=== PATIENT | male | born 1945 | race Caucasian/White ===

== ENCOUNTER 2017-09-30 11:08 | Inpatient (IN) ==
[2017-09-30] MEDS ORDERED: Morphine Inj 4 MG/ML Vial IV.PUSH ONE (11:45)
[2017-09-30] MEDS ORDERED: Piperacil/Tazo 4.5 GM Premix 4.5 GM/100 ML BAG IV.SIG ONE (11:50)
[2017-09-30] MEDS ORDERED: Vancomycin Inj 1,250 MG in Sodium Chlor 0.9% Inj 250 ML IV.SIG ONE (11:50)
--- NOTE | 2017-09-30 12:34 | XR ---
EXAM DATE: 09/30/2017 12:28 PM EDT AGE/SEX: 71 years / Male INDICATIONS: Left foot pain, fall. CLINICAL DATA: This is the patient's initial encounter. Patient reports that signs and symptoms have been present for 1 day and indicates a pain score of 7/10. MEDICAL/SURGICAL HISTORY: None. None. COMPARISON: No prior exams available for comparison. FINDINGS: Views of the left foot obtained. There is some minimal irregularity along the bases of the proximal p halanges 2 through 4. Soft tissues are prominent. Vascular calcifications. Large plantar calcaneal s pur. No radiopaque foreign bodies seen. CONCLUSION: Minimal irregularity along the bases of the proximal phalanges 2 through 4 to be fractures of indeter minate age. Clinical correlation as to whether patient has pain at the base of the toes. Electronically signed by: Bradley Smith MD 09/30/2017 12:33 PM EDT
[2017-09-30 12:42] LABS: Baso # (Auto) 0.1 th/mm3 (0.0-0.2); Baso % (Auto) 1.2 % (0.0-2.0); Eos # (Auto) 0.3 th/mm3 (0.0-0.4); Eos % (Auto) 3.9 % (0.0-4.0); Hematocrit 35.1 % (39.0-51.0); Hemoglobin 11.4 gm/dL (13.0-17.0); Lymph # (Auto) 1.4 th/mm3 (1.0-4.8); Lymph % (Auto) 17.8 % (9.0-44.0); Mean Corpuscular HGB Conc 32.4 % (32.0-36.0); Mean Corpuscular Hemoglobin 30.3 pg (27.0-34.0); Mean Corpuscular Volume 93.3 fL (80.0-100.0); Mean Platelet Volume 8.9 fL (7.0-11.0); Mono # (Auto) 0.6 th/mm3 (0.0-0.9); Mono % (Auto) 7.2 % (0.0-8.0); Neut # (Auto) 5.6 th/mm3 (1.8-7.7); Neut % (Auto) 69.9 % (16.0-70.0); Platelet Count 186 th/mm3 (150-450); Red Blood Count 3.76 mil/mm3 (4.50-5.90); Red Cell Distribution Width 16.5 % (11.6-17.2)
[2017-09-30 12:54] LABS: INR 1.5 Ratio
[2017-09-30 12:59] LABS: Calcium 8.6 mg/dL (8.5-10.1); Carbon Dioxide 26.7 meq/L (21.0-32.0)
--- NOTE | 2017-09-30 14:12 | P.HPFP ---
History of Present Illness Primary Care Physician: Lorelei Choi MD <Shreya Gould - 10/01/17 11:12> Lorelei Choi MD <Sisi Ulloa - 09/30/17 14:12> History of Present Illness: He is doing well this morning and has minimal if any complaints of pain. It was explained to him that there will be an attempt to get a bone biopsy to determine if he does have osteo-and what bacteria is present. He states he is essentially oliguric with his renal failure just over the past few years. He has been on dialysis for 4 years total. He is a serious vasculopath who had his first [place] in his 30s. <Shreya Gould - 10/01/17 11:12> 71 year old male with PMH of ESRD and CVD presents to the emergency room today due to swollen/necrotic Left middle toe. He stated he stubbed his toe on the living room stairs about 1 month ago. The toe was not bleeding when he hit it but he states that it looked black when he hit the toe. He started hopping on one foot for the majority of the month and stated that pain became throbbing as the month progressed. He describes the pain as a shocking pain, was given morphine in the ED which seemed to help his pain. He also has associated numbness and tingling in the Left foot. He can hop on his left foot but not able to be fully weightbearing. His [id number] noticed that his left middle toe was not healing appropriately and took him to the hardware sales assistant (Waylon) yesterday who sent him to the emergency room with the following note: "Please admit to medicine with a consult to podiatry and vascular surgery. Left foot osteomyelitis, no pulses. Needs lab, CTA with runoff, IV antibiotics days." Pulses were detected on Doppler in the emergency room. He denies any fever, night sweats or chills, no nausea or vomiting. Denies any chest pain, shortness of breath, heart palpitations, abdominal pain, problems with urination or defecation, claudication symptoms. 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 This includes certification that hospital inpatient services are reasonable and necessary and in the case of services not specified as inpatient-only under 42 CFR 419.22(n), that they are appropriately provided as inpatient services in accordance to with the 2-midnight benchmark under 43 CFR 412.3(e) <Shreya Gould 10/01/17 11:12> I certify that the inpatient services were ordered in accordance with Medicare regulations governing the order. This includes certification that hospital inpatient services are reasonable and necessary and in the case of services not specified as inpatient-only under 42 CFR 419.22(n), that they are appropriately provided as inpatient services in accordance to with the 2-midnight benchmark under 43 CFR 412.3(e) <Sisi Ulloa 09/30/17 14:12> Review of Systems other (Please see his history and physical done yesterday and his review of system) <Shryea Gould 10/01/17 11:12> All other systems reviewed negative except as stated in HPI < Sisi Ulloa 09/30/17 17:23> Constitutional: Denies chills, Denies fever(s) <Sisi Ulloa 09/30/17 14: 36> Eyes: Denies blurry vision <Sisi Ulloa 09/30/17 14:36> Cardiovascular: Denies chest pain, Denies rapid, pounding, or irregular heartbeat <Sisi Ulloa 09/30/17 14:36> Respiratory: Denies chest congestion, Denies cough <Sisi Ulloa 09/30/17 14:36> Gastrointestinal: Denies abdominal pain <Sisi Ulloa - 09/30/17 14:36> PMFSH - History History Provided By: Patient, Family Member <Sisi Ulloa - 09/30/17 14:12> - Medical History Medical History: Medical History (Last Updated 09/30/17 @ 14:35 by Sisi Ulloa MD, R1) Cardiac defibrillator in place Congestive heart failure Dialysis patient Fistula Hypertension Past heart attack <Shreya Gould Cira - 10/01/17 10:53> Medical History (Last Updated 09/30/17 @ 14:35 by Sisi Ulloa MD, R1) Cardiac defibrillator in place Congestive heart failure Dialysis patient Fistula Hypertension Past heart attack <Sisi Ulloa - 09/30/17 14:36> - Surgical History Surgical History: Surgical History (Last Updated 09/30/17 @ 14:35 by Sisi Ulloa MD, R1) Hx of cardiac cath <Shreya Gould Cira - 10/01/17 10:53> Surgical History (Last Updated 09/30/17 @ 14:35 by Sisi Ulloa MD, R1) Hx of cardiac cath <Sisi Ulloa - 09/30/17 14:36> - Family History Family History: Family History (Last Updated 09/30/17 @ 14:35 by Sisi Ulloa MD, R1) Father Cancer Mother Cancer Sister Family history of cancer Brother Diabetes Sister Diabetes <BryannaShreya august Cira - 10/01/17 10:53> Family History (Last Updated 09/30/17 @ 14:35 by Sisi Ulloa MD, R1) Father Cancer Mother Cancer Sister Family history of cancer Brother Diabetes Sister Diabetes <Sisi Ulloa - 09/30/17 14:36> - Tobacco History Smoking Status: Former smoker <Sisi Ulloa - 09/30/17 14:12> - Alcohol History How Often Do You Have a Drink Containing Alcohol: Never <Sisi Ulloa - 01/07 14:12> - Substance Use History Substance History: No History of Abuse, Past History (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) <Sisi Ulloa - 09/30/17 14:36> - Travel History Recent Travel in the [place] Within the Last 8 Weeks: No <Sisi Ulloa - 14:12> Recent Travel Out of the Country Within the Last 8 Weeks: No <Sisi Ulloa - 09/30/17 14:12> - Immunization History Tetanus Immunization: <5 Years <Sisi Ulloa - 09/30/17 14:12> Hx Influenza Vaccine This Season: Yes <LurdesjuarezSeng osorioSisi - 09/30/17 14:12> Medications and Allergies Allergies Allergy/AdvReac Type Severity Reaction Status Date / Time neomycin Allergy Severe Unverified 10/04/16 23:37 <Shreya Gould - 10/01/17 11:12> Home Medications Medication Instructions Recorded Confirmed Type carvedilol 6.25 mg PO BID 09/30/17 09/30/17 History fluoxetine 20 mg PO DAILY 09/30/17 09/30/17 History folic acid 1 mg PO DAILY 09/30/17 09/30/17 History furosemide 20 mg PO DAILY 09/30/17 09/30/17 History isosorbide mononitrate 30 mg PO DAILY 09/30/17 09/30/17 History mirtazapine 15 mg PO DAILY 09/30/17 09/30/17 History pantoprazole 40 mg PO DAILY 09/30/17 09/30/17 History vit B comp no.6-cyqma-[id number]-biotin 1 tab PO DAILY 09/30/17 09/30/17 History [Fanny-Emily Rx] warfarin 5 mg PO DAILY 09/30/17 09/30/17 History <Shreya Gould - 10/01/17 11:12> Active Medications: Active Medications Acetaminophen (Tylenol) 650 mg PO Q4H PRN PRN Reason: Temp > 100.4 Acetaminophen (Tylenol) 650 mg PO UNSCH PRN PRN Reason: SEE LABEL COMMENTS Al Hydroxide/Mg Hydroxide (Milk Of Magnesia Liq) 30 ml PO Q12H PRN PRN Reason: Mild Constipation Bisacodyl (Dulcolax Supp) 10 mg RECTAL DAILY PRN PRN Reason: SEVERE CONSITIPATION Carvedilol (Coreg) 6.25 mg PO BID VSEN Last Admin: 10/01/17 09:19 Dose: 6.25 mg Clonidine HCl (Catapres) 0.1 mg PO UNSCH PRN PRN Reason: SEE LABEL COMMENTS Diphenhydramine HCl (Benadryl) 25 mg PO UNSCH PRN PRN Reason: SEE LABEL COMMENTS Epoetin Ford (Epogen Inj) 5,000 unit IV.PUSH UNSCH PRN PRN Reason: SEE LABEL COMMENTS Fluoxetine HCl (Prozac) 20 mg PO DAILY SVNE Last Admin: 10/01/17 09:19 Dose: 20 mg Gelatin (Gelfoam 12 Mm/7 Mm Topical) 1 foam TOPICAL PRN PRN PRN Reason: help stop bleeding from site Gentamicin Sulfate (Gentamicin Inj) 20 mg OTHER WITH DIALYSIS PRN PRN Reason: Dwell Gentamycin Lock Heparin Sodium (Porcine) (Heparin Inj) 8,000 units OTHER WITH DIALYSIS PRN PRN Reason: for machine prime Heparin Sodium (Porcine) (Heparin Inj) 1,000 units OTHER WITH DIALYSIS PRN PRN Reason: Dwell Heparin to Fill Catheter Albumin Human (Flexbumin 25% Inj) 100 mls @ 60 mls/hr IV.SIG WITH DIALYSIS PRN PRN Reason: hypotension / volume replace Sodium Chloride (Ns Inj) 1,000 mls @ 200 mls/hr OTHER .Q5H PRN PRN Reason: for dialyzer flush PRN Sodium Chloride (Ns Inj) 1,000 mls @ 0 mls/hr IV.CONT .Q0M PRN PRN Reason: hypotension / volume replace Sodium Chloride (Ns Inj) 1,000 mls @ 0 mls/hr OTHER .Q0M PRN PRN Reason: for prime and rinse back Lactulose (Lactulose Liq) 30 ml PO DAILY PRN PRN Reason: SEVERE CONSITIPATION Mannitol (Mannitol Inj) 12.5 gm IV.PUSH UNSCH PRN PRN Reason: hypotension / volume replace Morphine Sulfate (Morphine Inj) 4 mg IV.PUSH Q3H PRN PRN Reason: PAIN 6-10;IF UNABLE TO TAKE PO Last Admin: 10/01/17 09:23 Dose: 4 mg Morphine Sulfate (Morphine Inj) 2 mg IV.PUSH Q3H PRN PRN Reason: PAIN 3-5; IF UABLE TO TAKE PO Naloxone HCl (Narcan Inj) 0.4 mg IV.PUSH UNSCH PRN PRN Reason: SEE LABEL COMMENTS Nitroglycerin (Nitrostat Sl) 0.4 mg SL Q5M PRN PRN Reason: CHEST PAIN Ondansetron HCl (Zofran Inj) 4 mg IV.PUSH Q6H PRN PRN Reason: NAUSEA OR VOMITING Ondansetron HCl (Zofran Inj) 4 mg IV.PUSH UNSCH PRN PRN Reason: NAUSEA OR VOMITING Pantoprazole Sodium (Protonix) 40 mg PO DAILY SVEN Last Admin: 10/01/17 09:18 Dose: 40 mg Sennosides (Senokot) 17.2 mg PO Q12H PRN PRN Reason: Moderate Constipation Sodium Chloride (Ns Flush) 5 ml IV.FLUSH PRN PRN PRN Reason: flush each lumen during HD Temazepam (Restoril) 15 mg PO HS PRN PRN Reason: INSOMNIA <Shreya Gould - 10/01/17 10:53> Exam Vital signs: Vital Signs 09/30/17 11:19 09/30/17 11:50 09/30/17 12:50 Temperature 97.3 F L Pulse Rate 73 71 69 Respiratory Rate 13 17 18 Blood Pressure 109/55 L 98/52 L 98/52 L Pulse Oximetry 97 96 96 09/30/17 13:50 09/30/17 15:59 09/30/17 18:16 Temperature Pulse Rate 72 74 76 Respiratory Rate 17 18 18 Blood Pressure 107/53 L 121/57 L 120/56 L Pulse Oximetry 94 L 96 96 09/30/17 20:44 09/30/17 23:54 10/01/17 02:00 Temperature 97.7 F 97.4 F L Pulse Rate 70 69 Respiratory Rate 18 18 16 Blood Pressure 105/54 L 95/51 L Pulse Oximetry 95 97 10/01/17 03:32 10/01/17 08:00 10/01/17 09:17 Temperature 97.3 F L 97.5 F L Pulse Rate 72 71 75 Respiratory Rate 18 14 Blood Pressure 110/60 98/50 L 135/61 Pulse Oximetry 95 96 Intake & Output 09/30/17 10/01/17 10/01/17 18:59 06:59 18:59 Intake Total 362.5 / 362.5 480 / 480 Balance 362.5 / 362.5 480 / 480 Weight 77 kg 79.3 kg Intake: IV 362.5 / 362.5 Zosyn 4.5 GM Premix 4.5 gm In 100 / 100 100 ml @ 200 mls/hr IV.SIG ONCE ONE Rx#:[id number] Vancomycin Inj 1,250 MG In NS 262.5 / 262.5 Inj 250 ML @ 250 mls/hr IV.SIG ONCE ONE Rx#:[id number] Oral 480 / 480 Other: # Voids 0 Date of Last Bowel Movement 09/29/17 # Bowel Movements 0 Weight On Admission 79.379 kg <BryannaShreya august Cira - 10/01/17 11:12> Vital Signs 09/30/17 11:19 09/30/17 11:50 09/30/17 12:50 Temperature 97.3 F L Pulse Rate 73 71 69 Respiratory Rate 13 17 18 Blood Pressure 109/55 L 98/52 L 98/52 L Pulse Oximetry 97 96 96 09/30/17 13:50 Temperature Pulse Rate 72 Respiratory Rate 17 Blood Pressure 107/53 L Pulse Oximetry 94 L Intake & Output 09/29/17 09/30/17 09/30/17 18:59 06:59 18:59 Intake Total 362.5 / 362.5 Balance 362.5 / 362.5 Weight 77 kg Intake: IV 362.5 / 362.5 Zosyn 4.5 GM Premix 4.5 gm In 100 / 100 100 ml @ 200 mls/hr IV.SIG ONCE ONE Rx#:[id number] Vancomycin Inj 1,250 MG In NS 262.5 / 262.5 Inj 250 ML @ 250 mls/hr IV.SIG ONCE ONE Rx#:[id number] <Sisi Ulloa - 09/30/17 14:12> - Constitutional no acute distress, average body habitus, cooperative <PortolaShreya Cira - 10/01/17 11:12> no acute distress <Sisi Ulloa - 09/30/17 17:23> - Routine HEENT Exam Head: Present: normocephalic, atraumatic <Sisi Ulloa - 09/30/17 17:23> - Routine Neck Exam Present: swelling (He has what feels like a fatty tumor on his left neck,it is soft and mobile) <BryannaDeejayShreya M - 10/01/17 11:12> - Routine Respiratory Exam Present: CTA bilaterally <Sisi Ulloa - 09/30/17 17:23> - Routine Cardiovascular Exam Present: murmur. Absent: gallop, rubs <Shreya Gould Cira - 02/06 11:12> Present: RRR, S1, S2. Absent: murmur <Sisi Ulloa - 17:23> - Routine Abdominal Exam Present: soft, normoactive bowel sounds. Absent: tenderness <Sisi Ulloa - 09/30/17 17:23> - Routine Extremities Exam Present: extremity cold to touch. Absent: pulses intact (Pulses appreciated Via Doppler, PTand DP pulses nonpalpable.) <Sisi Ulloa - 09/30/17 17:23> Comments: Both feet are cool to the touch at all metatarsals bilaterally. Unable to appreciate a palpable dorsalis pedis and posterior tibialis pulse. Patient is able to wiggle his toes. Sensation to light touch intact bilaterally in both feet. There is a 2 cm necrotic ulcer appreciated on the left toe with the appearance of bone. 0.5 cm area of necrosis appreciated on the left hallux , 0.5 cm necrotic area appreciated on the right hallux. <Sisi Ulloa - 09/30/17 17:23> Results - Labs Result diagrams: 09/30/17 11:50 09/30/17 11:50 <Shreya Gould Cira - 10/01/17 11:12> Abnormal lab results 09/30/17 09/30/17 09/30/17 Range/Units 11:50 11:50 11:50 RBC 3.76 L (4.50-5.90) mil/mm3 Hgb 11.4 L (13.0-17.0) gm/dL Hct 35.1 L (39.0-51.0) % PT 15.0 H (9.8-11.6) sec Chloride 97 L (98-107) meq/L BUN 36 H (7-18) mg/dL Creatinine 9.06 H (0.60-1.30) mg/dL Estimated GFR 6 L (>89) mL/min Random Glucose 108 H (74-106) mg/dL C-Reactive Protein (0.00-0.30) mg/dL 09/30/17 Range/Units 11:50 RBC (4.50-5.90) mil/mm3 Hgb (13.0-17.0) gm/dL Hct (39.0-51.0) % PT (9.8-11.6) sec Chloride (98-107) meq/L BUN (7-18) mg/dL Creatinine (0.60-1.30) mg/dL Estimated GFR (>89) mL/min Random Glucose (74-106) mg/dL C-Reactive Protein 5.00 H (0.00-0.30) mg/dL Short CBC 09/30/17 Range/Units 11:50 WBC 8.0 (4.0-11.0) th/mm3 Hgb 11.4 L (13.0-17.0) gm/dL Hct 35.1 L (39.0-51.0) % Plt Count 186 (150-450) th/mm3 [facility] 09/30/17 11:50 Sodium 136 Potassium 4.0 Chloride 97 L Carbon Dioxide 26.7 BUN 36 H Creatinine 9.06 H Calcium 8.6 <Shreya Gould - 10/01/17 11:12> Abnormal lab results 09/30/17 09/30/17 09/30/17 Range/Units 11:50 11:50 11:50 RBC 3.76 L (4.50-5.90) mil/mm3 Hgb 11.4 L (13.0-17.0) gm/dL Hct 35.1 L (39.0-51.0) % PT 15.0 H (9.8-11.6) sec Chloride 97 L (98-107) meq/L BUN 36 H (7-18) mg/dL Creatinine 9.06 H (0.60-1.30) mg/dL Estimated GFR 6 L (>89) mL/min Random Glucose 108 H (74-106) mg/dL Short CBC 09/30/17 Range/Units 11:50 WBC 8.0 (4.0-11.0) th/mm3 Hgb 11.4 L (13.0-17.0) gm/dL Hct 35.1 L (39.0-51.0) % Plt Count 186 (150-450) th/mm3 [facility] 09/30/17 11:50 Sodium 136 Potassium 4.0 Chloride 97 L Carbon Dioxide 26.7 BUN 36 H Creatinine 9.06 H Calcium 8.6 <Sisi Ulloa - 09/30/17 14:12> - Imaging Impressions Chest X-Ray 09/30/17 00:00 CONCLUSION: New patchy infiltrate in the right perihilar and infrahilar area. Foot CT 09/30/17 00:00 CONCLUSION: 1. No acute fracture or joint dislocation. Foot X-Ray 09/30/17 11:45 CONCLUSION: Minimal irregularity along the bases of the proximal phalanges 2 through 4 to be fractures of indeterminate age. Clinical correlation as to whether patient has pain at the base of the toes. <Shreya Gould - 10/01/17 11:12> Impressions Foot X-Ray 09/30/17 11:45 CONCLUSION: Minimal irregularity along the bases of the proximal phalanges 2 through 4 to be fractures of indeterminate age. Clinical correlation as to whether patient has pain at the base of the toes. <Sisi Ulloa - 09/30/17 14:12> Caprini VTE Risk Assessment Caprini VTE Risk Assessment: No/Low Risk (score <= 1) <Sisi Ulloa - 17:23> Caprini Risk Assessment Model: Point Value = 1 Point Value = 2 Point Value = 3 Point Value = 5 Age 41-60 Minor surgery BMI > 25 kg/m2 Swollen legs Varicose veins or History of unexplained or recurrent spontaneous Oral contraceptives or hormone replacement Sepsis (< 1 month) Serious lung disease, including pneumonia (< 1 month) Abnormal pulmonary function Acute myocardial infarction Congestive heart failure (< 1 month) History of inflammatory bowel disease Medical patient at bed rest Age 61-74 Arthroscopic surgery Major open surgery (> 45 min) Laparoscopic surgery (> 45 min) Malignancy Confined to bed (> 72 hours) Immobilizing plaster cast Central venous access Age >= 75 History of VTE Family history of VTE Factor V Leiden Prothrombin [id number] Lupus anticoagulant Anticardiolipin antibodies Elevated serum homocysteine Heparin-induced thrombocytopenia Other congenital or acquired thrombophilia Stroke (< 1 month) Elective arthroplasty Hip, pelvis, or leg fracture Acute spinal cord injury (< 1 month) <Shreya Gould - 10/01/17 11:12> Point Value = 1 Point Value = 2 Point Value = 3 Point Value = 5 Age 41-60 Minor surgery BMI > 25 kg/m2 Swollen legs Varicose veins or History of unexplained or recurrent spontaneous Oral contraceptives or hormone replacement Sepsis (< 1 month) Serious lung disease, including pneumonia (< 1 month) Abnormal pulmonary function Acute myocardial infarction Congestive heart failure (< 1 month) History of inflammatory bowel disease Medical patient at bed rest Age 61-74 Arthroscopic surgery Major open surgery (> 45 min) Laparoscopic surgery (> 45 min) Malignancy Confined to bed (> 72 hours) Immobilizing plaster cast Central venous access Age >= 75 History of VTE Family history of VTE Factor V Leiden Prothrombin [id number] Lupus anticoagulant Anticardiolipin antibodies Elevated serum homocysteine Heparin-induced thrombocytopenia Other congenital or acquired thrombophilia Stroke (< 1 month) Elective arthroplasty Hip, pelvis, or leg fracture Acute spinal cord injury (< 1 month) <Sisi Ulloa - 09/30/17 14:12> Prophylaxis Regimen: Total Risk Factor Score Risk Level Prophylaxis Regimen 0-1 Low Early ambulation 2 Moderate Order ONE of the following: *Sequential Compression Device (SCD) *Heparin 5000 units SQ BID 3-4 Higher Order ONE of the following medications: *Heparin 5000 units SQ TID *Enoxaparin/Lovenox 40 mg SQ daily (WT < 150 kg, CrCl > 30 mL/min) *Enoxaparin/Lovenox 30 mg SQ daily (WT < 150 kg, CrCl > 10-29 mL/min) *Enoxaparin/Lovenox 30 mg SQ BID (WT < 150 kg, CrCl > 30 mL/min) AND/OR *Sequential Compression Device (SCD) 5 or more Highest Order ONE of the following medications: *Heparin 5000 units SQ TID (Preferred with Epidurals) *Enoxaparin/Lovenox 40 mg SQ daily (WT < 150 kg, CrCl > 30 mL/min) *Enoxaparin/Lovenox 30 mg SQ daily (WT < 150 kg, CrCl > 10-29 mL/min) *Enoxaparin/Lovenox 30 mg SQ BID (WT < 150 kg, CrCl > 30 mL/min) AND *Sequential Compression Device (SCD) <Shreya Gould - 10/01/17 11:12> Total Risk Factor Score Risk Level Prophylaxis Regimen 0-1 Low Early ambulation 2 Moderate Order ONE of the following: *Sequential Compression Device (SCD) *Heparin 5000 units SQ BID 3-4 Higher Order ONE of the following medications: *Heparin 5000 units SQ TID *Enoxaparin/Lovenox 40 mg SQ daily (WT < 150 kg, CrCl > 30 mL/min) *Enoxaparin/Lovenox 30 mg SQ daily (WT < 150 kg, CrCl > 10-29 mL/min) *Enoxaparin/Lovenox 30 mg SQ BID (WT < 150 kg, CrCl > 30 mL/min) AND/OR *Sequential Compression Device (SCD) 5 or more Highest Order ONE of the following medications: *Heparin 5000 units SQ TID (Preferred with Epidurals) *Enoxaparin/Lovenox 40 mg SQ daily (WT < 150 kg, CrCl > 30 mL/min) *Enoxaparin/Lovenox 30 mg SQ daily (WT < 150 kg, CrCl > 10-29 mL/min) *Enoxaparin/Lovenox 30 mg SQ BID (WT < 150 kg, CrCl > 30 mL/min) AND *Sequential Compression Device (SCD) <Sisi Ulloa - 09/30/17 14:12> 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 Code(s): L97.904 - Non-pressure chronic ulcer of unspecified part of unspecified lower leg with necrosis of bone Status: Acute (2) ESRD (end stage renal disease) Code(s): N18.6 - End stage renal disease Status: Acute (3) Hypertension Code(s): I10 - Essential (primary) hypertension Status: Acute (4) Anxiety Code(s): F41.9 - Anxiety disorder, unspecified Status: Acute (5) Congestive heart failure Code(s): I50.9 - Heart failure, unspecified Status: Acute (6) Nutrition, metabolism, and development symptoms Code(s): R63.8 - Other symptoms and signs concerning food and fluid intake Status: Acute (7) DVT prophylaxis Status: Acute <Shreya Gould - 10/01/17 11:12> 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 Patient afebrile, VSS, White count 8.0, x-ray does not show any signs of osteomyelitis. Podiatry treat consulted, will appreciate recommendations. Vascular surgery consulted, appreciate recommendations We will obtain tissue culture via podiatry. Blood cultures ordered, follow-up. ESRCRP ordered. Follow-up Follow-up CMP and CBC in a.m. Tylenol as needed for pain control. Morphine for breakthrough. Will consider Ceftriaxone and Clindamycin for coverage if Cultures come back positive for infection. (2) ESRD (end stage renal disease) Code(s): N18.6 - End stage renal disease Status: Acute Plan: Creatinine: 9.06. On dialysis but missed his dialysis appointment today. Nephrology consulted, appreciate recommendations. Please avoid any nephrotoxic drugs. (3) Hypertension Code(s): I10 - Essential (primary) hypertension Status: Acute Plan: Vital signs stable. Continue home medications Vital signs every 4. Patient currently on telemetry. EKG ordered. Follow-up. (4) Anxiety Code(s): F41.9 - Anxiety disorder, unspecified Status: Acute Plan: Continue home medications. (5) Congestive heart failure Code(s): I50.9 - Heart failure, unspecified Status: Acute Plan: Currently stable. Continue to monitor On Lasix 40 mg at home, will hold and appreciate nephrology's recommendations status post dialysis. Lasix dose is based on dialysis routine. (6) Nutrition, metabolism, and development symptoms Code(s): R63.8 - Other symptoms and signs concerning food and fluid intake Status: Acute Plan: Fluids: Encourage p.o. Electrolytes: Monitor and replete as needed. Diet. Cardiac (7) DVT prophylaxis Status: Acute Plan: SCDs only. PT/INR ordered in a.m. Follow-up. <Sisi Ulloa - 09/30/17 17:42> - Attending Attestation The exam, history, and the medical decision-making described in the above note were completed with the assistance of the resident physician. I reviewed and agree with the findings presented. I attest that I had a [id number] encounter with the patient on the same day, and personally performed and documented my assessment and findings in the medical record. He was seen on the day of admission. Fortunately his white count is not elevated he is not febrile and he would be best served if possible by getting a bone biopsy to see if he has osteomyelitis and what organism is present. Appreciate the help of podiatry as he may need amputation of that toe. Also he will need a vascular study as almost certainly he has poor peripheral vascular blood flow. <Shreya Gould - 10/01/17 10:53> <Shreya Gould M - Last Filed: 10/01/17 11:12> (3) Hypertension Qualifiers: Hypertension type: renovascular hypertension Qualified Code(s): I15.0 - Renovascular hypertension <Shreya Gould - Last Filed: 10/01/17 11:12> (3) Hypertension Qualifiers: Hypertension type: renovascular hypertension Qualified Code(s): I15.0 - Renovascular hypertension
--- NOTE | 2017-09-30 14:32 | ED ---
HPI General Chief Complaint: Extremity Injury, Lower Stated Complaint: Medical/toe complaint Time Seen by Provider: 09/30/17 11:31 Source: patient and family Mode of arrival: ambulatory Limitations: no limitations History of Present Illness HPI Narrative: Patient is a 71-year-old male, past medical history significant for hypertension, end-stage renal disease on dialysis (due today), coronary artery disease and peripheral vascular disease who presents with complaint of chronic infection to a toe on his left foot (3rd toe). He was seen by a citizenship teacher yesterday and told to come to the emergency department for further workup, admission and likely amputation. Patient complains of pain but otherwise feels well. Family was told that he had no pulses in his left foot yesterday. Onset (ago): unknown Related Data Home Medications Medication Instructions Recorded Confirmed carvedilol 6.25 mg PO BID 09/30/17 09/30/17 fluoxetine 20 mg PO DAILY 09/30/17 09/30/17 folic acid 1 mg PO DAILY 09/30/17 09/30/17 furosemide 20 mg PO DAILY 09/30/17 09/30/17 isosorbide mononitrate 30 mg PO DAILY 09/30/17 09/30/17 mirtazapine 15 mg PO DAILY 09/30/17 09/30/17 pantoprazole 40 mg PO DAILY 09/30/17 09/30/17 vit B comp no.8-htety-V-biotin 1 tab PO DAILY 09/30/17 09/30/17 [[facility]] warfarin 5 mg PO DAILY 09/30/17 09/30/17 Allergies Allergy/AdvReac Type Severity Reaction Status Date / Time neomycin Allergy Severe Unverified 10/04/16 23:37 Review of Systems ROS: all other systems reviewed are negative Constitutional Denies chills and Denies fever(s) Eyes Denies blurry vision ENT Denies nasal congestion Cardiovascular Denies chest pain Respiratory Denies dyspnea Gastrointestinal Denies abdominal pain Genitourinary Denies flank pain Musculoskeletal Denies back pain Integumentary/Breasts Denies rash Neurologic Denies headache(s) Psychiatric Denies confusion Endocrine Denies fatigue [facility] Medical History Medical History Cardiac defibrillator in place (Acute) Dialysis patient (Acute) Fistula (Acute) Hypertension (Acute) Past heart attack (Acute) Surgical History Surgical History Hx of cardiac cath (Acute) Family History Family History Father Cancer Mother Cancer Sister Family history of cancer Brother Diabetes Sister Diabetes Social History Social History Substance History: No History of Abuse and Past History (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 Toes on bilateral feet are slightly erythematous but not warm and with normal cap refill. Left third toe has an area of necrosis. HEAD: Atraumatic. Normocephalic. EYES: Pupils equal and round. No scleral icterus. No injection or drainage. ENT: No nasal bleeding or discharge. Mucous membranes pink and moist. NECK: Trachea midline. No JVD. CARDIOVASCULAR: Regular rate and rhythm. No murmur appreciated. Strong DP and PT pulses bilaterally with Doppler. Positive thrill in left upper extremity ( fistula). RESPIRATORY: No accessory muscle use. Clear to auscultation. Breath sounds equal bilaterally. GASTROINTESTINAL: Abdomen soft, non-tender, nondistended. Hepatic and splenic margins not palpable. MUSCULOSKELETAL: No obvious deformities. No clubbing. No cyanosis. NEUROLOGICAL: Awake and alert. No obvious cranial nerve deficits. Motor grossly within normal limits. Normal speech. PSYCHIATRIC: Appropriate mood and affect; insight and judgment normal. Course Initial Documented Vital Signs Temperature 97.3 F L 09/30/17 11:19 Pulse Rate 73 09/30/17 11:19 Respiratory Rate 13 09/30/17 11:19 Blood Pressure 109/55 L 09/30/17 11:19 Pulse Oximetry 97 09/30/17 11:19 Last Documented Vital Signs Temperature 97.3 F L 09/30/17 11:19 Pulse Rate 72 09/30/17 13:50 Respiratory Rate 17 09/30/17 13:50 Blood Pressure 107/53 L 09/30/17 13:50 Pulse Oximetry 94 L 09/30/17 13:50 Medical Decision Making MDM Narrative Medical decision making narrative: Patient is a 71-year-old male who presents with complaint of necrotic area to the left third toe. He was sent here by podiatry to be admitted and have a likely amputation. He has strong Doppler signals PT and DP bilaterally this CTA was not done. Labs were unremarkable from baseline. He was given antibiotics empirically and admitted to the resident admitting service for further evaluation and management. Differential Diagnosis Differential Diagnosis: Differential diagnosis includes but is not limited to osteomyelitis, fracture, necrotizing fasciitis, ischemia. Medical Records Medical records reviewed: Yes I reviewed the patient's medical records. Lab Data Lab results reviewed: Yes I reviewed the patient's lab results. Lab results narrative: Labs reveal chronic kidney disease with a normal potassium. Result diagrams: 09/30/17 11:50 09/30/17 11:50 Lab Results 09/30/17 09/30/17 09/30/17 Range/Units 11:50 11:50 11:50 WBC 8.0 (4.0-11.0) th/mm3 RBC 3.76 L (4.50-5.90) mil/mm3 Hgb 11.4 L (13.0-17.0) gm/dL Hct 35.1 L (39.0-51.0) % MCV 93.3 (80.0-100.0) fL MCH 30.3 (27.0-34.0) pg MCHC 32.4 (32.0-36.0) % RDW 16.5 (11.6-17.2) % Plt Count 186 (150-450) th/mm3 MPV 8.9 (7.0-11.0) fL Neut % (Auto) 69.9 (16.0-70.0) % Lymph % (Auto) 17.8 (9.0-44.0) % [place] % (Auto) 7.2 (0.0-8.0) % Eos % (Auto) 3.9 (0.0-4.0) % Baso % (Auto) 1.2 (0.0-2.0) % Neut # (Auto) 5.6 (1.8-7.7) th/mm3 Lymph # (Auto) 1.4 (1.0-4.8) th/mm3 [place] # (Auto) 0.6 (0.0-0.9) th/mm3 Eos # (Auto) 0.3 (0.0-0.4) th/mm3 Baso # (Auto) 0.1 (0.0-0.2) th/mm3 WBC Differential . Differential Comment Auto diff final PT 15.0 H (9.8-11.6) sec INR 1.5 Ratio Sodium 136 (136-145) meq/L Potassium 4.0 (3.5-5.1) meq/L Chloride 97 L (98-107) meq/L Carbon Dioxide 26.7 (21.0-32.0) meq/L Anion Gap 12 (5-15) meq/L BUN 36 H (7-18) mg/dL Creatinine 9.06 H (0.60-1.30) mg/dL Estimated GFR 6 L (>89) mL/min Random Glucose 108 H (74-106) mg/dL Calcium 8.6 (8.5-10.1) mg/dL Imaging Data Attestation: I personally reviewed and interpreted this imaging study as follows : My impression: No soft tissue gas. Radiologist's impression: Foot X-Ray 09/30/17 11:45 CONCLUSION: Minimal irregularity along the bases of the proximal phalanges 2 through 4 to be fractures of indeterminate age. Clinical correlation as to whether patient has pain at the base of the toes. Discharge Plan Discharge Disposition Patient Disposition: 30 Still Patient Discharge Condition Condition: Stable Discharge Details Diagnosis: Osteomyelitis Physicians Team ED Provider: Ce Dowling Primary Care Provider: Lorelei Choi Attending Provider: Shreya Gould Discharge Interventions Interventions: Vital Signs Last Done: 09/30/17 13:50 Status ED Status: Admitted Patient
[2017-09-30] MEDS ORDERED: Temazepam 15 MG Capsule PO PRN (14:55)
[2017-09-30] MEDS ORDERED: Bisacodyl 10 MG Supp RECTAL PRN (14:55)
[2017-09-30] MEDS ORDERED: Acetaminophen 325 MG Tablet PO PRN (14:55)
--- NOTE | 2017-09-30 15:41 | XR ---
EXAM DATE: 09/30/2017 3:35 PM EDT AGE/SEX: 71 years / Male INDICATIONS: . Shortness of breath. Feet infection. CLINICAL DATA: This is the patient's initial encounter. Patient reports that signs and symptoms have been present for 1 day and indicates a pain score of 0/10. MEDICAL/SURGICAL HISTORY: None. Defibrillator. COMPARISON: [facility], XR CHEST PA AND LAT, 01/08/2014. . FINDINGS: On today's examination appears to be a patchy infiltrate in the right perihilar and infrahilar area. The left lung is grossly clear. The heart size is diffusely enlarged but stable compared to the prior study. There is a pacemaker overlying the right chest. There is no pneumothorax. The bony structures are grossly intact. CONCLUSION: New patchy infiltrate in the right perihilar and infrahilar area. Electronically signed by: Catalino Parrish MD 09/30/2017 3:40 PM EDT
--- NOTE | 2017-09-30 16:02 | CT ---
EXAM DATE: 09/30/2017 3:42 PM EDT AGE/SEX: 71 years / Male INDICATIONS: Swollen and necrotic left middle toe. Evaluate for osteomyelitis. CLINICAL DATA: This is the patient's initial encounter. Patient reports that signs and symptoms have been present for 1 month and indicates a pain score of 6/10. MEDICAL/SURGICAL HISTORY: Congestive heart failure. Hypertension. Dialysis. Renal failure. Defib rillator. RADIATION DOSE: 3.45 CTDI (mGy) COMPARISON: [facility], FOOT COMPLETE LEFT 3V, 09/30/2017. . TECHNIQUE: Multiple contiguous axial images were acquired using a multirow detector CT scanner witho ut contrast. Multiplanar reconstruction was performed in the sagittal and coronal planes. Using auto mated exposure control and adjustment of the mA and/or kV according to patient size, radiation dose w as kept as low as reasonably achievable to obtain optimal diagnostic quality images. DICOM format im age data is available electronically for review and comparison. FINDINGS: Bones: The bony structures about the forefoot are in normal alignment. The metatarsi, phalanges, an d distal tarsal row osseous structures are intact. No fracture is seen. Joints: There is some mild degenerative changes at the PIP and DIP joints. Soft Tissues: No soft tissue mass is seen. Other: No foreign bodies seen. CONCLUSION: 1. No acute fracture or joint dislocation. Electronically signed by: Catalino Parrish MD 09/30/2017 4:01 PM EDT
[2017-09-30] MEDS ORDERED: Naloxone Inj 0.4 MG/ML Vial IV.PUSH PRN (17:11)
--- NOTE | 2017-09-30 20:11 | P.PNVS ---
Subjective Subjective/Hospital Course: 09/30/2017 Referral received Full vascular consult to follow Abhinav Rojo Objective Vital Signs / I&O: Vital Signs 09/30/17 11:19 09/30/17 11:50 09/30/17 12:50 Temperature 97.3 F L Pulse Rate 73 71 69 Respiratory Rate 13 17 18 Blood Pressure 109/55 L 98/52 L 98/52 L Pulse Oximetry 97 96 96 09/30/17 13:50 09/30/17 15:59 09/30/17 18:16 Temperature Pulse Rate 72 74 76 Respiratory Rate 17 18 18 Blood Pressure 107/53 L 121/57 L 120/56 L Pulse Oximetry 94 L 96 96 Intake & Output 09/30/17 09/30/17 10/01/17 06:59 18:59 06:59 Intake Total 362.5 / 362.5 Balance 362.5 / 362.5 Weight 77 kg 79.379 kg Intake: IV 362.5 / 362.5 Zosyn 4.5 GM Premix 4.5 gm In 100 / 100 100 ml @ 200 mls/hr IV.SIG ONCE ONE Rx#:[id number] Vancomycin Inj 1,250 MG In NS 262.5 / 262.5 Inj 250 ML @ 250 mls/hr IV.SIG ONCE ONE Rx#:[id number] Other: Weight On Admission 79.379 kg Laboratory Results - last 24 hr 09/30/17 09/30/17 09/30/17 11:50 11:50 11:50 WBC 8.0 RBC 3.76 L Hgb 11.4 L Hct 35.1 L MCV 93.3 MCH 30.3 MCHC 32.4 RDW 16.5 Plt Count 186 MPV 8.9 Neut % (Auto) 69.9 Lymph % (Auto) 17.8 [place] % (Auto) 7.2 Eos % (Auto) 3.9 Baso % (Auto) 1.2 Neut # (Auto) 5.6 Lymph # (Auto) 1.4 [place] # (Auto) 0.6 Eos # (Auto) 0.3 Baso # (Auto) 0.1 WBC Differential . Differential Comment Auto diff final PT 15.0 H INR 1.5 Sodium 136 Potassium 4.0 Chloride 97 L Carbon Dioxide 26.7 Anion Gap 12 BUN 36 H Creatinine 9.06 H Estimated GFR 6 L Random Glucose 108 H Calcium 8.6 C-Reactive Protein 09/30/17 11:50 WBC RBC Hgb Hct MCV MCH MCHC RDW Plt Count MPV Neut % (Auto) Lymph % (Auto) [place] % (Auto) Eos % (Auto) Baso % (Auto) Neut # (Auto) Lymph # (Auto) [place] # (Auto) Eos # (Auto) Baso # (Auto) WBC Differential Differential Comment PT INR Sodium Potassium Chloride Carbon Dioxide Anion Gap BUN Creatinine Estimated GFR Random Glucose Calcium C-Reactive Protein 5.00 H Impressions Chest X-Ray 09/30/17 00:00 CONCLUSION: New patchy infiltrate in the right perihilar and infrahilar area. Foot CT 09/30/17 00:00 CONCLUSION: 1. No acute fracture or joint dislocation. Foot X-Ray 09/30/17 11:45 CONCLUSION: Minimal irregularity along the bases of the proximal phalanges 2 through 4 to be fractures of indeterminate age. Clinical correlation as to whether patient has pain at the base of the toes.
[2017-09-30] MEDS: Carvedilol 6.25 MG Tablet PO SCH (22:07)
--- NOTE | 2017-10-01 08:33 | ECG ---
Date Performed: 09/30/2017 Time Performed: 16:01:36 PTAGE: 71 years EKG: ELECTRONIC ATRIAL PACEMAKER LOW QRS VOLTAGE IN EXTREMITY LEADS POSSIBLE ANTERIOR MYOCARDIAL INFARCTION INFERIOR MYOCARDIAL INFARCTION ABNORMAL ECG PREVIOUS TRACING : 12/04/2013 11.55 DOCTOR: David Phillips Interpretating Date/Time 10/01/2017 08:28:23
[2017-10-01] MEDS ORDERED: Sod Chloride 0.9% Inj 1,000 ML OTHER PRN ×2 (09:08)
[2017-10-01] MEDS ORDERED: Gelatin 12 MM/7 MM Topical Foam TOPICAL PRN (09:08)
[2017-10-01] MEDS ORDERED: Sod Chloride 0.9% Inj 1,000 ML IV.CONT PRN (09:08)
[2017-10-01] MEDS ORDERED: Heparin 10,000 UNITS/10 ML Vial (for IV use) OTHER PRN ×2 (09:08)
[2017-10-01] MEDS ORDERED: Acetaminophen 325 MG Tablet PO PRN (09:09)
[2017-10-01] MEDS: FLUoxetine 20 MG Capsule PO SCH (09:19)
[2017-10-01] MEDS: Carvedilol 6.25 MG Tablet PO SCH ×2 (09:19→21:52)
[2017-10-01] MEDS: Morphine Inj 4 MG/ML Vial IV.PUSH PRN ×3 (09:23→22:10)
--- NOTE | 2017-10-01 10:19 | P.HPFP ---
History of Present Illness Primary Care Physician: Lorelei Choi MD History of Present Illness: 71 year old male with PMH of ESRD and CVD presents to the emergency room today due to swollen/necrotic Left middle toe. He stated he stubbed his toe on the living room stairs about 1 month ago. The toe was not bleeding when he hit it but he states that it looked black when he hit the toe. He started hopping on one foot for the majority of the month and stated that pain became throbbing as the month progressed. He describes the pain as a shocking pain, was given morphine in the ED which seemed to help his pain. He also has associated numbness and tingling in the Left foot. He can hop on his left foot but not able to be fully weightbearing. His [id number] noticed that his left middle toe was not healing appropriately and took him to the steel grinder ([facility]) yesterday who sent him to the emergency room with the following note: "Please admit to medicine with a consult to podiatry and vascular surgery. Left foot osteomyelitis, no pulses. Needs lab, CTA with runoff, IV antibiotics days." Pulses were detected on Doppler in the emergency room. He denies any fever, night sweats or chills, no nausea or vomiting. Denies any chest pain, shortness of breath, heart palpitations, abdominal pain, problems with urination or defecation, claudication symptoms. He is doing well today. He is stable with his vital signs afebrile his white count is normal. 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 This includes certification that hospital inpatient services are reasonable and necessary and in the case of services not specified as inpatient-only under 42 CFR 419.22(n), that they are appropriately provided as inpatient services in accordance to with the 2-midnight benchmark under 43 CFR 412.3(e) Estimated Total Length of Stay (Days): 3 Plans for Post Hospital Care: Home Review of Systems other (See history and physical from yesterday) PMFSH - History History Provided By: Patient, Family Member - Medical History Medical History: Medical History (Last Reviewed 09/30/17 @ 14:36 by Ce Dowling MD) Cardiac defibrillator in place Congestive heart failure Dialysis patient Fistula Hypertension Past heart attack - Surgical History Surgical History: Surgical History (Last Reviewed 10/01/17 @ 11:16 by Shreya Gould MD) Hx of cardiac cath - Family History Family History: Family History (Last Reviewed 09/30/17 @ 14:36 by Ce Dowling MD) Father Cancer Mother Cancer Sister Family history of cancer Brother Diabetes Sister Diabetes - Tobacco History Second Hand Smoke Exposure: No Tobacco Use In Past 30 Days: No Smoking Status: Former smoker Tobacco Type: Cigarettes - Alcohol History How Often Do You Have a Drink Containing Alcohol: Never - Substance Use History Substance History: No History of Abuse - Travel History Recent Travel in the [place] Within the Last 8 Weeks: No Recent Travel Out of the Country Within the Last 8 Weeks: No - Immunization History Tetanus Immunization: Unsure Hx Influenza Vaccine This Season: Yes Medications and Allergies Active Medications: Active Medications Acetaminophen (Tylenol) 650 mg PO Q4H PRN PRN Reason: Temp > 100.4 Acetaminophen (Tylenol) 650 mg PO UNSCH PRN PRN Reason: SEE LABEL COMMENTS Al Hydroxide/Mg Hydroxide (Milk Of Farhat Simental) 30 ml PO Q12H PRN PRN Reason: Mild Constipation Bisacodyl (Dulcolax Supp) 10 mg RECTAL DAILY PRN PRN Reason: SEVERE CONSITIPATION Carvedilol (Coreg) 6.25 mg PO BID REPLACED BY [facility] Last Admin: 10/01/17 09:19 Dose: 6.25 mg Clonidine HCl (Catapres) 0.1 mg PO UNSCH PRN PRN Reason: SEE LABEL COMMENTS Diphenhydramine HCl (Benadryl) 25 mg PO UNSCH PRN PRN Reason: SEE LABEL COMMENTS Epoetin Ford (Epogen Inj) 5,000 unit IV.PUSH UNSCH PRN PRN Reason: SEE LABEL COMMENTS Fluoxetine HCl (Prozac) 20 mg PO DAILY REPLACED BY [facility] Last Admin: 10/01/17 09:19 Dose: 20 mg Gelatin (Gelfoam 12 Mm/7 Mm Topical) 1 foam TOPICAL PRN PRN PRN Reason: help stop bleeding from site Gentamicin Sulfate (Gentamicin Inj) 20 mg OTHER WITH DIALYSIS PRN PRN Reason: Dwell Gentamycin Lock Heparin Sodium (Porcine) (Heparin Inj) 8,000 units OTHER WITH DIALYSIS PRN PRN Reason: for machine prime Heparin Sodium (Porcine) (Heparin Inj) 1,000 units OTHER WITH DIALYSIS PRN PRN Reason: Dwell Heparin to Fill Catheter Albumin Human (Flexbumin 25% Inj) 100 mls @ 60 mls/hr IV.SIG WITH DIALYSIS PRN PRN Reason: hypotension / volume replace Sodium Chloride (Ns Inj) 1,000 mls @ 200 mls/hr OTHER .Q5H PRN PRN Reason: for dialyzer flush PRN Sodium Chloride (Ns Inj) 1,000 mls @ 0 mls/hr IV.CONT .Q0M PRN PRN Reason: hypotension / volume replace Sodium Chloride (Ns Inj) 1,000 mls @ 0 mls/hr OTHER .Q0M PRN PRN Reason: for prime and rinse back Lactulose (Lactulose Liq) 30 ml PO DAILY PRN PRN Reason: SEVERE CONSITIPATION Mannitol (Mannitol Inj) 12.5 gm IV.PUSH UNSCH PRN PRN Reason: hypotension / volume replace Morphine Sulfate (Morphine Inj) 4 mg IV.PUSH Q3H PRN PRN Reason: PAIN 6-10;IF UNABLE TO TAKE PO Last Admin: 10/01/17 09:23 Dose: 4 mg Morphine Sulfate (Morphine Inj) 2 mg IV.PUSH Q3H PRN PRN Reason: PAIN 3-5; IF UABLE TO TAKE PO Naloxone HCl (Narcan Inj) 0.4 mg IV.PUSH UNSCH PRN PRN Reason: SEE LABEL COMMENTS Nitroglycerin (Nitrostat Sl) 0.4 mg SL Q5M PRN PRN Reason: CHEST PAIN Ondansetron HCl (Zofran Inj) 4 mg IV.PUSH Q6H PRN PRN Reason: NAUSEA OR VOMITING Ondansetron HCl (Zofran Inj) 4 mg IV.PUSH UNSCH PRN PRN Reason: NAUSEA OR VOMITING Pantoprazole Sodium (Protonix) 40 mg PO DAILY SVEN Last Admin: 10/01/17 09:18 Dose: 40 mg Sennosides (Senokot) 17.2 mg PO Q12H PRN PRN Reason: Moderate Constipation Sodium Chloride (Ns Flush) 5 ml IV.FLUSH PRN PRN PRN Reason: flush each lumen during HD Temazepam (Restoril) 15 mg PO HS PRN PRN Reason: INSOMNIA Allergies Allergy/AdvReac Type Severity Reaction Status Date / Time neomycin Allergy Severe Unverified 10/04/16 23:37 Home Medications Medication Instructions Recorded Confirmed Type carvedilol 6.25 mg PO BID 09/30/17 09/30/17 History fluoxetine 20 mg PO DAILY 09/30/17 09/30/17 History folic acid 1 mg PO DAILY 09/30/17 09/30/17 History furosemide 20 mg PO DAILY 09/30/17 09/30/17 History isosorbide mononitrate 30 mg PO DAILY 09/30/17 09/30/17 History mirtazapine 15 mg PO DAILY 09/30/17 09/30/17 History pantoprazole 40 mg PO DAILY 09/30/17 09/30/17 History vit B comp no.0-fiejw-Q-biotin 1 tab PO DAILY 09/30/17 09/30/17 History [[facility] Rx] warfarin 5 mg PO DAILY 09/30/17 09/30/17 History Exam Vital signs: Vital Signs 09/30/17 11:19 09/30/17 11:50 09/30/17 12:50 Temperature 97.3 F L Pulse Rate 73 71 69 Respiratory Rate 13 17 18 Blood Pressure 109/55 L 98/52 L 98/52 L Pulse Oximetry 97 96 96 09/30/17 13:50 09/30/17 15:59 09/30/17 18:16 Temperature Pulse Rate 72 74 76 Respiratory Rate 17 18 18 Blood Pressure 107/53 L 121/57 L 120/56 L Pulse Oximetry 94 L 96 96 09/30/17 20:44 09/30/17 23:54 10/01/17 02:00 Temperature 97.7 F 97.4 F L Pulse Rate 70 69 Respiratory Rate 18 18 16 Blood Pressure 105/54 L 95/51 L Pulse Oximetry 95 97 10/01/17 03:32 10/01/17 08:00 10/01/17 09:17 Temperature 97.3 F L 97.5 F L Pulse Rate 72 71 75 Respiratory Rate 18 14 Blood Pressure 110/60 98/50 L 135/61 Pulse Oximetry 95 96 Intake & Output 09/30/17 10/01/17 10/01/17 18:59 06:59 18:59 Intake Total 362.5 / 362.5 480 / 480 Balance 362.5 / 362.5 480 / 480 Weight 77 kg 79.3 kg Intake: IV 362.5 / 362.5 Zosyn 4.5 GM Premix 4.5 gm In 100 / 100 100 ml @ 200 mls/hr IV.SIG ONCE ONE Rx#:[id number] Vancomycin Inj 1,250 MG In NS 262.5 / 262.5 Inj 250 ML @ 250 mls/hr IV.SIG ONCE ONE Rx#:[id number] Oral 480 / 480 Other: # Voids 0 Date of Last Bowel Movement 09/29/17 # Bowel Movements 0 Weight On Admission 79.379 kg - Constitutional no acute distress, average body habitus, cooperative - Routine HEENT Exam Head: Present: normocephalic, atraumatic - Routine Neck Exam Present: swelling (Has a fatty tumor on his left neck that is soft and mobile) - Routine Respiratory Exam Present: CTA bilaterally. Absent: accessory muscle use, patient mechanically ventilated, decreased breath sounds, rales, respiratory distress, rhonchi - Routine Cardiovascular Exam Present: RRR, murmur (Very soft systolic murmur). Absent: gallop, rubs - Routine Abdominal Exam Present: soft. Absent: tenderness, distended, guarding - Routine Extremities Exam Present: cyanosis, pallor, extremity cold to touch. Absent: edema, pulses intact (Pulses noted by Doppler not palpable), normal capillary refill (Delayed capillary refill), tenderness, joint swelling, amputation (His very distal feet are cool to the touch) - Routine Skin Exam Present: wounds (See the description in the history and physical from yesterday about his skin exam) - Routine Neurological Exam Present: alert, oriented X3. Absent: sensory deficit, motor deficit Results - Labs Result diagrams: 09/30/17 11:50 09/30/17 11:50 Abnormal lab results 09/30/17 09/30/17 09/30/17 Range/Units 11:50 11:50 11:50 RBC 3.76 L (4.50-5.90) mil/mm3 Hgb 11.4 L (13.0-17.0) gm/dL Hct 35.1 L (39.0-51.0) % PT 15.0 H (9.8-11.6) sec Chloride 97 L (98-107) meq/L BUN 36 H (7-18) mg/dL Creatinine 9.06 H (0.60-1.30) mg/dL Estimated GFR 6 L (>89) mL/min Random Glucose 108 H (74-106) mg/dL C-Reactive Protein (0.00-0.30) mg/dL 09/30/17 Range/Units 11:50 RBC (4.50-5.90) mil/mm3 Hgb (13.0-17.0) gm/dL Hct (39.0-51.0) % PT (9.8-11.6) sec Chloride (98-107) meq/L BUN (7-18) mg/dL Creatinine (0.60-1.30) mg/dL Estimated GFR (>89) mL/min Random Glucose (74-106) mg/dL C-Reactive Protein 5.00 H (0.00-0.30) mg/dL Short CBC 09/30/17 Range/Units 11:50 WBC 8.0 (4.0-11.0) th/mm3 Hgb 11.4 L (13.0-17.0) gm/dL Hct 35.1 L (39.0-51.0) % Plt Count 186 (150-450) th/mm3 BMP 09/30/17 11:50 Sodium 136 Potassium 4.0 Chloride 97 L Carbon Dioxide 26.7 BUN 36 H Creatinine 9.06 H Calcium 8.6 - Imaging Impressions Chest X-Ray 09/30/17 00:00 CONCLUSION: New patchy infiltrate in the right perihilar and infrahilar area. Foot CT 09/30/17 00:00 CONCLUSION: 1. No acute fracture or joint dislocation. Foot X-Ray 09/30/17 11:45 CONCLUSION: Minimal irregularity along the bases of the proximal phalanges 2 through 4 to be fractures of indeterminate age. Clinical correlation as to whether patient has pain at the base of the toes. Caprini VTE Risk Assessment Caprini VTE Risk Assessment: No/Low Risk (score <= 1) Caprini Risk Assessment Model: Point Value = 1 Point Value = 2 Point Value = 3 Point Value = 5 Age 41-60 Minor surgery BMI > 25 kg/m2 Swollen legs Varicose veins or History of unexplained or recurrent spontaneous Oral contraceptives or hormone replacement Sepsis (< 1 month) Serious lung disease, including pneumonia (< 1 month) Abnormal pulmonary function Acute myocardial infarction Congestive heart failure (< 1 month) History of inflammatory bowel disease Medical patient at bed rest Age 61-74 Arthroscopic surgery Major open surgery (> 45 min) Laparoscopic surgery (> 45 min) Malignancy Confined to bed (> 72 hours) Immobilizing plaster cast Central venous access Age >= 75 History of VTE Family history of VTE Factor V Leiden Prothrombin [id number] Lupus anticoagulant Anticardiolipin antibodies Elevated serum homocysteine Heparin-induced thrombocytopenia Other congenital or acquired thrombophilia Stroke (< 1 month) Elective arthroplasty Hip, pelvis, or leg fracture Acute spinal cord injury (< 1 month) Prophylaxis Regimen: Total Risk Factor Score Risk Level Prophylaxis Regimen 0-1 Low Early ambulation 2 Moderate Order ONE of the following: *Sequential Compression Device (SCD) *Heparin 5000 units SQ BID 3-4 Higher Order ONE of the following medications: *Heparin 5000 units SQ TID *Enoxaparin/Lovenox 40 mg SQ daily (WT < 150 kg, CrCl > 30 mL/min) *Enoxaparin/Lovenox 30 mg SQ daily (WT < 150 kg, CrCl > 10-29 mL/min) *Enoxaparin/Lovenox 30 mg SQ BID (WT < 150 kg, CrCl > 30 mL/min) AND/OR *Sequential Compression Device (SCD) 5 or more Highest Order ONE of the following medications: *Heparin 5000 units SQ TID (Preferred with Epidurals) *Enoxaparin/Lovenox 40 mg SQ daily (WT < 150 kg, CrCl > 30 mL/min) *Enoxaparin/Lovenox 30 mg SQ daily (WT < 150 kg, CrCl > 10-29 mL/min) *Enoxaparin/Lovenox 30 mg SQ BID (WT < 150 kg, CrCl > 30 mL/min) AND *Sequential Compression Device (SCD) 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 Patient afebrile, VSS, White count 8.0, x-ray does not show any signs of osteomyelitis. Podiatry treat consulted, will appreciate recommendations. Vascular surgery consulted, appreciate recommendations We will obtain tissue culture via podiatry. Blood cultures ordered, follow-up. ESRCRP ordered. Increased CRP. Follow-up Follow-up CMP and CBC in a.m. Tylenol as needed for pain control. Morphine for breakthrough. Will consider Ceftriaxone and Clindamycin for coverage if Cultures come back positive for infection. (2) ESRD (end stage renal disease) Code(s): N18.6 - End stage renal disease Status: Acute Plan: Creatinine: 9.06. On dialysis but missed his dialysis appointment today. Nephrology consulted, appreciate recommendations. Please avoid any nephrotoxic drugs. (3) Hypertension Code(s): I10 - Essential (primary) hypertension Status: Acute Plan: Vital signs stable. Continue home medications Vital signs every 4. Patient currently on telemetry. EKG ordered. Follow-up. (4) Anxiety Code(s): F41.9 - Anxiety disorder, unspecified Status: Acute Plan: Continue home medications. (5) Congestive heart failure Code(s): I50.9 - Heart failure, unspecified Status: Acute Plan: Currently stable. Continue to monitor On Lasix 40 mg at home, will hold and appreciate nephrology's recommendations status post dialysis. Lasix dose is based on dialysis routine. He reports being oliguric for the past few years or at least having very little urinary output. I do not know that he carries a diagnosis of congestive heart failure but can easily become fluid overloaded as he is a dialysis patient. He is not fluid overloaded at this time. (6) Nutrition, metabolism, and development symptoms Code(s): R63.8 - Other symptoms and signs concerning food and fluid intake Status: Acute Plan: Fluids: Encourage p.o. Electrolytes: Monitor and replete as needed. Diet. Cardiac (7) DVT prophylaxis Status: Acute Plan: SCDs only. He may be going to surgery. PT/INR ordered in a.m. Follow-up. H&P: Quality - VTE Deep Vein Thrombosis/Pulmonary Embolism Present on Admission: No (3) Hypertension Qualifiers: Hypertension type: renovascular hypertension Qualified Code(s): I15.0 - Renovascular hypertension (5) Congestive heart failure Qualifiers: Heart failure type: unspecified Heart failure chronicity: chronic Qualified Code(s): I50.9 - Heart failure, unspecified
--- NOTE | 2017-10-01 11:37 | MB ---
cc: Osman Lopez DPM DATE: 10/01/2017 REASON FOR CONSULTATION: Ischemic ulcer, dry gangrene left lower extremity. HISTORY OF PRESENT ILLNESS: This is a patient known to our clinic. Dr. Connors saw the patient on Monday. The patient had a history of a worsening left third toe over approximately 3 weeks. The patient was sent to the emergency room for evaluation, admission, and likely amputation. Currently, I am seeing the patient at bedside with his family. He denies any incident or injury associated with the onset of his foot issue. He has a family member who sees Dr. Connors. Therefore, the referral was made. PAST MEDICAL HISTORY: End-stage renal disease, peripheral vascular disease, hypertension, anxiety, CHF. PAST SURGICAL HISTORY: Fistula, cardiac defibrillator in place, dialysis patient, history of cardiac catheterization. SOCIAL HISTORY: He is a former smoker. 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 ALLERGIES: NEOMYCIN. INPATIENT MEDICATIONS: 1. Vancomycin. 2. Zosyn. P.R.N. MEDICATIONS: Please see complete medication list in chart. Last dialysis was Monday. PHYSICAL EXAMINATION: VITAL SIGNS: Temperature 97, pulse rate 71, respiratory rate 14, blood pressure 98/50. He is satting 96% on room air. GENERAL: Alert and oriented gentleman seen at bedside. He appears to be slightly frail; however, he is verbally inappropriate. EXTREMITIES: Bilateral lower extremities are examined. Left lower extremity, there is noted to be dry stable gangrenous changes to the dorsal aspect of the left third digit PIPJ. Superficial abrasions noted with dry blood calluses of the bilateral hallices. Superficial abrasions noted on the right foot; however, no exposed bone or signs of gangrene. There appears to be hyperpigmentation of the skin, which may correlate with chronic rubor of the extremity. Pulses are hard to palpate. The extremities appear to be slightly warm, though. They are cool below the ankle, and there is increase in warmth as we get closer to the knee. Very thin skin is noted. The patient is capable of range of motion of the foot and ankle. Sensation appears to be intact to deep pressure only. There is decreased sensation. LABORATORY FINDINGS: White blood cell 8, hemoglobin and hematocrit 11 and 35, platelet count is 186,000. Coagulation: PT 15, INR 1.5. Chem-7: Sodium 136, potassium 4.0, chloride 97, CO2 of 26, BUN is 36, creatinine 9.06. C-reactive protein is 5. IMAGING FINDINGS: Foot x-ray: Minimal irregularity at the base of the proximal phalanx is [address] of the extremity: No acute fracture or dislocation and no mention of osteomyelitis. ASSESSMENT: Left third digit dry gangrene peripheral vascular disease. PLAN: Await vascular recommendation. Likely, the patient will need, at minimum, left third digit amputation. We will continue to follow along. There is nothing to culture. It is a dry area. It is stable. Continue empiric antibiotics and preparations for surgery. I will sign out to Dr. Connors, who will assume care starting tomorrow. YOSEPH Crews/savanah , 11:06 AM , 11:14 AM
--- NOTE | 2017-10-01 12:50 | P.CONNP ---
History of Present Illness Service: Nephrology Reason for Consult: ESRD Primary Care Provider: Lorelei Choi MD History of Present Illness: This is a 71 year old male with history of ESRD for which he is on HD TTS, under the supervision of Dr. Luis. Patient apparently injured his left middle toe about 3-4 weeks ago. He did not seek any opinion regarding this matter for several weeks, although he had noticed that the toe had become purple to black. He had developed a non healing ulcer on the toe. He also has other areas on bilateral feet: tips of first 2 toes of the right foot, and first toe of the left foot that appear ischemic ulcers. Patient went to see his breakfast server on Monday and she directed that he get admitted for evaluation by podiatry and Vascular surgeon. Patient decided to come to the ER yesterday, got admitted, missed dialysis yesterday. Today, he denies being short of breath, denies any chest pain. Review of Systems Constitutional: Reports anorexia, Reports malaise, Reports weakness, Denies night sweats Eyes: Denies change in vision Ears, Nose, Mouth, and Throat: Denies bleeding gums, Denies headache(s), Denies neck lump Cardiovascular: Denies chest pain, Denies chest pain at rest Gastrointestinal: Denies abdominal pain Musculoskeletal: Reports abnormal walking Skin/Breast: Reports skin ulcer, Reports sores PMFSH - History History Provided By: Patient, Family Member - Medical History Medical History: Medical History (Last Reviewed 10/01/17 @ 11:16 by Shreya Gould MD) Cardiac defibrillator in place Congestive heart failure Dialysis patient Fistula Hypertension Past heart attack - Surgical History Surgical History: Surgical History (Last Reviewed 10/01/17 @ 11:16 by Shreya Gould MD) Hx of cardiac cath - Family History Family History: Family History (Last Reviewed 09/30/17 @ 14:36 by Ce Dowling MD) Father Cancer Mother Cancer Sister Family history of cancer Brother Diabetes Sister Diabetes - Tobacco History Second Hand Smoke Exposure: No Tobacco Use In Past 30 Days: No Smoking Status: Former smoker Tobacco Type: Cigarettes - Alcohol History How Often Do You Have a Drink Containing Alcohol: Never - Substance Use History Substance History: No History of Abuse - Travel History Recent Travel in the [place] Within the Last 8 Weeks: No Recent Travel Out of the Country Within the Last 8 Weeks: No - Immunization History Tetanus Immunization: Unsure Hx Influenza Vaccine This Season: Yes Medications and Allergies Active Medications: Active Medications Acetaminophen (Tylenol) 650 mg PO Q4H PRN PRN Reason: Temp > 100.4 Acetaminophen (Tylenol) 650 mg PO UNSCH PRN PRN Reason: SEE LABEL COMMENTS Al Hydroxide/Mg Hydroxide (Milk Of Magnesia Liq) 30 ml PO Q12H PRN PRN Reason: Mild Constipation Bisacodyl (Dulcolax Supp) 10 mg RECTAL DAILY PRN PRN Reason: SEVERE CONSITIPATION Carvedilol (Coreg) 6.25 mg PO BID [facility] Last Admin: 10/01/17 09:19 Dose: 6.25 mg Clonidine HCl (Catapres) 0.1 mg PO UNSCH PRN PRN Reason: SEE LABEL COMMENTS Diphenhydramine HCl (Benadryl) 25 mg PO UNSCH PRN PRN Reason: SEE LABEL COMMENTS Epoetin Ford (Epogen Inj) 5,000 unit IV.PUSH UNSCH PRN PRN Reason: SEE LABEL COMMENTS Fluoxetine HCl (Prozac) 20 mg PO DAILY [facility] Last Admin: 10/01/17 09:19 Dose: 20 mg Gelatin (Gelfoam 12 Mm/7 Mm Topical) 1 foam TOPICAL PRN PRN PRN Reason: help stop bleeding from site Gentamicin Sulfate (Gentamicin Inj) 20 mg OTHER WITH DIALYSIS PRN PRN Reason: Dwell Gentamycin Lock Heparin Sodium (Porcine) (Heparin Inj) 8,000 units OTHER WITH DIALYSIS PRN PRN Reason: for machine prime Heparin Sodium (Porcine) (Heparin Inj) 1,000 units OTHER WITH DIALYSIS PRN PRN Reason: Dwell Heparin to Fill Catheter Albumin Human (Flexbumin 25% Inj) 100 mls @ 60 mls/hr IV.SIG WITH DIALYSIS PRN PRN Reason: hypotension / volume replace Sodium Chloride (Ns Inj) 1,000 mls @ 200 mls/hr OTHER .Q5H PRN PRN Reason: for dialyzer flush PRN Sodium Chloride (Ns Inj) 1,000 mls @ 0 mls/hr IV.CONT .Q0M PRN PRN Reason: hypotension / volume replace Sodium Chloride (Ns Inj) 1,000 mls @ 0 mls/hr OTHER .Q0M PRN PRN Reason: for prime and rinse back Lactulose (Lactulose Liq) 30 ml PO DAILY PRN PRN Reason: SEVERE CONSITIPATION Mannitol (Mannitol Inj) 12.5 gm IV.PUSH UNSCH PRN PRN Reason: hypotension / volume replace Morphine Sulfate (Morphine Inj) 4 mg IV.PUSH Q3H PRN PRN Reason: PAIN 6-10;IF UNABLE TO TAKE PO Last Admin: 10/01/17 09:23 Dose: 4 mg Morphine Sulfate (Morphine Inj) 2 mg IV.PUSH Q3H PRN PRN Reason: PAIN 3-5; IF UABLE TO TAKE PO Naloxone HCl (Narcan Inj) 0.4 mg IV.PUSH UNSCH PRN PRN Reason: SEE LABEL COMMENTS Nitroglycerin (Nitrostat Sl) 0.4 mg SL Q5M PRN PRN Reason: CHEST PAIN Ondansetron HCl (Zofran Inj) 4 mg IV.PUSH Q6H PRN PRN Reason: NAUSEA OR VOMITING Ondansetron HCl (Zofran Inj) 4 mg IV.PUSH UNSCH PRN PRN Reason: NAUSEA OR VOMITING Pantoprazole Sodium (Protonix) 40 mg PO DAILY [facility] Last Admin: 10/01/17 09:18 Dose: 40 mg Sennosides (Senokot) 17.2 mg PO Q12H PRN PRN Reason: Moderate Constipation Sodium Chloride (Ns Flush) 5 ml IV.FLUSH PRN PRN PRN Reason: flush each lumen during HD Temazepam (Restoril) 15 mg PO HS PRN PRN Reason: INSOMNIA Allergies Allergy/AdvReac Type Severity Reaction Status Date / Time neomycin Allergy Severe Unverified 10/04/16 23:37 Home Medications Medication Instructions Recorded Confirmed Type carvedilol 6.25 mg PO BID 09/30/17 09/30/17 History fluoxetine 20 mg PO DAILY 09/30/17 09/30/17 History folic acid 1 mg PO DAILY 09/30/17 09/30/17 History furosemide 20 mg PO DAILY 09/30/17 09/30/17 History isosorbide mononitrate 30 mg PO DAILY 09/30/17 09/30/17 History mirtazapine 15 mg PO DAILY 09/30/17 09/30/17 History pantoprazole 40 mg PO DAILY 09/30/17 09/30/17 History vit B comp no.5-ilhlo-M-biotin 1 tab PO DAILY 09/30/17 09/30/17 History [[facility] Rx] warfarin 5 mg PO DAILY 09/30/17 09/30/17 History Exam Vital signs: Vital Signs 09/30/17 12:50 09/30/17 13:50 09/30/17 15:59 Temperature Pulse Rate 69 72 74 Respiratory Rate 18 17 18 Blood Pressure 98/52 L 107/53 L 121/57 L Pulse Oximetry 96 94 L 96 09/30/17 18:16 09/30/17 20:44 09/30/17 23:54 Temperature 97.7 F 97.4 F L Pulse Rate 76 70 69 Respiratory Rate 18 18 18 Blood Pressure 120/56 L 105/54 L 95/51 L Pulse Oximetry 96 95 97 10/01/17 02:00 10/01/17 03:32 10/01/17 08:00 Temperature 97.3 F L 97.5 F L Pulse Rate 72 71 Respiratory Rate 16 18 14 Blood Pressure 110/60 98/50 L Pulse Oximetry 95 96 10/01/17 09:17 Temperature Pulse Rate 75 Respiratory Rate Blood Pressure 135/61 Pulse Oximetry Intake & Output 09/30/17 10/01/17 10/01/17 18:59 06:59 18:59 Intake Total 362.5 / 362.5 480 / 480 Balance 362.5 / 362.5 480 / 480 Weight 77 kg 79.3 kg Intake: IV 362.5 / 362.5 Zosyn 4.5 GM Premix 4.5 gm In 100 / 100 100 ml @ 200 mls/hr IV.SIG ONCE ONE Rx#:[id number] Vancomycin Inj 1,250 MG In NS 262.5 / 262.5 Inj 250 ML @ 250 mls/hr IV.SIG ONCE ONE Rx#:[id number] Oral 480 / 480 Other: # Voids 0 Date of Last Bowel Movement 09/29/17 09/29/17 # Bowel Movements 0 Weight On Admission 79.379 kg Narrative: GENERAL: Frail appearing elderly male, not in distress. SKIN: Warm and dry. HEAD: Normocephalic. EYES: No scleral icterus. No injection or drainage. NECK: Supple, trachea midline. No JVD or lymphadenopathy. CARDIOVASCULAR: Regular rate and rhythm, 2/6 systolic murmur. RESPIRATORY: Breath sounds equal bilaterally. No accessory muscle use. Crackles heard bilaterally. GASTROINTESTINAL: Abdomen soft, non-tender, nondistended. EXTREMITIES: left middle toe: ulcer on the dorsal aspect. Ischemic ulcers on left first toe, and 1st and 2nd toes of the right foot. DP pulses not felt. Patent AVF left upper extremity. NEUROLOGICAL: Awake, alert, and oriented x 3. - Constitutional diaphoretic Results - Lab Results 09/30/17 11:50 09/30/17 11:50 Most recent lab results Calcium 8.6 mg/dL (8.5-10.1) 09/30/17 11:50 Assessment and Plan - Assessment (1) ESRD (end stage renal disease) Code(s): N18.6 - End stage renal disease Status: Acute Plan: usually dialyzes TTS, but since he missed dialysis yesterday, I will dialyze him today. Monitor fluid and electrolytes. Avoid excessive IVF, but if he is NPO , start D10NS at 20 ml/hour. Avoid Gadolinium. High protein diet. Low potassium and phosphorus diet. Protect left upper extremity from IV and BP measurements. Monitor labs including phosphorus intermittently. Use binders if and when appropriate. (2) Congestive heart failure Code(s): I50.9 - Heart failure, unspecified Status: Acute Plan: s/p AICD placement. EF apparently around 25%. Fluid management with dialysis. Dietary fluid restriction. Avoid excessive IVF administration. 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 He is on Warfarin and so cholesterol embolization is a consideration. Vascular surgery on the case, CT aortogram with runoff may be planned. Podiatry consult. (4) Hypertension Code(s): I10 - Essential (primary) hypertension Status: Acute Plan: BP is often low, monitor. He is on Carvedilol, which may need to be suspended. (5) Anemia Code(s): D64.9 - Anemia, unspecified Status: Acute Plan: Hemoglobin is acceptable, Epogen with dialysis. - Attending Attestation Thanks for the consult. (2) Congestive heart failure Qualifiers: Heart failure type: unspecified Heart failure chronicity: chronic Qualified Code(s): I50.9 - Heart failure, unspecified (4) Hypertension Qualifiers: Hypertension type: renovascular hypertension Qualified Code(s): I15.0 - Renovascular hypertension
--- NOTE | 2017-10-01 19:03 | MB ---
cc: Sathish Hale MD DATE: 10/01/2017 REASON FOR CONSULTATION: Ischemia of both legs, left more than right. HISTORY OF PRESENT ILLNESS: A 71-year-old male with a complex past medical history who presents to the emergency room with necrotic second and third toes of the left foot and also some ischemic changes in the rest of the toes. He said he stubbed a toe about a month ago and it started getting black and much worse, now with redness streaking up his foot. The patient was seen by Dr. Connors and she sent him to the emergency room. The patient is now admitted and further workup is pending. PAST MEDICAL HISTORY: Hypertension, end-stage renal failure, congestive heart failure, sick sinus syndrome, myocardial infarction. PAST SURGICAL HISTORY: Cardiac catheterization, no stents placed, as well as a defibrillator placement. SOCIAL HISTORY: The patient used to smoke heavily, stopped. MEDICATIONS: Can be found in the record. PHYSICAL EXAMINATION: GENERAL: Reveals a 71-year-old gentleman. HEENT: Normocephalic. No trauma to the head. Pupils equal, reactive. Extraocular muscles intact. NECK: Bilateral carotid pulses and bilateral carotid bruits of 2/6 to 3/6. The patient has a lipoma of the left side of the neck. CHEST: Bilateral breath sounds, decreased though in both lung burnett consistent with a moderate degree of COPD and pulmonary cachexia. HEART: Regular rhythm. The patient has a pacer defibrillator in the subclavian position. ABDOMEN: Soft. Active bowel sounds. No rebound or guarding. No masses. EXTREMITIES: The patient has no femoral, popliteal, dorsalis pedis or posterior tibial pulses on palpation. He has weak femoral pulses on Doppler. On the left side, I do not perceive a popliteal pulse at all, while the right side is weak, and then the dorsalis pedis and posterior tibial are very weak in both feet. The patient has cyanosis of both legs with gangrenous changes the of above-noted left third toe; however, there are incipient gangrenous changes of the other toes as well. NEUROLOGIC: The patient is grossly intact. IMPRESSION: A patient with severe peripheral vascular disease, a combination of inflow and outflow disease with gangrene of the toes and signs of limb-threatening ischemia. This is very advanced disease. The patient will undergo a CTA with runoff and we will see what we can fix here by open vascular reconstruction or endovascular procedure. The patient is a high chance of losing his left foot. I thank you very much for the referral. MD ETHEL Patel/wilfredo , 04:08 PM , 04:18 PM
[2017-10-01 20:35] LABS: Baso # (Auto) 0.1 th/mm3 (0.0-0.2); Baso % (Auto) 0.8 % (0.0-2.0); Eos # (Auto) 0.2 th/mm3 (0.0-0.4); Eos % (Auto) 3.1 % (0.0-4.0); Hematocrit 35.9 % (39.0-51.0); Hemoglobin 11.7 gm/dL (13.0-17.0); Lymph % (Auto) 13.5 % (9.0-44.0); Mean Corpuscular HGB Conc 32.5 % (32.0-36.0); Mean Corpuscular Hemoglobin 30.4 pg (27.0-34.0); Mean Corpuscular Volume 93.5 fL (80.0-100.0); Mean Platelet Volume 8.9 fL (7.0-11.0); Mono # (Auto) 0.6 th/mm3 (0.0-0.9); Mono % (Auto) 7.8 % (0.0-8.0); Neut # (Auto) 5.5 th/mm3 (1.8-7.7); Neut % (Auto) 74.8 % (16.0-70.0); Platelet Count 161 th/mm3 (150-450); Red Blood Count 3.84 mil/mm3 (4.50-5.90); Red Cell Distribution Width 16.5 % (11.6-17.2); White Blood Count 7.3 th/mm3 (4.0-11.0)
[2017-10-01 20:43] LABS: INR 1.7 Ratio; Prothrombin Time 17.4 sec (9.8-11.6)
[2017-10-01 21:03] LABS: Alanine Aminotransferase 17 U/L (12-78); Alkaline Phosphatase 121 U/L (45-117); Anion Gap 11 meq/L (5-15); Aspartate Aminotransferase 19 U/L (15-37); Blood Urea Nitrogen 20 mg/dL (7-18); Calcium 8.3 mg/dL (8.5-10.1); Carbon Dioxide 30.5 meq/L (21.0-32.0); Chloride 97 meq/L (98-107); Glomerular Filtration Rate 9 mL/min (>89); Glucose,Random 106 mg/dL (74-106); Potassium 4.1 meq/L (3.5-5.1); Sodium 138 meq/L (136-145); Total Protein 7.7 g/dL (6.4-8.2)
[2017-10-01 21:20] LABS: Erythrocyte Sedimentation Rate 50 mm/hr (0-20)
[2017-10-02 07:13] LABS: Baso # (Auto) 0.1 th/mm3 (0.0-0.2); Eos # (Auto) 0.2 th/mm3 (0.0-0.4); Eos % (Auto) 3.3 % (0.0-4.0); Hematocrit 33.5 % (39.0-51.0); Hemoglobin 11.2 gm/dL (13.0-17.0); Lymph # (Auto) 1.3 th/mm3 (1.0-4.8); Mean Corpuscular HGB Conc 33.5 % (32.0-36.0); Mean Corpuscular Hemoglobin 30.5 pg (27.0-34.0); Mean Corpuscular Volume 91.2 fL (80.0-100.0); Mean Platelet Volume 8.8 fL (7.0-11.0); Mono # (Auto) 0.6 th/mm3 (0.0-0.9); Mono % (Auto) 8.3 % (0.0-8.0); Neut # (Auto) 4.5 th/mm3 (1.8-7.7); Neut % (Auto) 67.4 % (16.0-70.0); Platelet Count 152 th/mm3 (150-450); Red Blood Count 3.67 mil/mm3 (4.50-5.90); Red Cell Distribution Width 16.5 % (11.6-17.2); White Blood Count 6.6 th/mm3 (4.0-11.0)
[2017-10-02 07:29] LABS: Albumin 2.8 g/dL (3.4-5.0); Calcium 8.5 mg/dL (8.5-10.1); Carbon Dioxide 30.4 meq/L (21.0-32.0); Phosphorus 6.1 mg/dL (2.5-4.9); Potassium 4.3 meq/L (3.5-5.1)
[2017-10-02] MEDS: FLUoxetine 20 MG Capsule PO SCH (09:48)
[2017-10-02] MEDS: Carvedilol 6.25 MG Tablet PO SCH ×2 (09:48→21:38)
--- NOTE | 2017-10-02 10:22 | P.PNNP ---
Physical Exam Vital signs: Vital Signs 10/01/17 16:00 10/01/17 19:00 10/01/17 20:00 Temperature 97.6 F 97.5 F L Pulse Rate 80 85 Respiratory Rate 15 18 Blood Pressure 114/56 L 119/58 L Pulse Oximetry 97 96 97 10/01/17 23:02 10/02/17 01:30 10/02/17 05:00 Temperature 98.0 F 98.3 F Pulse Rate 82 72 Respiratory Rate 18 16 18 Blood Pressure 113/58 L 118/54 L Pulse Oximetry 97 95 10/02/17 08:00 10/02/17 09:19 Temperature 97.5 F L Pulse Rate 80 Respiratory Rate 18 Blood Pressure 117/56 L Pulse Oximetry 97 92 L Intake & Output 10/01/17 10/02/17 10/02/17 18:59 06:59 18:59 Intake Total 250 / 250 360 / 360 Output Total 1999 Balance -1750 / -1750 360 / 360 Weight 79.3 kg Intake: Oral 250 / 250 360 / 360 Output: Hemodialysis Amount 1999 Other: # Voids 0 Date of Last Bowel Movement 09/29/17 09/29/17 # Bowel Movements 0 Assessment and Plan - Assessment (1) ESRD (end stage renal disease) Code(s): N18.6 - End stage renal disease Status: Acute Plan: usually dialyzes TTS, but since he missed dialysis yesterday, I will dialyze him today. Monitor fluid and electrolytes. Avoid excessive IVF, but if he is NPO , start D10NS at 20 ml/hour. Avoid Gadolinium. High protein diet. Low potassium and phosphorus diet. Protect left upper extremity from IV and BP measurements. Monitor labs including phosphorus intermittently. Use binders if and when appropriate. (2) Congestive heart failure Code(s): I50.9 - Heart failure, unspecified Status: Acute Qualifiers: Heart failure type: unspecified Heart failure chronicity: chronic Qualified Code(s): I50.9 - Heart failure, unspecified Plan: s/p AICD placement. EF apparently around 25%. Fluid management with dialysis. Dietary fluid restriction. Avoid excessive IVF administration. 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 He is on Warfarin and so cholesterol embolization is a consideration. Vascular surgery on the case, CT aortogram with runoff may be planned. Podiatry consult. (4) Hypertension Code(s): I10 - Essential (primary) hypertension Status: Acute Qualifiers: Hypertension type: renovascular hypertension Qualified Code(s): I15.0 - Renovascular hypertension Plan: BP is often low, monitor. He is on Carvedilol, which may need to be suspended. (5) Anemia Code(s): D64.9 - Anemia, unspecified Status: Acute Plan: Hemoglobin is acceptable, Epogen with dialysis.
--- NOTE | 2017-10-02 12:57 | CT ---
EXAM DATE: 10/02/2017 12:32 PM EDT AGE/SEX: 71 years / Male INDICATIONS: Peripheral vascular disease both legs. Gangrene toe. CLINICAL DATA: This is the patient's initial encounter. Patient reports that signs and symptoms have been present for 1 day and indicates a pain score of 3/10. MEDICAL/SURGICAL HISTORY: Osteomyelitis. Congestive heart failure. Deep venous thrombosis. Hyper tension, ulcer, anemia, dialysis. Defibrillator. RADIATION DOSE: 2.35 CTDI (mGy) COMPARISON: [facility] – [place], CHEST 2V PA&LAT, 09/30/2017. . TECHNIQUE: Volumetric scanning was performed using a multi-row detector CT scanner during bolus infu brenda of 100 ml Omnipaque 350 (iohexol) nonionic water-soluble contrast as a single exam dose. The data was post processed with a variety of visualization algorithms including full volume maximum inte nsity projection, multi-planar sliding thin slab reformation, curved planar reformation, and surface rendering techniques. Using automated exposure control and adjustment of the mA and/or kV according to patient size, radiation dose was kept as low as reasonably achievable to obtain optimal diagnostic quality images. DICOM format image data is available electronically for review and comparison. FINDINGS: Angiographic Findings: Abdominal Aorta: Diffuse atherosclerotic calcifications without significant focal flow-limiting sten osis or aneurysm. Renal Arteries: Kidneys are end-stage with small diminutive caliber renal arteries bilaterally. Mesenteric Arteries: Moderate stenosis of the celiac origin. SMA is patent. CAITLIN is patent. Right side: Inflow: Diffusely calcified iliac arteries with tandem mild stenoses in the proximal common iliac art shawn and proximal external iliac artery. Internal iliac artery is patent but diffusely diseased. Commo n femoral arteries diffusely calcified but patent. Outflow: The profunda is patent. SFA is diffusely calcified with focal moderate to severe stenosis in the distal thigh. Popliteal artery is diffusely calcified but patent. Runoff: Severely diseased and diffusely calcified tibial arteries. There are multiple focal occlusion s/severe stenoses of the anterior and posterior tibial arteries throughout the calf. Overall, evaluat ion is significantly limited by the degree of vessel calcification. Left side: Inflow: Diffusely calcified iliac arteries without significant flow-limiting stenosis. Internal iliac artery is patent but diffusely diseased. Common femoral artery is diffusely calcified but patent. Outflow: The profunda is patent. SFA is diffusely calcified with tandem mild stenoses in the proximal to mid thigh. Focal moderate stenosis in the distal thigh near the abductor canal. Popliteal artery is diffusely calcified but patent. Runoff: Severely diseased and diffusely calcified tibial arteries. There are multiple focal occlusion s/severe stenoses of the anterior and posterior tibial arteries throughout the calf. Overall, evaluat ion is significantly limited by the degree of vessel calcification. General Findings: LOWER LUNGS: Very trace left pleural effusion. LIVER: Slightly nodular appearance of the liver suggesting volume loss. Liver is otherwise grossly u nremarkable. Layering dense material in the gallbladder likely reflects small gallstones. SPLEEN: Homogeneous density without enlargement. PANCREAS: Grossly unremarkable. KIDNEYS: Kidneys are small in size and end-stage in appearance. No hydronephrosis. ADRENAL GLANDS: Unremarkable. BOWEL/MESENTERY: Mild sigmoid diverticulosis. Bowel otherwise appears grossly unremarkable. No signi ficant free fluid or drainable fluid collections. ABDOMINAL WALL: Intact. RETROPERITONEUM: No evidence of adenopathy in the retrocrural, para-aortic, or deep pelvic regions. BLADDER: Largely decompressed. REPRODUCTIVE: No abnormal masses or calcifications seen. INGUINAL: The inguinal region is unremarkable without evidence of adenopathy. Dense coronary calcifi cation. BONY STRUCTURES: Degenerative changes of the lumbar spine. CONCLUSION: 1. Severe diffuse arterial atherosclerotic calcifications with no significant aortic or iliac inflow stenosis. 2. Moderate to severe focal stenosis of the right SFA in the distal thigh. 3. Focal moderate stenosis of the left SFA in the distal thigh. 4. Severely diseased and diffusely calcified tibial arteries precluding definitive evaluation. Howev er, there appeared to be multiple tandem severe stenoses/occlusions in the tibial arteries bilaterall y. Patient's symptoms are therefore primarily due to runoff disease. 5. Nodular appearance of the liver consistent with cirrhosis. 6. Very trace left pleural effusion. 7. Cholelithiasis. 8. Sigmoid diverticulosis. Electronically signed by: Jon Chinchilla MD 10/02/2017 12:56 PM EDT
--- NOTE | 2017-10-02 14:40 | P.PNVS ---
Subjective Subjective/Hospital Course: 09/30/2017 Referral received Full vascular consult to follow Abhinav J 10/02/2017 Patient with severe peripheral vascular disease good inflow and poor outflow into both legs with necrotic left third toe CTA with a runoff confirms the clinical impression. Patient has good inflow with known hemodynamically significant stenosis in the iliac vessels and common femoral arteries. He has bilateral tight stenosis of superficial femoral artery in the adductor canal which progresses into severely calcified anterior and posterior tibial arteries which sort of Peter off throughout the lower leg toward the foot. All in all patient has severe peripheral vascular disease consistent with diabetes mellitus involving small vessels below the level of trifurcation and stenosis of the level of SFA bilateral. His blood floor at this point as well as the pathology is dependent on the poor flow and occlusion of the anterior and posterior tibial arteries. Nonetheless we will evaluate for possible balloon dilatation of SFAs in interventional suit to at least somewhat improved distal inflow. Objective Vital Signs / I&O: Vital Signs 10/01/17 16:00 10/01/17 19:00 10/01/17 20:00 Temperature 97.6 F 97.5 F L Pulse Rate 80 85 Respiratory Rate 15 18 Blood Pressure 114/56 L 119/58 L Pulse Oximetry 97 96 97 10/01/17 23:02 10/02/17 01:30 10/02/17 05:00 Temperature 98.0 F 98.3 F Pulse Rate 82 72 Respiratory Rate 18 16 18 Blood Pressure 113/58 L 118/54 L Pulse Oximetry 97 95 10/02/17 08:00 10/02/17 09:19 10/02/17 12:00 Temperature 97.5 F L 97.6 F Pulse Rate 80 72 Respiratory Rate 18 20 Blood Pressure 117/56 L 110/53 L Pulse Oximetry 97 92 L 95 Intake & Output 10/01/17 10/02/17 10/02/17 18:59 06:59 18:59 Intake Total 250 / 250 360 / 360 Output Total 1999 Balance -1750 / -1750 360 / 360 Weight 79.3 kg Intake: Oral 250 / 250 360 / 360 Output: Hemodialysis Amount 1999 Other: # Voids 0 Date of Last Bowel Movement 09/29/17 09/29/17 # Bowel Movements 0 Laboratory Results - last 24 hr 10/01/17 10/01/17 10/01/17 19:36 19:36 19:36 WBC 7.3 RBC 3.84 L Hgb 11.7 L Hct 35.9 L MCV 93.5 MCH 30.4 MCHC 32.5 RDW 16.5 Plt Count 161 MPV 8.9 Neut % (Auto) 74.8 H Lymph % (Auto) 13.5 [place] % (Auto) 7.8 Eos % (Auto) 3.1 Baso % (Auto) 0.8 Neut # (Auto) 5.5 Lymph # (Auto) 1.0 [place] # (Auto) 0.6 Eos # (Auto) 0.2 Baso # (Auto) 0.1 WBC Differential . Differential Comment Auto diff final ESR 50 H PT 17.4 H INR 1.7 Sodium 138 Potassium 4.1 Chloride 97 L Carbon Dioxide 30.5 Anion Gap 11 BUN 20 H Creatinine 6.06 H Estimated GFR 9 L Random Glucose 106 Calcium 8.3 L Phosphorus Total Bilirubin 0.6 AST 19 ALT 17 Alkaline Phosphatase 121 H Total Protein 7.7 Albumin 3.0 L 10/02/17 10/02/17 06:34 06:34 WBC 6.6 RBC 3.67 L Hgb 11.2 L Hct 33.5 L MCV 91.2 MCH 30.5 MCHC 33.5 RDW 16.5 Plt Count 152 MPV 8.8 Neut % (Auto) 67.4 Lymph % (Auto) 20.0 [place] % (Auto) 8.3 H Eos % (Auto) 3.3 Baso % (Auto) 1.0 Neut # (Auto) 4.5 Lymph # (Auto) 1.3 [place] # (Auto) 0.6 Eos # (Auto) 0.2 Baso # (Auto) 0.1 WBC Differential . Differential Comment Auto diff final ESR PT INR Sodium 137 Potassium 4.3 Chloride 96 L Carbon Dioxide 30.4 Anion Gap 11 BUN 24 H Creatinine 6.92 H Estimated GFR 8 L Random Glucose 83 Calcium 8.5 Phosphorus 6.1 H Total Bilirubin AST ALT Alkaline Phosphatase Total Protein Albumin 2.8 L Microbiology 09/30/17 15:00 Aerobic Blood Culture - Preliminary Blood - Peripheral No growth in 2 days Anaerobic Blood Culture - Preliminary No growth in 2 days 09/30/17 15:12 Aerobic Blood Culture - Preliminary Blood - Peripheral No growth in 2 days Anaerobic Blood Culture - Preliminary No growth in 2 days Impressions Chest X-Ray 09/30/17 00:00 CONCLUSION: New patchy infiltrate in the right perihilar and infrahilar area. Foot CT 09/30/17 00:00 CONCLUSION: 1. No acute fracture or joint dislocation. Aorta w/Runoff CTA 10/02/17 00:00 CONCLUSION: 1. Severe diffuse arterial atherosclerotic calcifications with no significant aortic or iliac inflow stenosis. 2. Moderate to severe focal stenosis of the right SFA in the distal thigh. 3. Focal moderate stenosis of the left SFA in the distal thigh. 4. Severely diseased and diffusely calcified tibial arteries precluding definitive evaluation. However, there appeared to be multiple tandem severe stenoses/occlusions in the tibial arteries bilaterally. Patient's symptoms are therefore primarily due to runoff disease. 5. Nodular appearance of the liver consistent with cirrhosis. 6. Very trace left pleural effusion. 7. Cholelithiasis. 8. Sigmoid diverticulosis.
--- NOTE | 2017-10-02 14:43 | P.PNNP ---
Subjective Interval history: Mr. Hoang is a 71-year-old gentleman with ESRD on dialysis 3 days a week who was admitted because of left middle toe injury a month ago with increasing redness and pain and development of a nonhealing ulcer, patient has been followed by podiatry Patient denies nausea, vomiting, diarrhea, fever, chills chest pain and dyspnea REVIEW OF SYSTEMS: GENERAL: POSITIVE for fatigue. Eyes: Negative for eye pain. ENT: Negative for earache RESP: Negative for cough. CV: negative for chest pain. GI: Negative for abdominal pain. -MALE:Negative for hematuria Musculoskeletal: POSITIVE for joint pain BACK: No Pain SKIN: POSITIVE for rash. NEURO: Negative for seizures. PSYCHE: Negative for depression. Lymph: No Lymph node enlargement Physical Exam Vital signs: Vital Signs 10/01/17 16:00 10/01/17 19:00 10/01/17 20:00 Temperature 97.6 F 97.5 F L Pulse Rate 80 85 Respiratory Rate 15 18 Blood Pressure 114/56 L 119/58 L Pulse Oximetry 97 96 97 10/01/17 23:02 10/02/17 01:30 10/02/17 05:00 Temperature 98.0 F 98.3 F Pulse Rate 82 72 Respiratory Rate 18 16 18 Blood Pressure 113/58 L 118/54 L Pulse Oximetry 97 95 10/02/17 08:00 10/02/17 09:19 10/02/17 12:00 Temperature 97.5 F L 97.6 F Pulse Rate 80 72 Respiratory Rate 18 20 Blood Pressure 117/56 L 110/53 L Pulse Oximetry 97 92 L 95 Intake & Output 10/01/17 10/02/17 10/02/17 18:59 06:59 18:59 Intake Total 250 / 250 360 / 360 Output Total 1999 Balance -1750 / -1750 360 / 360 Weight 79.3 kg Intake: Oral 250 / 250 360 / 360 Output: Hemodialysis Amount 1999 Other: # Voids 0 Date of Last Bowel Movement 09/29/17 09/29/17 # Bowel Movements 0 Narrative: Examination : GENERAL APPEARANCE: in no acute distress. HEENT:: normocephalic, atraumatic NECK :no cervical lymphadenopathy. ORAL CAVITY: mucosa moist. CHEST:normal SKIN: no suspicious lesions. HEART: no murmurs. LUNGS: clear to auscultation bilaterally. BREASTS: not examined. ABDOMEN: soft, nontender. BACK: No paraspinal muscle spasm. MALE GENITOURINARY: not examined. MUSCULOSKELETAL: normal. EXTREMITIES: Absent edema FOOT EXAM : Left middle toe ulcer on the dorsal aspect with erythema and nonpalpable pulses PERIPHERAL PULSES: normal. NEUROLOGIC: nonfocal. PSYCH: normal. 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 Code(s): L97.904 - Non-pressure chronic ulcer of unspecified part of unspecified lower leg with necrosis of bone Status: Acute Plan: Defer to hospitalist/primary care team (2) ESRD (end stage renal disease) Code(s): N18.6 - End stage renal disease Status: Acute Plan: #: N18.6 :ESRD-Standard care for ESRD patient --Periodic dialysis based on clinical symptoms laboratory results and volume status --with adequacy monitoring --as well as monitoring for anemia, nutrition, bone disease, blood pressure control, --monitor access adequacy, and complications (3) Hypertension Code(s): I10 - Essential (primary) hypertension Status: Acute Qualifiers: Hypertension type: renovascular hypertension Qualified Code(s): I15.0 - Renovascular hypertension Plan: # : Continue current care and monitor (4) Anxiety Code(s): F41.9 - Anxiety disorder, unspecified Status: Acute Plan: Defer to hospitalist/primary care team
[2017-10-02] MEDS: Morphine Inj 4 MG/ML Vial IV.PUSH PRN ×2 (15:04→21:36)
--- NOTE | 2017-10-02 17:25 | P.PNFP ---
Subjective Interval history: PT seen this morning with attending physician and senior resident. Pt is doing well, no acute events overnight. He is not complaining of any pain. Pt went to dialysis yesterday. Future test explained to him, he voiced understanding. He denies shortness of breath, chest pain, abdominal pain, nausea, vomiting, fevers or chills. <Cathy Germain V - 10/02/17 17:25> Results - Labs Result diagrams: 10/04/17 07:55 10/04/17 07:55 <Shreya Gould M - 10/04/17 16:21> Abnormal lab results 10/03/17 10/04/17 10/04/17 Range/Units 19:47 07:55 07:55 RBC 3.48 L 3.67 L (4.50-5.90) mil/mm3 Hgb 10.8 L 11.2 L (13.0-17.0) gm/dL Hct 32.2 L 34.6 L (39.0-51.0) % Plt Count 145 L (150-450) th/mm3 Neut % (Auto) 74.0 H 70.5 H (16.0-70.0) % [place] % (Auto) 8.6 H (0.0-8.0) % Sodium 131 L (136-145) meq/L Chloride 94 L (98-107) meq/L BUN 24 H (7-18) mg/dL Creatinine 6.39 H (0.60-1.30) mg/dL Estimated GFR 9 L (>89) mL/min Random Glucose 166 H (74-106) mg/dL Calcium 8.4 L (8.5-10.1) mg/dL Albumin 2.7 L (3.4-5.0) g/dL Short CBC 10/03/17 10/04/17 Range/Units 19:47 07:55 WBC 6.9 6.7 (4.0-11.0) th/mm3 Hgb 10.8 L 11.2 L (13.0-17.0) gm/dL Hct 32.2 L 34.6 L (39.0-51.0) % Plt Count 153 145 L (150-450) th/mm3 BMP 10/04/17 07:55 Sodium 131 L Potassium 4.1 D Chloride 94 L Carbon Dioxide 24.9 BUN 24 H Creatinine 6.39 H Calcium 8.4 L Liver Function 10/04/17 Range/Units 07:55 Total Bilirubin 0.6 (0.2-1.0) mg/dL AST 25 (15-37) U/L ALT 14 (12-78) U/L Alkaline Phosphatase 112 (45-117) U/L Albumin 2.7 L (3.4-5.0) g/dL <Shreya Gould - 10/04/17 16:21> Abnormal lab results 10/01/17 10/01/17 10/01/17 Range/Units 19:36 19:36 19:36 RBC 3.84 L (4.50-5.90) mil/mm3 Hgb 11.7 L (13.0-17.0) gm/dL Hct 35.9 L (39.0-51.0) % Neut % (Auto) 74.8 H (16.0-70.0) % [place] % (Auto) (0.0-8.0) % ESR 50 H (0-20) mm/hr PT 17.4 H (9.8-11.6) sec Chloride 97 L (98-107) meq/L BUN 20 H (7-18) mg/dL Creatinine 6.06 H (0.60-1.30) mg/dL Estimated GFR 9 L (>89) mL/min Calcium 8.3 L (8.5-10.1) mg/dL Phosphorus (2.5-4.9) mg/dL Alkaline Phosphatase 121 H (45-117) U/L Albumin 3.0 L (3.4-5.0) g/dL 10/02/17 10/02/17 Range/Units 06:34 06:34 RBC 3.67 L (4.50-5.90) mil/mm3 Hgb 11.2 L (13.0-17.0) gm/dL Hct 33.5 L (39.0-51.0) % Neut % (Auto) (16.0-70.0) % [place] % (Auto) 8.3 H (0.0-8.0) % ESR (0-20) mm/hr PT (9.8-11.6) sec Chloride 96 L (98-107) meq/L BUN 24 H (7-18) mg/dL Creatinine 6.92 H (0.60-1.30) mg/dL Estimated GFR 8 L (>89) mL/min Calcium (8.5-10.1) mg/dL Phosphorus 6.1 H (2.5-4.9) mg/dL Alkaline Phosphatase (45-117) U/L Albumin 2.8 L (3.4-5.0) g/dL Short CBC 10/01/17 10/02/17 Range/Units 19:36 06:34 WBC 7.3 6.6 (4.0-11.0) th/mm3 Hgb 11.7 L 11.2 L (13.0-17.0) gm/dL Hct 35.9 L 33.5 L (39.0-51.0) % Plt Count 161 152 (150-450) th/mm3 BMP 10/01/17 10/02/17 19:36 06:34 Sodium 138 137 Potassium 4.1 4.3 Chloride 97 L 96 L Carbon Dioxide 30.5 30.4 BUN 20 H 24 H Creatinine 6.06 H 6.92 H Calcium 8.3 L 8.5 Liver Function 10/01/17 10/02/17 Range/Units 19:36 06:34 Total Bilirubin 0.6 (0.2-1.0) mg/dL AST 19 (15-37) U/L ALT 17 (12-78) U/L Alkaline Phosphatase 121 H (45-117) U/L Albumin 3.0 L 2.8 L (3.4-5.0) g/dL <Cathy Germain V - 10/02/17 17:25> - Imaging Impressions Aorta w/Runoff CTA 10/02/17 00:00 CONCLUSION: 1. Severe diffuse arterial atherosclerotic calcifications with no significant aortic or iliac inflow stenosis. 2. Moderate to severe focal stenosis of the right SFA in the distal thigh. 3. Focal moderate stenosis of the left SFA in the distal thigh. 4. Severely diseased and diffusely calcified tibial arteries precluding definitive evaluation. However, there appeared to be multiple tandem severe stenoses/occlusions in the tibial arteries bilaterally. Patient's symptoms are therefore primarily due to runoff disease. 5. Nodular appearance of the liver consistent with cirrhosis. 6. Very trace left pleural effusion. 7. Cholelithiasis. 8. Sigmoid diverticulosis. <Cathy Germain V - 10/02/17 17:25> Physical Exam Vital signs: Vital Signs 10/03/17 16:30 10/03/17 22:48 10/04/17 08:00 Temperature 97.7 F 97.1 F L Pulse Rate 68 63 Respiratory Rate 16 18 18 Blood Pressure 98/65 L 83/49 L 105/52 L Pulse Oximetry 95 99 10/04/17 10:48 10/04/17 11:47 10/04/17 12:49 Temperature 98.7 F 97.2 F L Pulse Rate 60 60 Respiratory Rate 14 18 Blood Pressure 90/53 L 97/52 L Pulse Oximetry 99 99 Intake & Output 10/03/17 10/04/17 10/04/17 18:59 06:59 18:59 Intake Total 480 / 480 Output Total 2500 / 2500 Balance -2500 / -2500 480 / 480 Intake: Oral 480 / 480 Output: Hemodialysis Amount 2500 / 2500 Other: # Voids 2 <Shreya Gould M - 10/04/17 16:21> Vital Signs 10/01/17 19:00 10/01/17 20:00 10/01/17 23:02 Temperature 97.5 F L 98.0 F Pulse Rate 85 82 Respiratory Rate 18 18 Blood Pressure 119/58 L 113/58 L Pulse Oximetry 96 97 97 10/02/17 01:30 10/02/17 05:00 10/02/17 08:00 Temperature 98.3 F 97.5 F L Pulse Rate 72 80 Respiratory Rate 16 18 18 Blood Pressure 118/54 L 117/56 L Pulse Oximetry 95 97 10/02/17 09:19 10/02/17 12:00 Temperature 97.6 F Pulse Rate 72 Respiratory Rate 20 Blood Pressure 110/53 L Pulse Oximetry 92 L 95 Intake & Output 10/01/17 10/02/17 10/02/17 18:59 06:59 18:59 Intake Total 250 / 250 360 / 360 Output Total 1999 Balance -1750 / -1750 360 / 360 Weight 79.3 kg Intake: Oral 250 / 250 360 / 360 Output: Hemodialysis Amount 1999 Other: # Voids 0 Date of Last Bowel Movement 09/29/17 09/29/17 # Bowel Movements 0 <Cathy Germain V - 10/02/17 17:25> Narrative: Examination : GENERAL APPEARANCE: in no acute distress. 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 No painful. ORAL CAVITY: mucosa moist. SKIN: no suspicious lesions. Other than noted on foot exam below. HEART: RRR, S1/S2, LUNGS: clear to auscultation bilaterally. Regular breathing, no accessory muscle use. BREASTS: not examined. ABDOMEN: soft, nontender. + BS, no masses MALE GENITOURINARY: not examined. EXTREMITIES: Absent edema, non palpable pulses FOOT EXAM : Left middle toe ulcer on the dorsal aspect with erythema and nonpalpable pulses. Necrotic in appearance. Several lesions on multiple toes bilaterally. <Cathy Germain V - 10/02/17 17:25> 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 Code(s): L97.904 - Non-pressure chronic ulcer of unspecified part of unspecified lower leg with necrosis of bone Status: Acute (2) ESRD (end stage renal disease) Code(s): N18.6 - End stage renal disease Status: Chronic (3) Hypertension Code(s): I10 - Essential (primary) hypertension Status: Chronic (4) Anxiety Code(s): F41.9 - Anxiety disorder, unspecified Status: Chronic (5) Congestive heart failure Code(s): I50.9 - Heart failure, unspecified Status: Chronic (6) Nutrition, metabolism, and development symptoms Code(s): R63.8 - Other symptoms and signs concerning food and fluid intake Status: Acute (7) DVT prophylaxis Status: Acute <Shreya Gould - 10/04/17 16:21> 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 Patient afebrile, VSS, White count 6.6, x-ray does not show any signs of osteomyelitis. Podiatry treat consulted, will appreciate recommendations. Vascular surgery consulted,will decide on treatment. Run off exam with severe vascular disease of lower extremities. Blood cultures negative x 48 hrs ESRCRP ordered. Follow-up CMP and CBC in a.m. Tylenol as needed for pain control. Morphine for breakthrough. Will consider Ceftriaxone and Clindamycin for coverage if Cultures come back positive for infection. (2) ESRD (end stage renal disease) Code(s): N18.6 - End stage renal disease Status: Acute Plan: Creatinine: 6.92 On HD. Nephrology managing. Please avoid any nephrotoxic drugs. (3) Hypertension Code(s): I10 - Essential (primary) hypertension Status: Acute Plan: Vital signs stable. Continue home medications Vital signs every 4. (4) Anxiety Code(s): F41.9 - Anxiety disorder, unspecified Status: Acute Plan: Continue home medications. (5) Congestive heart failure Code(s): I50.9 - Heart failure, unspecified Status: Acute Plan: Currently stable. On Lasix 40 mg at home, currently not giving it since Lasix dose is based on dialysis routine. He is not fluid overloaded at this time. (6) Nutrition, metabolism, and development symptoms Code(s): R63.8 - Other symptoms and signs concerning food and fluid intake Status: Acute Plan: Fluids: Encourage p.o. Electrolytes: Monitor and replete as needed. Diet. Cardiac (7) DVT prophylaxis Status: Acute Plan: SCDs only at this point. Will re evaluate tomorrow. <Cathy Germain V - 10/02/17 17:07> - Attending Attestation The exam, history, and the medical decision-making described in the above note were completed with the assistance of the resident physician. I reviewed and agree with the findings presented. I attest that I had a [id number] encounter with the patient on the same day, and personally performed and documented my assessment and findings in the medical record. he has a high risk of not healing well as his perfusion is poor <Shreya Gould M - 10/04/17 16:21> <Cathy Germain V - Last Filed: 10/02/17 17:07> (3) Hypertension Qualifiers: Hypertension type: renovascular hypertension Qualified Code(s): I15.0 - Renovascular hypertension (5) Congestive heart failure Qualifiers: Heart failure type: unspecified Heart failure chronicity: chronic Qualified Code(s): I50.9 - Heart failure, unspecified <Shreya Gould - Last Filed: 10/04/17 16:21> (3) Hypertension Qualifiers: Hypertension type: renovascular hypertension Qualified Code(s): I15.0 - Renovascular hypertension (5) Congestive heart failure Qualifiers: Heart failure type: unspecified Heart failure chronicity: chronic Qualified Code(s): I50.9 - Heart failure, unspecified <Cathy Germain V - Last Filed: 10/02/17 17:07> (3) Hypertension Qualifiers: Hypertension type: renovascular hypertension Qualified Code(s): I15.0 - Renovascular hypertension (5) Congestive heart failure Qualifiers: Heart failure type: unspecified Heart failure chronicity: chronic Qualified Code(s): I50.9 - Heart failure, unspecified <Shreya Gould - Last Filed: 10/04/17 16:21> (3) Hypertension Qualifiers: Hypertension type: renovascular hypertension Qualified Code(s): I15.0 - Renovascular hypertension (5) Congestive heart failure Qualifiers: Heart failure type: unspecified Heart failure chronicity: chronic Qualified Code(s): I50.9 - Heart failure, unspecified
[2017-10-02 22:36] LABS: C-Reactive Protein 10.7 mg/dL (0.00-0.30); Phosphorus 7.8 mg/dL (2.5-4.9)
[2017-10-03] MEDS: Carvedilol 6.25 MG Tablet PO SCH ×2 (08:14→21:25)
[2017-10-03] MEDS: FLUoxetine 20 MG Capsule PO SCH (08:14)
[2017-10-03 09:46] LABS: Baso # (Auto) 0.1 th/mm3 (0.0-0.2); Baso % (Auto) 0.9 % (0.0-2.0); Eos # (Auto) 0.1 th/mm3 (0.0-0.4); Eos % (Auto) 1.8 % (0.0-4.0); Hematocrit 33.2 % (39.0-51.0); Hemoglobin 10.9 gm/dL (13.0-17.0); Lymph # (Auto) 1.4 th/mm3 (1.0-4.8); Lymph % (Auto) 17.4 % (9.0-44.0); Mean Corpuscular HGB Conc 32.9 % (32.0-36.0); Mean Corpuscular Hemoglobin 30.5 pg (27.0-34.0); Mean Corpuscular Volume 92.5 fL (80.0-100.0); Mean Platelet Volume 8.9 fL (7.0-11.0); Mono # (Auto) 0.6 th/mm3 (0.0-0.9); Mono % (Auto) 8.1 % (0.0-8.0); Neut # (Auto) 5.6 th/mm3 (1.8-7.7); Neut % (Auto) 71.8 % (16.0-70.0); Platelet Count 156 th/mm3 (150-450); Red Blood Count 3.59 mil/mm3 (4.50-5.90); Red Cell Distribution Width 16.1 % (11.6-17.2); White Blood Count 7.8 th/mm3 (4.0-11.0)
[2017-10-03 09:54] LABS: INR 1.6 Ratio; Prothrombin Time 15.9 sec (9.8-11.6)
[2017-10-03 10:18] LABS: Alanine Aminotransferase 14 U/L (12-78); Albumin 2.8 g/dL (3.4-5.0); Alkaline Phosphatase 111 U/L (45-117); Anion Gap 13 meq/L (5-15); Aspartate Aminotransferase 16 U/L (15-37); Blood Urea Nitrogen 38 mg/dL (7-18); Calcium 8.7 mg/dL (8.5-10.1); Carbon Dioxide 25.9 meq/L (21.0-32.0); Chloride 90 meq/L (98-107); Glomerular Filtration Rate 6 mL/min (>89); Glucose,Random 98 mg/dL (74-106); Magnesium 2.1 mg/dL (1.5-2.5); Phosphorus 8.7 mg/dL (2.5-4.9); Sodium 129 meq/L (136-145); Total Protein 7.2 g/dL (6.4-8.2)
[2017-10-03] MEDS ORDERED: fentaNYL Citrate Inj 250 MCG/5 ML Ampul ONE (14:14)
--- NOTE | 2017-10-03 15:22 | P.PNNP ---
Subjective Interval history: Patient denies nausea, vomiting, diarrhea, fever, chills chest pain and dyspnea , persistence of foot pain, receiving dialysis without incident seen during dialysis HPI:This is a 71 year old male with history of ESRD for which he is on HD TTS, under the supervision of Dr. Luis. Patient apparently injured his left middle toe about 3-4 weeks ago. He did not seek any opinion regarding this matter for several weeks, although he had noticed that the toe had become purple to black. He had developed a non healing ulcer on the toe. He also has other areas on bilateral feet: tips of first 2 toes of the right foot, and first toe of the left foot that appear ischemic ulcers. PAST MEDICAL HISTORY: CHF, hypertension, history of a heart attack PAST SURGICAL HISTORY: Placement of defibrillator, vascular access for dialysis , cardiac catheterization SOCIAL HISTORY: FAMILY HISTORY: Cancer in patient's father mother and sister diabetes in brother and sister ALLERGY HISTORY: As per chart MEDS:As per chart TEST RESULTS: CARDIOPULMONARY: RADIOLOGIC: LABORATORY mild hyponatremia normal white count mildly HEALTH MAINTENANCE-: PROCEDURES: REVIEW OF SYSTEMS: GENERAL: POSITIVE for fatigue. Eyes: Negative for eye pain. ENT: Negative for earache RESP: Negative for cough. CV: negative for chest pain. GI: Negative for abdominal pain. -MALE:Negative for hematuria Musculoskeletal: POSITIVE for joint pain BACK: No Pain SKIN: POSITIVE for rash. NEURO: Negative for seizures. PSYCHE: Negative for depression. Lymph: No Lymph node enlargement Physical Exam Vital signs: Vital Signs 10/02/17 16:00 10/02/17 17:49 10/02/17 20:00 Temperature 98.2 F 97.4 F L Pulse Rate 66 71 Respiratory Rate 16 16 Blood Pressure 102/50 L 108/57 L Pulse Oximetry 95 95 94 L 10/03/17 00:00 10/03/17 04:00 10/03/17 08:00 Temperature 97.4 F L 97.6 F 97.6 F Pulse Rate 70 71 66 Respiratory Rate 19 19 18 Blood Pressure 97/53 L 99/58 L 100/53 L Pulse Oximetry 97 96 96 Intake & Output 10/02/17 10/03/17 10/03/17 18:59 06:59 18:59 Output Total 0 / 0 2500 / 2500 Balance 0 / 0 -2500 / -2500 Weight 79.6 kg Output: Urine 0 / 0 Hemodialysis Amount 2500 / 2500 Other: # Voids 2 # Bowel Movements 2 Narrative: GENERAL APPEARANCE: in no acute distress. HEENT:: normocephalic, atraumatic NECK :no cervical lymphadenopathy. ORAL CAVITY: mucosa moist. CHEST:normal SKIN: no suspicious lesions. HEART: no murmurs. LUNGS: clear to auscultation bilaterally. BREASTS: not examined. ABDOMEN: soft, nontender. BACK: No paraspinal muscle spasm. MALE GENITOURINARY: not examined. MUSCULOSKELETAL: normal. EXTREMITIES: Absent edema FOOT EXAM : Left middle toe ulcer on the dorsal aspect with erythema and nonpalpable pulses PERIPHERAL PULSES: normal. NEUROLOGIC: nonfocal. PSYCH: normal. 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 Code(s): L97.904 - Non-pressure chronic ulcer of unspecified part of unspecified lower leg with necrosis of bone Status: Acute Plan: Defer to hospitalist/primary care team (2) ESRD (end stage renal disease) Code(s): N18.6 - End stage renal disease Status: Acute Plan: #: N18.6 :ESRD-Standard care for ESRD patient --Periodic dialysis based on clinical symptoms laboratory results and volume status --with adequacy monitoring --as well as monitoring for anemia, nutrition, bone disease, blood pressure control, --monitor access adequacy, and complications (3) Hypertension Code(s): I10 - Essential (primary) hypertension Status: Acute Qualifiers: Hypertension type: renovascular hypertension Qualified Code(s): I15.0 - Renovascular hypertension Plan: Stable (4) Anxiety Code(s): F41.9 - Anxiety disorder, unspecified Status: Acute - Plan #: OTHER PROBLEMS: Ulcer of the lower extremity, with infection, anxiety PLAN: Defer to hospitalist/primary care team
--- NOTE | 2017-10-03 15:39 | P.RAD ---
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 Advanced/endstage small vessel disease below the Knee not amenable to endovascular treatment. No target for distal bypass evident. Right Leg; Diseased SFA but no high grade lesions. Advanced/endstage small vessel disease below the knee not amenable to endovascular treatment. No distal target for bypass evident. See PACS Report for procedural detail/treatment.
--- NOTE | 2017-10-03 16:46 | P.PNFP ---
Subjective Interval history: Patient seen and examined this morning. He has no complaints. No fevers or chills, no chest pain, no shortness of breath, no abdominal pain, no nausea or vomiting. He just wants to know what his plan is. <Ayde Quiroz - 10/03/17 16:46> Results - Labs Result diagrams: 10/04/17 07:55 10/04/17 07:55 <Shreya Gould - 10/04/17 16:22> Abnormal lab results 10/03/17 10/04/17 10/04/17 Range/Units 19:47 07:55 07:55 RBC 3.48 L 3.67 L (4.50-5.90) mil/mm3 Hgb 10.8 L 11.2 L (13.0-17.0) gm/dL Hct 32.2 L 34.6 L (39.0-51.0) % Plt Count 145 L (150-450) th/mm3 Neut % (Auto) 74.0 H 70.5 H (16.0-70.0) % [place] % (Auto) 8.6 H (0.0-8.0) % Sodium 131 L (136-145) meq/L Chloride 94 L (98-107) meq/L BUN 24 H (7-18) mg/dL Creatinine 6.39 H (0.60-1.30) mg/dL Estimated GFR 9 L (>89) mL/min Random Glucose 166 H (74-106) mg/dL Calcium 8.4 L (8.5-10.1) mg/dL Albumin 2.7 L (3.4-5.0) g/dL Short CBC 10/03/17 10/04/17 Range/Units 19:47 07:55 WBC 6.9 6.7 (4.0-11.0) th/mm3 Hgb 10.8 L 11.2 L (13.0-17.0) gm/dL Hct 32.2 L 34.6 L (39.0-51.0) % Plt Count 153 145 L (150-450) th/mm3 BMP 10/04/17 07:55 Sodium 131 L Potassium 4.1 D Chloride 94 L Carbon Dioxide 24.9 BUN 24 H Creatinine 6.39 H Calcium 8.4 L Liver Function 10/04/17 Range/Units 07:55 Total Bilirubin 0.6 (0.2-1.0) mg/dL AST 25 (15-37) U/L ALT 14 (12-78) U/L Alkaline Phosphatase 112 (45-117) U/L Albumin 2.7 L (3.4-5.0) g/dL <Shreya Gould - 10/04/17 16:22> Abnormal lab results 10/02/17 10/02/17 10/03/17 Range/Units 21:45 21:45 09:24 RBC 3.59 L (4.50-5.90) mil/mm3 Hgb 10.9 L (13.0-17.0) gm/dL Hct 33.2 L (39.0-51.0) % Neut % (Auto) 71.8 H (16.0-70.0) % [place] % (Auto) 8.1 H (0.0-8.0) % ESR 84 H (0-20) mm/hr PT (9.8-11.6) sec Sodium (136-145) meq/L Chloride (98-107) meq/L BUN (7-18) mg/dL Creatinine (0.60-1.30) mg/dL Estimated GFR (>89) mL/min Phosphorus 7.8 H D (2.5-4.9) mg/dL C-Reactive Protein 10.70 H (0.00-0.30) mg/dL Albumin (3.4-5.0) g/dL 10/03/17 10/03/17 10/03/17 Range/Units 09:24 09:24 09:24 RBC (4.50-5.90) mil/mm3 Hgb (13.0-17.0) gm/dL Hct (39.0-51.0) % Neut % (Auto) (16.0-70.0) % [place] % (Auto) (0.0-8.0) % ESR 86 H (0-20) mm/hr PT 15.9 H (9.8-11.6) sec Sodium 129 L (136-145) meq/L Chloride 90 L (98-107) meq/L BUN 38 H (7-18) mg/dL Creatinine 8.86 H (0.60-1.30) mg/dL Estimated GFR 6 L (>89) mL/min Phosphorus 8.7 H (2.5-4.9) mg/dL C-Reactive Protein 11.00 H (0.00-0.30) mg/dL Albumin 2.8 L (3.4-5.0) g/dL Short CBC 10/03/17 Range/Units 09:24 WBC 7.8 (4.0-11.0) th/mm3 Hgb 10.9 L (13.0-17.0) gm/dL Hct 33.2 L (39.0-51.0) % Plt Count 156 (150-450) th/mm3 BMP 10/03/17 09:24 Sodium 129 L Potassium 5.0 Chloride 90 L Carbon Dioxide 25.9 BUN 38 H Creatinine 8.86 H Calcium 8.7 Liver Function 10/03/17 Range/Units 09:24 Total Bilirubin 0.5 (0.2-1.0) mg/dL AST 16 (15-37) U/L ALT 14 (12-78) U/L Alkaline Phosphatase 111 (45-117) U/L Albumin 2.8 L (3.4-5.0) g/dL <Ayde Quiroz - 10/03/17 16:46> Physical Exam Vital signs: Vital Signs 10/03/17 16:30 10/03/17 22:48 10/04/17 08:00 Temperature 97.7 F 97.1 F L Pulse Rate 68 63 Respiratory Rate 16 18 18 Blood Pressure 98/65 L 83/49 L 105/52 L Pulse Oximetry 95 99 10/04/17 10:48 10/04/17 11:47 10/04/17 12:49 Temperature 98.7 F 97.2 F L Pulse Rate 60 60 Respiratory Rate 14 18 Blood Pressure 90/53 L 97/52 L Pulse Oximetry 99 99 Intake & Output 10/03/17 10/04/17 10/04/17 18:59 06:59 18:59 Intake Total 480 / 480 Output Total 2500 / 2500 Balance -2500 / -2500 480 / 480 Intake: Oral 480 / 480 Output: Hemodialysis Amount 2500 / 2500 Other: # Voids 2 <Shreya Gould - 10/04/17 16:22> Vital Signs 10/02/17 17:49 10/02/17 20:00 10/03/17 00:00 Temperature 97.4 F L 97.4 F L Pulse Rate 71 70 Respiratory Rate 16 19 Blood Pressure 108/57 L 97/53 L Pulse Oximetry 95 94 L 97 10/03/17 04:00 10/03/17 08:00 10/03/17 15:30 Temperature 97.6 F 97.6 F Pulse Rate 71 66 68 Respiratory Rate 19 18 Blood Pressure 99/58 L 100/53 L 98/59 L Pulse Oximetry 96 96 97 Intake & Output 10/02/17 10/03/17 10/03/17 18:59 06:59 18:59 Output Total 0 / 0 2500 / 2500 Balance 0 / 0 -2500 / -2500 Weight 79.6 kg Output: Urine 0 / 0 Hemodialysis Amount 2500 / 2500 Other: # Voids 2 # Bowel Movements 2 <Ayde Quiroz - 10/03/17 16:46> Narrative: GENERAL: white male sitting up in bed, in no acute distress SKIN: Warm and dry. HEAD: Atraumatic. Normocephalic. EYES: Pupils equal and round. No scleral icterus. No injection or drainage. ENT: No nasal bleeding or discharge. Mucous membranes pink and moist. 5x5cm soft mass at left neck. NECK: Trachea midline. No JVD. CARDIOVASCULAR: Regular rate and rhythm. RESPIRATORY: No accessory muscle use. Clear to auscultation. Breath sounds equal bilaterally. GASTROINTESTINAL: Abdomen soft, non-tender, nondistended. Hepatic and splenic margins not palpable. MUSCULOSKELETAL: Extremities without clubbing, cyanosis, or edema. No obvious deformities. Left middle toe necrotic ulcer on the dorsal aspect with erythema and nonpalpable pulses NEUROLOGICAL: Awake and alert. No obvious cranial nerve deficits. Motor grossly within normal limits. Normal speech. PSYCHIATRIC: Appropriate mood and affect; insight and judgment normal. <Ayde Quiroz - 10/03/17 16:46> 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 Code(s): L97.904 - Non-pressure chronic ulcer of unspecified part of unspecified lower leg with necrosis of bone Status: Acute (2) ESRD (end stage renal disease) Code(s): N18.6 - End stage renal disease Status: Chronic (3) Hypertension Code(s): I10 - Essential (primary) hypertension Status: Chronic (4) Anxiety Code(s): F41.9 - Anxiety disorder, unspecified Status: Chronic (5) Congestive heart failure Code(s): I50.9 - Heart failure, unspecified Status: Chronic (6) Nutrition, metabolism, and development symptoms Code(s): R63.8 - Other symptoms and signs concerning food and fluid intake Status: Acute (7) DVT prophylaxis Status: Acute <Shreya Gould - 10/04/17 16:22> 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 Patient afebrile, VSS, White count 6.6, x-ray does not show any signs of osteomyelitis. Blood cultures negative x 48 hrs CTA runoff 10/02: 1. Severe diffuse arterial atherosclerotic calcifications with no significant aortic or iliac inflow stenosis. 2. Moderate to severe focal stenosis of the right SFA in the distal thigh. 3. Focal moderate stenosis of the left SFA in the distal thigh. 4. Severely diseased and diffusely calcified tibial arteries precluding definitive evaluation. However, there appeared to be multiple tandem severe stenoses/occlusions in the tibial arteries bilaterally. Patient's symptoms are therefore primarily due to runoff disease. Podiatry consulted, appreciate recommendations. Vascular surgery consulted,will decide on treatment. Run off exam with severe vascular disease of lower extremities. -Evaluate for possible balloon dilatation of SFAs in interventional suit to at least somewhat improved distal inflow. Tylenol as needed for pain control. Morphine for breakthrough. (2) ESRD (end stage renal disease) Code(s): N18.6 - End stage renal disease Status: Chronic Plan: Creatinine: 8.82. On HD. Neurology consulted, appreciate recommendations -Periodic hemodialysis Avoid any nephrotoxic drugs. (3) Hypertension Code(s): I10 - Essential (primary) hypertension Status: Chronic Plan: Vital signs stable. Continue home medications: -Carvedilol 6.25 mg p.o. twice daily (4) Anxiety Code(s): F41.9 - Anxiety disorder, unspecified Status: Chronic Plan: Continue home medications. -Fluoxetine 20 mg p.o. daily (5) Congestive heart failure Code(s): I50.9 - Heart failure, unspecified Status: Chronic Plan: Currently stable. On Lasix 40 mg at home, currently not giving it since Lasix dose is based on dialysis routine. He is not fluid overloaded at this time. (6) Nutrition, metabolism, and development symptoms Code(s): R63.8 - Other symptoms and signs concerning food and fluid intake Status: Acute Plan: Fluids: Encourage p.o. Electrolytes: Monitor and replete as needed. Diet. Cardiac (7) DVT prophylaxis Status: Acute Plan: SCDs only at this point. <Ayde Quiroz - 10/03/17 16:32> - Attending Attestation The exam, history, and the medical decision-making described in the above note were completed with the assistance of the resident physician. I reviewed and agree with the findings presented. I attest that I had a [id number] encounter with the patient on the same day, and personally performed and documented my assessment and findings in the medical record. his feet are stable. unsure if he might benefit from hyperbaric oxygen as an outpt vs other treatments. consulted Dr Morales for her opinion <Shreya Gould - 10/04/17 16:22> <Ayde Quiroz - Last Filed: 10/03/17 16:32> (3) Hypertension Qualifiers: Hypertension type: renovascular hypertension Qualified Code(s): I15.0 - Renovascular hypertension (5) Congestive heart failure Qualifiers: Heart failure type: unspecified Heart failure chronicity: chronic Qualified Code(s): I50.9 - Heart failure, unspecified <Shreya Gould - Last Filed: 10/04/17 16:22> (3) Hypertension Qualifiers: Hypertension type: renovascular hypertension Qualified Code(s): I15.0 - Renovascular hypertension (5) Congestive heart failure Qualifiers: Heart failure type: unspecified Heart failure chronicity: chronic Qualified Code(s): I50.9 - Heart failure, unspecified <Ayde Quiroz G - Last Filed: 10/03/17 16:32> (3) Hypertension Qualifiers: Hypertension type: renovascular hypertension Qualified Code(s): I15.0 - Renovascular hypertension (5) Congestive heart failure Qualifiers: Heart failure type: unspecified Heart failure chronicity: chronic Qualified Code(s): I50.9 - Heart failure, unspecified <Shreya Gould M - Last Filed: 10/04/17 16:22> (3) Hypertension Qualifiers: Hypertension type: renovascular hypertension Qualified Code(s): I15.0 - Renovascular hypertension (5) Congestive heart failure Qualifiers: Heart failure type: unspecified Heart failure chronicity: chronic Qualified Code(s): I50.9 - Heart failure, unspecified
--- NOTE | 2017-10-03 17:44 | P.PNVS ---
Subjective Subjective/Hospital Course: 09/30/2017 Referral received Full vascular consult to follow Thanks J 10/02/2017 Patient with severe peripheral vascular disease good inflow and poor outflow into both legs with necrotic left third toe CTA with a runoff confirms the clinical impression. Patient has good inflow with known hemodynamically significant stenosis in the iliac vessels and common femoral arteries. He has bilateral tight stenosis of superficial femoral artery in the adductor canal which progresses into severely calcified anterior and posterior tibial arteries which sort of Peter off throughout the lower leg toward the foot. All in all patient has severe peripheral vascular disease consistent with diabetes mellitus involving small vessels below the level of trifurcation and stenosis of the level of SFA bilateral. His blood floor at this point as well as the pathology is dependent on the poor flow and occlusion of the anterior and posterior tibial arteries. Nonetheless we will evaluate for possible balloon dilatation of SFAs in interventional suit to at least somewhat improved distal inflow. 10/03/2017 Patient underwent angiogram with distal runoff today in the purpose and attempt to perhaps endovascularly balloon and dilate some of the distal vessels in both legs. Unfortunately angiogram reveals that patient has multilevel ratty stenosis of the SFA which is not hemodynamically significant however coming to the knee patient has an essentially no outflow in the trifurcation vessels in both legs and there is no target vessel to address. His trifurcation vessels are severely diseased and patient is basically perfusing both lower legs and feet by collateral flow. At this point there is no vascular or endovascular procedure that would help this patient. Spoken to Dr. Connors and will do go ahead with amputation of the toes as previously planned with the understanding that this may not heal and patient may end up with a higher level of amputation. Objective Vital Signs / I&O: Vital Signs 10/02/17 17:49 10/02/17 20:00 10/03/17 00:00 Temperature 97.4 F L 97.4 F L Pulse Rate 71 70 Respiratory Rate 16 19 Blood Pressure 108/57 L 97/53 L Pulse Oximetry 95 94 L 97 10/03/17 04:00 10/03/17 08:00 10/03/17 15:30 Temperature 97.6 F 97.6 F Pulse Rate 71 66 68 Respiratory Rate 19 18 Blood Pressure 99/58 L 100/53 L 98/59 L Pulse Oximetry 96 96 97 10/03/17 16:30 Temperature Pulse Rate Respiratory Rate 16 Blood Pressure 98/65 L Pulse Oximetry Intake & Output 10/02/17 10/03/17 10/03/17 18:59 06:59 18:59 Output Total 0 / 0 2500 / 2500 Balance 0 / 0 -2500 / -2500 Weight 79.6 kg Output: Urine 0 / 0 Hemodialysis Amount 2500 / 2500 Other: # Voids 2 # Bowel Movements 2 Laboratory Results - last 24 hr 10/02/17 10/02/17 10/03/17 21:45 21:45 09:24 WBC 7.8 RBC 3.59 L Hgb 10.9 L Hct 33.2 L MCV 92.5 MCH 30.5 MCHC 32.9 RDW 16.1 Plt Count 156 MPV 8.9 Neut % (Auto) 71.8 H Lymph % (Auto) 17.4 [place] % (Auto) 8.1 H Eos % (Auto) 1.8 Baso % (Auto) 0.9 Neut # (Auto) 5.6 Lymph # (Auto) 1.4 [place] # (Auto) 0.6 Eos # (Auto) 0.1 Baso # (Auto) 0.1 WBC Differential . Differential Comment Auto diff final ESR 84 H PT INR Sodium Potassium Chloride Carbon Dioxide Anion Gap BUN Creatinine Estimated GFR Random Glucose Calcium Phosphorus 7.8 H D Magnesium Total Bilirubin AST ALT Alkaline Phosphatase C-Reactive Protein 10.70 H Total Protein Albumin 10/03/17 10/03/17 10/03/17 09:24 09:24 09:24 WBC RBC Hgb Hct MCV MCH MCHC RDW Plt Count MPV Neut % (Auto) Lymph % (Auto) [place] % (Auto) Eos % (Auto) Baso % (Auto) Neut # (Auto) Lymph # (Auto) [place] # (Auto) Eos # (Auto) Baso # (Auto) WBC Differential Differential Comment ESR 86 H PT 15.9 H INR 1.6 Sodium 129 L Potassium 5.0 Chloride 90 L Carbon Dioxide 25.9 Anion Gap 13 BUN 38 H Creatinine 8.86 H Estimated GFR 6 L Random Glucose 98 Calcium 8.7 Phosphorus 8.7 H Magnesium 2.1 Total Bilirubin 0.5 AST 16 ALT 14 Alkaline Phosphatase 111 C-Reactive Protein 11.00 H Total Protein 7.2 Albumin 2.8 L Microbiology 09/30/17 15:00 Aerobic Blood Culture - Preliminary Blood - Peripheral No growth in 3 days Anaerobic Blood Culture - Preliminary No growth in 3 days 09/30/17 15:12 Aerobic Blood Culture - Preliminary Blood - Peripheral No growth in 3 days Anaerobic Blood Culture - Preliminary No growth in 3 days Impressions Aorta w/Runoff CTA 10/02/17 00:00 CONCLUSION: 1. Severe diffuse arterial atherosclerotic calcifications with no significant aortic or iliac inflow stenosis. 2. Moderate to severe focal stenosis of the right SFA in the distal thigh. 3. Focal moderate stenosis of the left SFA in the distal thigh. 4. Severely diseased and diffusely calcified tibial arteries precluding definitive evaluation. However, there appeared to be multiple tandem severe stenoses/occlusions in the tibial arteries bilaterally. Patient's symptoms are therefore primarily due to runoff disease. 5. Nodular appearance of the liver consistent with cirrhosis. 6. Very trace left pleural effusion. 7. Cholelithiasis. 8. Sigmoid diverticulosis.
[2017-10-03 20:16] LABS: Baso % (Auto) 0.6 % (0.0-2.0); Eos # (Auto) 0.1 th/mm3 (0.0-0.4); Eos % (Auto) 1.9 % (0.0-4.0); Hematocrit 32.2 % (39.0-51.0); Hemoglobin 10.8 gm/dL (13.0-17.0); Lymph # (Auto) 1.1 th/mm3 (1.0-4.8); Lymph % (Auto) 16.5 % (9.0-44.0); Mean Corpuscular HGB Conc 33.5 % (32.0-36.0); Mean Corpuscular Hemoglobin 31.1 pg (27.0-34.0); Mean Corpuscular Volume 92.7 fL (80.0-100.0); Mono # (Auto) 0.5 th/mm3 (0.0-0.9); Neut # (Auto) 5.1 th/mm3 (1.8-7.7); Platelet Count 153 th/mm3 (150-450); Red Blood Count 3.48 mil/mm3 (4.50-5.90); Red Cell Distribution Width 16.3 % (11.6-17.2); White Blood Count 6.9 th/mm3 (4.0-11.0)
[2017-10-03] MEDS ORDERED: Chlorhexidine Gluconate 2% 1 Pack (2 Cloths) TOPICAL SCH (21:45)
[2017-10-03] MEDS ORDERED: Metoprolol Tartrate 25 MG Tablet PO SCH (21:45)
[2017-10-03] MEDS ORDERED: Sodium Chlor 0.9% Inj 500 ML IV.SIG SCH (22:00)
[2017-10-04] MEDS: FLUoxetine 20 MG Capsule PO SCH (08:02)
[2017-10-04] MEDS: Carvedilol 6.25 MG Tablet PO SCH (08:02)
[2017-10-04 08:49] LABS: Baso # (Auto) 0.1 th/mm3 (0.0-0.2); Baso % (Auto) 0.9 % (0.0-2.0); Eos # (Auto) 0.2 th/mm3 (0.0-0.4); Eos % (Auto) 2.4 % (0.0-4.0); Hematocrit 34.6 % (39.0-51.0); Hemoglobin 11.2 gm/dL (13.0-17.0); Lymph # (Auto) 1.2 th/mm3 (1.0-4.8); Lymph % (Auto) 17.6 % (9.0-44.0); Mean Corpuscular HGB Conc 32.3 % (32.0-36.0); Mean Corpuscular Hemoglobin 30.5 pg (27.0-34.0); Mean Corpuscular Volume 94.4 fL (80.0-100.0); Mean Platelet Volume 9.4 fL (7.0-11.0); Mono # (Auto) 0.6 th/mm3 (0.0-0.9); Mono % (Auto) 8.6 % (0.0-8.0); Neut # (Auto) 4.7 th/mm3 (1.8-7.7); Neut % (Auto) 70.5 % (16.0-70.0); Platelet Count 145 th/mm3 (150-450); Red Blood Count 3.67 mil/mm3 (4.50-5.90); Red Cell Distribution Width 16.8 % (11.6-17.2); White Blood Count 6.7 th/mm3 (4.0-11.0)
[2017-10-04 09:12] LABS: Alanine Aminotransferase 14 U/L (12-78); Albumin 2.7 g/dL (3.4-5.0); Alkaline Phosphatase 112 U/L (45-117); Anion Gap 12 meq/L (5-15); Aspartate Aminotransferase 25 U/L (15-37); Blood Urea Nitrogen 24 mg/dL (7-18); Calcium 8.4 mg/dL (8.5-10.1); Carbon Dioxide 24.9 meq/L (21.0-32.0); Chloride 94 meq/L (98-107); Glomerular Filtration Rate 9 mL/min (>89); Glucose,Random 166 mg/dL (74-106); Potassium 4.1 meq/L (3.5-5.1); Sodium 131 meq/L (136-145)
--- NOTE | 2017-10-04 11:00 | P.PNNP ---
Subjective Interval history: Resting comfortably with no complaints. Denies any shortness of breath, nausea , vomiting, or diarrhea. Hemodialysis yesterday tolerated well. Physical Exam Vital signs: Vital Signs 10/03/17 15:30 10/03/17 16:30 10/03/17 22:48 Temperature 97.7 F Pulse Rate 68 68 Respiratory Rate 16 18 Blood Pressure 98/59 L 98/65 L 83/49 L Pulse Oximetry 97 95 10/04/17 08:00 10/04/17 10:48 Temperature 97.1 F L Pulse Rate 63 Respiratory Rate 18 Blood Pressure 105/52 L Pulse Oximetry 99 99 Intake & Output 10/03/17 10/04/17 10/04/17 18:59 06:59 18:59 Intake Total 480 / 480 Output Total 2500 / 2500 Balance -2500 / -2500 480 / 480 Intake: Oral 480 / 480 Output: Hemodialysis Amount 2500 / 2500 Other: # Voids 2 Narrative: GENERAL: Alert and oriented. SKIN: Warm and dry. HEAD: Atraumatic. Normocephalic. EYES: Pupils equal and round. No scleral icterus. No injection or drainage. ENT: No nasal bleeding or discharge. Mucous membranes pink and moist. 5x5cm soft mass at left neck. NECK: Trachea midline. No JVD. CARDIOVASCULAR: Regular rate and rhythm. RESPIRATORY: No accessory muscle use. Clear to auscultation. Breath sounds equal bilaterally. GASTROINTESTINAL: Abdomen soft, non-tender, nondistended. MUSCULOSKELETAL: Extremities without clubbing, cyanosis, or edema. No obvious deformities. Left middle toe necrotic ulcer on the dorsal aspect. Assessment and Plan - Assessment (1) ESRD (end stage renal disease) Code(s): N18.6 - End stage renal disease Status: Chronic Plan: : End stage renal disease on regular scheduled days are Monday, , and Monday Protect left upper extremity from IV and BP measurements. Avoid Gadolinium. High protein diet, low potassium and phosphorus diet. PO4 elevated will add Phoslo with meals Monitor labs including phosphorus intermittently. 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 (4) Hypertension Code(s): I10 - Essential (primary) hypertension Status: Chronic Qualifiers: Hypertension type: renovascular hypertension Qualified Code(s): I15.0 - Renovascular hypertension Plan: Blood pressure on lower side with decreased Coreg. (5) Anemia Code(s): D64.9 - Anemia, unspecified Status: Acute Plan: HGB stable at 11.2 Epogen with dialysis
--- NOTE | 2017-10-04 11:37 | P.PNFP ---
Subjective Interval history: Pt doing well this morning. No complaints at this time. There were no acute events overnight. Had extended conversation with patient regarding results and procedures done yesterday with INR, he seems to understand. I are unable to complete revascularization due to severe damage to blood vessels. At this point we are waiting for podiatry for recommendations on treatment. Possibilities include amputation of the toe, and/or feet. Patient understands severity of disease. He had an opportunity to ask questions as well as his brother present in the room. Patient denies fevers, chills, shortness of breath, abdominal pain, chest pain, nausea, vomiting, constipation, diarrhea. <Cathy Germain V - 10/04/17 20:56> Results - Labs Result diagrams: 10/05/17 04:29 10/05/17 04:29 <Shreya Gould M - 10/05/17 12:59> Abnormal lab results 10/05/17 10/05/17 Range/Units 04:29 04:29 RBC 3.40 L (4.50-5.90) mil/mm3 Hgb 10.4 L (13.0-17.0) gm/dL Hct 31.4 L (39.0-51.0) % Plt Count 146 L (150-450) th/mm3 Sodium 134 L (136-145) meq/L Chloride 92 L (98-107) meq/L BUN 32 H (7-18) mg/dL Creatinine 7.69 H (0.60-1.30) mg/dL Estimated GFR 7 L (>89) mL/min Short CBC 10/05/17 Range/Units 04:29 WBC 7.5 (4.0-11.0) th/mm3 Hgb 10.4 L (13.0-17.0) gm/dL Hct 31.4 L (39.0-51.0) % Plt Count 146 L (150-450) th/mm3 BMP 10/05/17 04:29 Sodium 134 L Potassium 3.6 Chloride 92 L Carbon Dioxide 29.7 BUN 32 H Creatinine 7.69 H Calcium 8.6 <Shreya Gould - 10/05/17 12:59> Abnormal lab results 10/03/17 10/04/17 10/04/17 Range/Units 19:47 07:55 07:55 RBC 3.48 L 3.67 L (4.50-5.90) mil/mm3 Hgb 10.8 L 11.2 L (13.0-17.0) gm/dL Hct 32.2 L 34.6 L (39.0-51.0) % Plt Count 145 L (150-450) th/mm3 Neut % (Auto) 74.0 H 70.5 H (16.0-70.0) % [place] % (Auto) 8.6 H (0.0-8.0) % Sodium 131 L (136-145) meq/L Chloride 94 L (98-107) meq/L BUN 24 H (7-18) mg/dL Creatinine 6.39 H (0.60-1.30) mg/dL Estimated GFR 9 L (>89) mL/min Random Glucose 166 H (74-106) mg/dL Calcium 8.4 L (8.5-10.1) mg/dL Albumin 2.7 L (3.4-5.0) g/dL Short CBC 10/03/17 10/04/17 Range/Units 19:47 07:55 WBC 6.9 6.7 (4.0-11.0) th/mm3 Hgb 10.8 L 11.2 L (13.0-17.0) gm/dL Hct 32.2 L 34.6 L (39.0-51.0) % Plt Count 153 145 L (150-450) th/mm3 BMP 10/04/17 07:55 Sodium 131 L Potassium 4.1 D Chloride 94 L Carbon Dioxide 24.9 BUN 24 H Creatinine 6.39 H Calcium 8.4 L Liver Function 10/04/17 Range/Units 07:55 Total Bilirubin 0.6 (0.2-1.0) mg/dL AST 25 (15-37) U/L ALT 14 (12-78) U/L Alkaline Phosphatase 112 (45-117) U/L Albumin 2.7 L (3.4-5.0) g/dL <Cathy Germain V - 10/04/17 11:36> Physical Exam Vital signs: Vital Signs 10/04/17 16:49 10/04/17 17:48 10/04/17 20:00 Temperature 97.1 F L 97.2 F L Pulse Rate 61 65 Respiratory Rate 18 18 Blood Pressure 98/56 L 108/50 L Pulse Oximetry 99 99 99 10/04/17 20:30 10/05/17 00:00 10/05/17 00:10 Temperature 98.0 F Pulse Rate 66 65 65 Respiratory Rate 17 Blood Pressure 103/45 L Pulse Oximetry 93 L 10/05/17 04:00 10/05/17 04:05 10/05/17 08:00 Temperature 97.2 F L 97.1 F L Pulse Rate 63 65 72 Respiratory Rate 17 14 Blood Pressure 102/49 L 106/58 L Pulse Oximetry 98 92 L Intake & Output 10/04/17 10/05/17 10/05/17 18:59 06:59 18:59 Intake Total 480 / 480 Output Total 1500 / 1500 Balance 480 / 480 -1500 / -1500 Weight 79.5 kg Intake: Oral 480 / 480 Output: Hemodialysis Amount 1500 / 1500 Other: # Voids 3 0 <Shreya Gould M - 10/05/17 12:59> Vital Signs 10/03/17 15:30 10/03/17 16:30 10/03/17 22:48 Temperature 97.7 F Pulse Rate 68 68 Respiratory Rate 16 18 Blood Pressure 98/59 L 98/65 L 83/49 L Pulse Oximetry 97 95 10/04/17 08:00 10/04/17 10:48 Temperature 97.1 F L Pulse Rate 63 Respiratory Rate 18 Blood Pressure 105/52 L Pulse Oximetry 99 99 Intake & Output 10/03/17 10/04/17 10/04/17 18:59 06:59 18:59 Intake Total 480 / 480 Output Total 2500 / 2500 Balance -2500 / -2500 480 / 480 Intake: Oral 480 / 480 Output: Hemodialysis Amount 2500 / 2500 Other: # Voids 2 <Neisha RoeCathyZina - 10/04/17 18:48> Narrative: GENERAL APPEARANCE: in no acute distress. 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 No painful. ORAL CAVITY: mucosa moist. SKIN: no suspicious lesions. Other than noted on foot exam below. HEART: RRR, S1/S2, holosystolic murmur. LUNGS: clear to auscultation bilaterally. Regular breathing, no accessory muscle use. ABDOMEN: soft, nontender. + BS, no masses MALE GENITOURINARY: not examined. EXTREMITIES: Absent edema, non palpable pulses FOOT EXAM : Left middle toe ulcer on the dorsal aspect with erythema and nonpalpable pulses. Necrotic in appearance. Several lesions on multiple toes bilaterally. <Cathy Germain V - 10/04/17 18:48> 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 Code(s): L97.904 - Non-pressure chronic ulcer of unspecified part of unspecified lower leg with necrosis of bone Status: Acute (2) ESRD (end stage renal disease) Code(s): N18.6 - End stage renal disease Status: Chronic (3) Hypertension Code(s): I10 - Essential (primary) hypertension Status: Chronic (4) Anxiety Code(s): F41.9 - Anxiety disorder, unspecified Status: Chronic (5) Congestive heart failure Code(s): I50.9 - Heart failure, unspecified Status: Chronic (6) Nutrition, metabolism, and development symptoms Code(s): R63.8 - Other symptoms and signs concerning food and fluid intake Status: Acute (7) DVT prophylaxis Status: Acute <Shreya Gould M - 10/05/17 12:59> 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 Patient afebrile, VSS, White count 6.6, x-ray does not show any signs of osteomyelitis. Blood cultures negative x 48 hrs CTA runoff 10/02: 1. Severe diffuse arterial atherosclerotic calcifications with no significant aortic or iliac inflow stenosis. 2. Moderate to severe focal stenosis of the right SFA in the distal thigh. 3. Focal moderate stenosis of the left SFA in the distal thigh. 4. Severely diseased and diffusely calcified tibial arteries precluding definitive evaluation. However, there appeared to be multiple tandem severe stenoses/occlusions in the tibial arteries bilaterally. Patient's symptoms are therefore primarily due to runoff disease. Podiatry consulted, appreciate recommendations. Vascular surgery -Unable to proceed with balloon dilatation of SFAs due to severe vessels -Podiatry to evaluate possible amputation of toe Tylenol as needed for pain control. Morphine for breakthrough. (2) ESRD (end stage renal disease) Code(s): N18.6 - End stage renal disease Status: Chronic Plan: Creatinine: 6.39 today. On HD. Neurology consulted, appreciate recommendations -Periodic hemodialysis Avoid any nephrotoxic drugs. (3) Hypertension Code(s): I10 - Essential (primary) hypertension Status: Chronic Plan: Vital signs stable. Continue home medications: -Carvedilol 6.25 mg p.o. twice daily -Patient at this moment with low blood pressures. Hold medications (4) Anxiety Code(s): F41.9 - Anxiety disorder, unspecified Status: Chronic Plan: Continue home medications. -Fluoxetine 20 mg p.o. daily (5) Congestive heart failure Code(s): I50.9 - Heart failure, unspecified Status: Chronic Plan: Currently stable. On Lasix 40 mg at home, currently not giving it since Lasix dose is based on dialysis routine. He is not fluid overloaded at this time. (6) Nutrition, metabolism, and development symptoms Code(s): R63.8 - Other symptoms and signs concerning food and fluid intake Status: Acute Plan: Fluids: Encourage p.o. Electrolytes: Monitor and replete as needed. Diet. NPO at the moment due to possible amputation (7) DVT prophylaxis Status: Acute Plan: SCDs only at this point. <Cathy Germain V - 10/04/17 20:56> - Attending Attestation The exam, history, and the medical decision-making described in the above note were completed with the assistance of the resident physician. I reviewed and agree with the findings presented. I attest that I had a [id number] encounter with the patient on the same day, and personally performed and documented my assessment and findings in the medical record. Discussed with him that it is difficult to heal any wounds or surgery with poor perfusion. Will consult wound care physician Dr. Shakila Elizabeth to see if she has any recommendations such as possibly hyperbaric oxygen or other treatments. 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 <Cathy Germain V - Last Filed: 10/04/17 20:56> (3) Hypertension Qualifiers: Hypertension type: renovascular hypertension Qualified Code(s): I15.0 - Renovascular hypertension (5) Congestive heart failure Qualifiers: Heart failure type: unspecified Heart failure chronicity: chronic Qualified Code(s): I50.9 - Heart failure, unspecified <Shreya Gould - Last Filed: 10/05/17 12:59> 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
[2017-10-04] MEDS: Calcium Acetate 667 MG Capsule PO SCH ×2 (14:36→18:37)
--- NOTE | 2017-10-04 20:51 | P.PNPOD ---
Subjective Interval history: Multiple attempts to see prior to today, but off the floor for various reasons. Pt states he is aware he is scheduled for a toe amputation tomorrow and is ready to move forward with it. He is aware that if the toe amputation does not heal it could lead to a much higher level of amputation. He denies any pain/n/v/ f/h/c/sob. Physical Exam Vital signs: Vital Signs 10/03/17 22:48 10/04/17 08:00 10/04/17 10:48 Temperature 97.7 F 97.1 F L Pulse Rate 68 63 Respiratory Rate 18 18 Blood Pressure 83/49 L 105/52 L Pulse Oximetry 95 99 99 10/04/17 11:47 10/04/17 12:49 10/04/17 16:49 Temperature 98.7 F 97.2 F L 97.1 F L Pulse Rate 60 60 61 Respiratory Rate 14 18 18 Blood Pressure 90/53 L 97/52 L 98/56 L Pulse Oximetry 99 99 10/04/17 17:48 Temperature Pulse Rate Respiratory Rate Blood Pressure Pulse Oximetry 99 Intake & Output 10/04/17 10/04/17 10/05/17 06:59 18:59 06:59 Intake Total 480 / 480 480 / 480 Balance 480 / 480 480 / 480 Intake: Oral 480 / 480 480 / 480 Other: # Voids 2 3 Narrative: No changes since admission Left third digit with exposed bone at PIPJ, bone is dry and discolored, multiple eschars to digits bilaterally. No erythema or signs of skin infection. Medications and Allergies Active Medications: Active Medications Acetaminophen (Tylenol) 650 mg PO Q4H PRN PRN Reason: Temp > 100.4 Acetaminophen (Tylenol) 650 mg PO UNSCH PRN PRN Reason: SEE LABEL COMMENTS Bisacodyl (Dulcolax Supp) 10 mg RECTAL DAILY PRN PRN Reason: SEVERE CONSITIPATION Calcium Acetate (Phoslo) 1,334 mg PO TID [facility] Last Admin: 10/04/17 18:37 Dose: 1,334 mg Carvedilol (Coreg) 3.125 mg PO BID [facility] Chlorhexidine Gluconate (Chlorhexidine 2% Cloth) 3 pack TOPICAL [facility] Stop: 10/06/17 21:32 Clonidine HCl (Catapres) 0.1 mg PO UNSCH PRN PRN Reason: SEE LABEL COMMENTS Diphenhydramine HCl (Benadryl) 25 mg PO UNSCH PRN PRN Reason: SEE LABEL COMMENTS Last Admin: 10/03/17 00:01 Dose: 25 mg Epoetin [place] (Epogen Inj) 5,000 unit IV.PUSH UNSCH PRN PRN Reason: SEE LABEL COMMENTS Last Admin: 10/03/17 13:20 Dose: 5,000 unit Fluoxetine HCl (Prozac) 20 mg PO DAILY [facility] Last Admin: 10/04/17 08:02 Dose: 20 mg Gelatin (Gelfoam 12 Mm/7 Mm Topical) 1 foam TOPICAL PRN PRN PRN Reason: help stop bleeding from site Gentamicin Sulfate (Gentamicin Inj) 20 mg OTHER WITH DIALYSIS PRN PRN Reason: Dwell Gentamycin Lock Heparin Sodium (Porcine) (Heparin Inj) 8,000 units OTHER WITH DIALYSIS PRN PRN Reason: for machine prime Heparin Sodium (Porcine) (Heparin Inj) 1,000 units OTHER WITH DIALYSIS PRN PRN Reason: Dwell Heparin to Fill Catheter Albumin Human (Flexbumin 25% Inj) 100 mls @ 60 mls/hr IV.SIG WITH DIALYSIS PRN PRN Reason: hypotension / volume replace Sodium Chloride (Ns Inj) 1,000 mls @ 200 mls/hr OTHER .Q5H PRN PRN Reason: for dialyzer flush PRN Sodium Chloride (Ns Inj) 1,000 mls @ 0 mls/hr IV.CONT .Q0M PRN PRN Reason: hypotension / volume replace Sodium Chloride (Ns Inj) 1,000 mls @ 0 mls/hr OTHER .Q0M PRN PRN Reason: for prime and rinse back Lactated Ringer's (Lr 1000 Ml Inj) 1,000 mls @ 30 mls/hr IV.SIG .Q24H [facility] Stop: 10/06/17 21:32 Last Admin: 10/03/17 23:00 Dose: Not Given Sodium Chloride (Ns Inj) 500 mls @ 30 mls/hr IV.SIG .Q10H [facility] Stop: 10/06/17 21:32 Lactulose (Lactulose Liq) 30 ml PO DAILY PRN PRN Reason: SEVERE CONSITIPATION Mannitol (Mannitol Inj) 12.5 gm IV.PUSH UNSCH PRN PRN Reason: hypotension / volume replace Metoprolol Tartrate (Lopressor) 25 mg PO [facility] Stop: 10/06/17 21:32 Morphine Sulfate (Morphine Inj) 4 mg IV.PUSH Q3H PRN PRN Reason: PAIN 6-10;IF UNABLE TO TAKE PO Last Admin: 10/02/17 21:36 Dose: 4 mg Morphine Sulfate (Morphine Inj) 2 mg IV.PUSH Q3H PRN PRN Reason: PAIN 3-5; IF UABLE TO TAKE PO Naloxone HCl (Narcan Inj) 0.4 mg IV.PUSH UNSCH PRN PRN Reason: SEE LABEL COMMENTS Nitroglycerin (Nitrostat Sl) 0.4 mg SL Q5M PRN PRN Reason: CHEST PAIN Ondansetron HCl (Zofran Inj) 4 mg IV.PUSH Q6H PRN PRN Reason: NAUSEA OR VOMITING Ondansetron HCl (Zofran Inj) 4 mg IV.PUSH UNSCH PRN PRN Reason: NAUSEA OR VOMITING Pantoprazole Sodium (Protonix) 40 mg PO DAILY [facility] Last Admin: 10/04/17 08:02 Dose: 40 mg Povidone Iodine (Betadine 5% Antisepsis Kit) 1 applicatio EACH NARE [employer] Stop: 10/06/17 21:32 Sennosides (Senokot) 17.2 mg PO Q12H PRN PRN Reason: Moderate Constipation Sodium Chloride (Ns Flush) 5 ml IV.FLUSH PRN PRN PRN Reason: flush each lumen during HD Temazepam (Restoril) 15 mg PO HS PRN PRN Reason: INSOMNIA Allergies Allergy/AdvReac Type Severity Reaction Status Date / Time neomycin Allergy Severe Anaphylaxis Verified 10/03/17 14:34 Home Medications Medication Instructions Recorded Confirmed Type carvedilol 6.25 mg PO BID 09/30/17 09/30/17 History fluoxetine 20 mg PO DAILY 09/30/17 09/30/17 History folic acid 1 mg PO DAILY 09/30/17 09/30/17 History furosemide 20 mg PO DAILY 09/30/17 09/30/17 History isosorbide mononitrate 30 mg PO DAILY 09/30/17 09/30/17 History mirtazapine 15 mg PO DAILY 09/30/17 09/30/17 History pantoprazole 40 mg PO DAILY 09/30/17 09/30/17 History vit B comp no.[id number]-[id number]-biotin 1 tab PO DAILY 09/30/17 09/30/17 History [[facility] Rx] warfarin 5 mg PO DAILY 09/30/17 09/30/17 History Results - Labs CBC & Chem 7: 10/04/17 07:55 10/04/17 07:55 Laboratory Results - last 24 hr 10/04/17 10/04/17 07:55 07:55 WBC 6.7 RBC 3.67 L Hgb 11.2 L Hct 34.6 L MCV 94.4 MCH 30.5 MCHC 32.3 RDW 16.8 Plt Count 145 L MPV 9.4 Neut % (Auto) 70.5 H Lymph % (Auto) 17.6 [place] % (Auto) 8.6 H Eos % (Auto) 2.4 Baso % (Auto) 0.9 Neut # (Auto) 4.7 Lymph # (Auto) 1.2 [place] # (Auto) 0.6 Eos # (Auto) 0.2 Baso # (Auto) 0.1 WBC Differential . Differential Comment Auto diff final Sodium 131 L Potassium 4.1 D Chloride 94 L Carbon Dioxide 24.9 Anion Gap 12 BUN 24 H Creatinine 6.39 H Estimated GFR 9 L Random Glucose 166 H Calcium 8.4 L Total Bilirubin 0.6 AST 25 ALT 14 Alkaline Phosphatase 112 Total Protein 7.0 Albumin 2.7 L Microbiology 09/30/17 15:00 Blood - Peripheral Aerobic Blood Culture - Preliminary No growth in 4 days 09/30/17 15:00 Blood - Peripheral Anaerobic Blood Culture - Preliminary No growth in 4 days 09/30/17 15:12 Blood - Peripheral Aerobic Blood Culture - Preliminary No growth in 4 days 09/30/17 15:12 Blood - Peripheral Anaerobic Blood Culture - Preliminary No growth in 4 days Assessment and Plan - Assessment (1) Osteomyelitis Code(s): M86.9 - Osteomyelitis, unspecified Status: Acute - Plan -npo after midnight -toe amputation with on 10/05 -vascular and IR input read and appreciated -will monitor closely (1) Osteomyelitis Qualifiers: Osteomyelitis type: unspecified type Osteomyelitis location: foot Laterality : left Qualified Code(s): M86.9 - Osteomyelitis, unspecified
[2017-10-05] MEDS: Morphine Inj 4 MG/ML Vial IV.PUSH PRN ×3 (01:47→21:48)
[2017-10-05 05:13] LABS: Hematocrit 31.4 % (39.0-51.0); Hemoglobin 10.4 gm/dL (13.0-17.0); Mean Corpuscular HGB Conc 33.2 % (32.0-36.0); Mean Corpuscular Hemoglobin 30.7 pg (27.0-34.0); Mean Corpuscular Volume 92.4 fL (80.0-100.0); Mean Platelet Volume 9.1 fL (7.0-11.0); Platelet Count 146 th/mm3 (150-450); Red Cell Distribution Width 16.6 % (11.6-17.2); White Blood Count 7.5 th/mm3 (4.0-11.0)
[2017-10-05 05:37] LABS: Calcium 8.6 mg/dL (8.5-10.1); Carbon Dioxide 29.7 meq/L (21.0-32.0); Potassium 3.6 meq/L (3.5-5.1)
--- NOTE | 2017-10-05 10:00 | P.CONWOU ---
History of Present Illness Service: 10/05/17 Consult date: 10/04/17 Requesting Physician: Shreya Gould Reason for Consult: Osteomyelitis Primary Care Provider: Lorelei Choi MD History of Present Illness: Presented to patient's room at 9:45 am. Patient not in bed. Informed by nurse that he is in dialysis. Review of his notes shows that he is scheduled today for amputation by . Will recheck if he needs wound care as he is having an amputation done. PMF - History History Provided By: Patient, Family Member - Medical History Medical History: Medical History (Last Reviewed 10/01/17 @ 11:16 by Shreya Gould MD) Cardiac defibrillator in place Congestive heart failure Dialysis patient Fistula Hypertension Past heart attack - Surgical History Surgical History: Surgical History (Last Reviewed 10/01/17 @ 11:16 by Shreya Gould MD) Hx of cardiac cath - Family History Family History: Family History (Last Reviewed 09/30/17 @ 14:36 by Ce Dowling MD) Father Cancer Mother Cancer Sister Family history of cancer Brother Diabetes Sister Diabetes - Tobacco History Second Hand Smoke Exposure: No Smoking Status: Former smoker Tobacco Type: Cigarettes - Alcohol History How Often Do You Have a Drink Containing Alcohol: Never - Substance Use History Substance History: No History of Abuse - Travel History Recent Travel in the [place] Within the Last 8 Weeks: No Recent Travel Out of the Country Within the Last 8 Weeks: No - Immunization History Tetanus Immunization: Unsure Hx Influenza Vaccine This Season: Yes Medications and Allergies Active Medications: Active Medications Acetaminophen (Tylenol) 650 mg PO Q4H PRN PRN Reason: Temp > 100.4 Acetaminophen (Tylenol) 650 mg PO UNSCH PRN PRN Reason: SEE LABEL COMMENTS Bisacodyl (Dulcolax Supp) 10 mg RECTAL DAILY PRN PRN Reason: SEVERE CONSITIPATION Calcium Acetate (Phoslo) 1,334 mg PO TID [facility] Last Admin: 10/04/17 18:37 Dose: 1,334 mg Carvedilol (Coreg) 3.125 mg PO BID [facility] Last Admin: 10/05/17 09:04 Dose: 3.125 mg Chlorhexidine Gluconate (Chlorhexidine 2% Cloth) 3 pack TOPICAL SPAGHETT[employer] [facility] Stop: 10/06/17 21:32 Clonidine HCl (Catapres) 0.1 mg PO UNSCH PRN PRN Reason: SEE LABEL COMMENTS Diphenhydramine HCl (Benadryl) 25 mg PO UNSCH PRN PRN Reason: SEE LABEL COMMENTS Last Admin: 10/03/17 00:01 Dose: 25 mg Epoetin Ford (Epogen Inj) 5,000 unit IV.PUSH UNSCH PRN PRN Reason: SEE LABEL COMMENTS Last Admin: 10/03/17 13:20 Dose: 5,000 unit Fluoxetine HCl (Prozac) 20 mg PO DAILY [facility] Last Admin: 10/04/17 08:02 Dose: 20 mg Gelatin (Gelfoam 12 Mm/7 Mm Topical) 1 foam TOPICAL PRN PRN PRN Reason: help stop bleeding from site Gentamicin Sulfate (Gentamicin Inj) 20 mg OTHER WITH DIALYSIS PRN PRN Reason: Dwell Gentamycin Lock Heparin Sodium (Porcine) (Heparin Inj) 8,000 units OTHER WITH DIALYSIS PRN PRN Reason: for machine prime Heparin Sodium (Porcine) (Heparin Inj) 1,000 units OTHER WITH DIALYSIS PRN PRN Reason: Dwell Heparin to Fill Catheter Albumin Human (Flexbumin 25% Inj) 100 mls @ 60 mls/hr IV.SIG WITH DIALYSIS PRN PRN Reason: hypotension / volume replace Sodium Chloride (Ns Inj) 1,000 mls @ 200 mls/hr OTHER .Q5H PRN PRN Reason: for dialyzer flush PRN Sodium Chloride (Ns Inj) 1,000 mls @ 0 mls/hr IV.CONT .Q0M PRN PRN Reason: hypotension / volume replace Sodium Chloride (Ns Inj) 1,000 mls @ 0 mls/hr OTHER .Q0M PRN PRN Reason: for prime and rinse back Lactated Ringer's (Lr 1000 Ml Inj) 1,000 mls @ 30 mls/hr IV.SIG .Q24H [facility] Stop: 10/06/17 21:32 Last Admin: 10/05/17 02:32 Dose: Not Given Sodium Chloride (Ns Inj) 500 mls @ 30 mls/hr IV.SIG .Q10H [facility] Stop: 10/06/17 21:32 Lactulose (Lactulose Liq) 30 ml PO DAILY PRN PRN Reason: SEVERE CONSITIPATION Mannitol (Mannitol Inj) 12.5 gm IV.PUSH UNSCH PRN PRN Reason: hypotension / volume replace Metoprolol Tartrate (Lopressor) 25 mg PO SPAGHETTI [employer] [facility] Stop: 10/06/17 21:32 Morphine Sulfate (Morphine Inj) 4 mg IV.PUSH Q3H PRN PRN Reason: PAIN 6-10;IF UNABLE TO TAKE PO Last Admin: 10/02/17 21:36 Dose: 4 mg Morphine Sulfate (Morphine Inj) 2 mg IV.PUSH Q3H PRN PRN Reason: PAIN 3-5; IF UABLE TO TAKE PO Last Admin: 10/05/17 05:07 Dose: 2 mg Naloxone HCl (Narcan Inj) 0.4 mg IV.PUSH UNSCH PRN PRN Reason: SEE LABEL COMMENTS Nitroglycerin (Nitrostat Sl) 0.4 mg SL Q5M PRN PRN Reason: CHEST PAIN Ondansetron HCl (Zofran Inj) 4 mg IV.PUSH Q6H PRN PRN Reason: NAUSEA OR VOMITING Ondansetron HCl (Zofran Inj) 4 mg IV.PUSH UNSCH PRN PRN Reason: NAUSEA OR VOMITING Pantoprazole Sodium (Protonix) 40 mg PO DAILY [facility] Last Admin: 10/04/17 08:02 Dose: 40 mg Povidone Iodine (Betadine 5% Antisepsis Kit) 1 applicatio EACH NARE [employer]HE[employer] [facility] Stop: 10/06/17 21:32 Sennosides (Senokot) 17.2 mg PO Q12H PRN PRN Reason: Moderate Constipation Sodium Chloride (Ns Flush) 5 ml IV.FLUSH PRN PRN PRN Reason: flush each lumen during HD Temazepam (Restoril) 15 mg PO HS PRN PRN Reason: INSOMNIA Allergies Allergy/AdvReac Type Severity Reaction Status Date / Time neomycin Allergy Severe Anaphylaxis Verified 10/03/17 14:34 Home Medications Medication Instructions Recorded Confirmed Type carvedilol 6.25 mg PO BID 09/30/17 09/30/17 History fluoxetine 20 mg PO DAILY 09/30/17 09/30/17 History folic acid 1 mg PO DAILY 09/30/17 09/30/17 History furosemide 20 mg PO DAILY 09/30/17 09/30/17 History isosorbide mononitrate 30 mg PO DAILY 09/30/17 09/30/17 History mirtazapine 15 mg PO DAILY 09/30/17 09/30/17 History pantoprazole 40 mg PO DAILY 09/30/17 09/30/17 History vit B comp no.0-frsva-U-biotin 1 tab PO DAILY 09/30/17 09/30/17 History [[facility] Rx] warfarin 5 mg PO DAILY 09/30/17 09/30/17 History Physical Exam Vital signs: Vital Signs 10/04/17 10:48 10/04/17 11:47 10/04/17 12:49 Temperature 98.7 F 97.2 F L Pulse Rate 60 60 Respiratory Rate 14 18 Blood Pressure 90/53 L 97/52 L Pulse Oximetry 99 99 10/04/17 16:49 10/04/17 17:48 10/04/17 20:00 Temperature 97.1 F L 97.2 F L Pulse Rate 61 65 Respiratory Rate 18 18 Blood Pressure 98/56 L 108/50 L Pulse Oximetry 99 99 99 10/04/17 20:30 10/05/17 00:00 10/05/17 00:10 Temperature 98.0 F Pulse Rate 66 65 65 Respiratory Rate 17 Blood Pressure 103/45 L Pulse Oximetry 93 L 10/05/17 04:00 10/05/17 04:05 10/05/17 08:00 Temperature 97.2 F L 97.1 F L Pulse Rate 63 65 72 Respiratory Rate 17 14 Blood Pressure 102/49 L 106/58 L Pulse Oximetry 98 92 L Intake & Output 10/04/17 10/05/17 10/05/17 18:59 06:59 18:59 Intake Total 480 / 480 Balance 480 / 480 Weight 79.5 kg Intake: Oral 480 / 480 Other: # Voids 3 0 Wound/Pressure Injury - Wound Left Toe - 3rd Digit Wound Assessment: Ongoing Wound Type: Pressure Injury Is This a Chronic Wound: Yes Wound Bed Appearance: Necrotic Drainage Amount: None Drainage Odor: Slight Odor Dressing Status: Open to Air Assessment and Plan - Assessment (1) Osteomyelitis Code(s): M86.9 - Osteomyelitis, unspecified Status: Acute Plan: Patient scheduled for left third toe amputation today. Will follow up with patient if needed. (1) Osteomyelitis Qualifiers: Osteomyelitis type: unspecified type Osteomyelitis location: foot Laterality : left Qualified Code(s): M86.9 - Osteomyelitis, unspecified
--- NOTE | 2017-10-05 10:53 | P.PNFP ---
Subjective Interval history: Patient seen and examined this morning while in dialysis. He states that he is doing well. No pain, no fever/chills, no CP, no shortness of breath, urinating and stooling. He is going to surgery this afternoon. <Ayde Quiroz - 10/05/17 11:59> Results - Labs Result diagrams: 10/05/17 04:29 10/05/17 04:29 <Shreya Gould - 10/05/17 13:01> Abnormal lab results 10/05/17 10/05/17 Range/Units 04:29 04:29 RBC 3.40 L (4.50-5.90) mil/mm3 Hgb 10.4 L (13.0-17.0) gm/dL Hct 31.4 L (39.0-51.0) % Plt Count 146 L (150-450) th/mm3 Sodium 134 L (136-145) meq/L Chloride 92 L (98-107) meq/L BUN 32 H (7-18) mg/dL Creatinine 7.69 H (0.60-1.30) mg/dL Estimated GFR 7 L (>89) mL/min Short CBC 10/05/17 Range/Units 04:29 WBC 7.5 (4.0-11.0) th/mm3 Hgb 10.4 L (13.0-17.0) gm/dL Hct 31.4 L (39.0-51.0) % Plt Count 146 L (150-450) th/mm3 BMP 10/05/17 04:29 Sodium 134 L Potassium 3.6 Chloride 92 L Carbon Dioxide 29.7 BUN 32 H Creatinine 7.69 H Calcium 8.6 <Shreya Golud - 10/05/17 13:01> Abnormal lab results 10/05/17 10/05/17 Range/Units 04:29 04:29 RBC 3.40 L (4.50-5.90) mil/mm3 Hgb 10.4 L (13.0-17.0) gm/dL Hct 31.4 L (39.0-51.0) % Plt Count 146 L (150-450) th/mm3 Sodium 134 L (136-145) meq/L Chloride 92 L (98-107) meq/L BUN 32 H (7-18) mg/dL Creatinine 7.69 H (0.60-1.30) mg/dL Estimated GFR 7 L (>89) mL/min Short CBC 10/05/17 Range/Units 04:29 WBC 7.5 (4.0-11.0) th/mm3 Hgb 10.4 L (13.0-17.0) gm/dL Hct 31.4 L (39.0-51.0) % Plt Count 146 L (150-450) th/mm3 BMP 10/05/17 04:29 Sodium 134 L Potassium 3.6 Chloride 92 L Carbon Dioxide 29.7 BUN 32 H Creatinine 7.69 H Calcium 8.6 <Adam Quirozin G - 10/05/17 10:53> Physical Exam Vital signs: Vital Signs 10/04/17 16:49 10/04/17 17:48 10/04/17 20:00 Temperature 97.1 F L 97.2 F L Pulse Rate 61 65 Respiratory Rate 18 18 Blood Pressure 98/56 L 108/50 L Pulse Oximetry 99 99 99 10/04/17 20:30 10/05/17 00:00 10/05/17 00:10 Temperature 98.0 F Pulse Rate 66 65 65 Respiratory Rate 17 Blood Pressure 103/45 L Pulse Oximetry 93 L 10/05/17 04:00 10/05/17 04:05 10/05/17 08:00 Temperature 97.2 F L 97.1 F L Pulse Rate 63 65 72 Respiratory Rate 17 14 Blood Pressure 102/49 L 106/58 L Pulse Oximetry 98 92 L Intake & Output 10/04/17 10/05/17 10/05/17 18:59 06:59 18:59 Intake Total 480 / 480 Output Total 1500 / 1500 Balance 480 / 480 -1500 / -1500 Weight 79.5 kg Intake: Oral 480 / 480 Output: Hemodialysis Amount 1500 / 1500 Other: # Voids 3 0 <Shreya Gould - 10/05/17 13:01> Vital Signs 10/04/17 11:47 10/04/17 12:49 10/04/17 16:49 Temperature 98.7 F 97.2 F L 97.1 F L Pulse Rate 60 60 61 Respiratory Rate 14 18 18 Blood Pressure 90/53 L 97/52 L 98/56 L Pulse Oximetry 99 99 10/04/17 17:48 10/04/17 20:00 10/04/17 20:30 Temperature 97.2 F L Pulse Rate 65 66 Respiratory Rate 18 Blood Pressure 108/50 L Pulse Oximetry 99 99 10/05/17 00:00 10/05/17 00:10 10/05/17 04:00 Temperature 98.0 F 97.2 F L Pulse Rate 65 65 63 Respiratory Rate 17 17 Blood Pressure 103/45 L 102/49 L Pulse Oximetry 93 L 98 10/05/17 04:05 10/05/17 08:00 Temperature 97.1 F L Pulse Rate 65 72 Respiratory Rate 14 Blood Pressure 106/58 L Pulse Oximetry 92 L Intake & Output 10/04/17 10/05/17 10/05/17 18:59 06:59 18:59 Intake Total 480 / 480 Balance 480 / 480 Weight 79.5 kg Intake: Oral 480 / 480 Other: # Voids 3 0 <Adam Quirozthalia Augustine - 10/05/17 10:53> Narrative: GENERAL: White male laying in bed in hemodialysis, in no acute distress SKIN: Warm and dry. HEAD: Atraumatic. Normocephalic. EYES: Pupils equal and round. No scleral icterus. No injection or drainage. ENT: No nasal bleeding or discharge. Mucous membranes pink and moist. 5x5cm soft mass at left neck. NECK: Trachea midline. No JVD. CARDIOVASCULAR: Regular rate and rhythm. RESPIRATORY: No accessory muscle use. Clear to auscultation. Breath sounds equal bilaterally. GASTROINTESTINAL: Abdomen soft, non-tender, nondistended. MUSCULOSKELETAL: Extremities without clubbing, cyanosis, or edema. No obvious deformities. Left foot: 3rd digit with a necrotic ulcer on the dorsal aspect with erythema and nonpalpable pulses. NEUROLOGICAL: Awake and alert. No obvious cranial nerve deficits. Motor grossly within normal limits. Normal speech. PSYCHIATRIC: Appropriate mood and affect; insight and judgment normal. <RichieAyde Fawn - 10/05/17 11:59> 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 Code(s): L97.904 - Non-pressure chronic ulcer of unspecified part of unspecified lower leg with necrosis of bone Status: Acute (2) ESRD (end stage renal disease) Code(s): N18.6 - End stage renal disease Status: Chronic (3) Hypertension Code(s): I10 - Essential (primary) hypertension Status: Chronic (4) Anxiety Code(s): F41.9 - Anxiety disorder, unspecified Status: Chronic (5) Congestive heart failure Code(s): I50.9 - Heart failure, unspecified Status: Chronic (6) Nutrition, metabolism, and development symptoms Code(s): R63.8 - Other symptoms and signs concerning food and fluid intake Status: Acute (7) DVT prophylaxis Status: Acute <Shreya Gould - 10/05/17 13:01> 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 Patient afebrile, VSS, no leukocytosis, x-ray does not show any signs of osteomyelitis. Blood cultures negative x 48 hrs CTA runoff 10/02: 1. Severe diffuse arterial atherosclerotic calcifications with no significant aortic or iliac inflow stenosis. 2. Moderate to severe focal stenosis of the right SFA in the distal thigh. 3. Focal moderate stenosis of the left SFA in the distal thigh. 4. Severely diseased and diffusely calcified tibial arteries precluding definitive evaluation. However, there appeared to be multiple tandem severe stenoses/occlusions in the tibial arteries bilaterally. Patient's symptoms are therefore primarily due to runoff disease. Podiatry consulted, appreciate recommendations. -Going to surgery today for toe amputation Vascular surgery -Unable to proceed with balloon dilatation of SFAs due to severe vessels Tylenol as needed for pain control. Morphine for breakthrough. (2) ESRD (end stage renal disease) Code(s): N18.6 - End stage renal disease Status: Chronic Plan: On HD as an outpatient Neurology consulted, appreciate recommendations -Periodic hemodialysis Avoid any nephrotoxic medications Renally dose medications (3) Hypertension Code(s): I10 - Essential (primary) hypertension Status: Chronic Plan: Vital signs stable. Continue home medications: -Carvedilol decreased to 3.125 mg p.o. twice daily (4) Anxiety Code(s): F41.9 - Anxiety disorder, unspecified Status: Chronic Plan: Continue home medications. -Fluoxetine 20 mg p.o. daily (5) Congestive heart failure Code(s): I50.9 - Heart failure, unspecified Status: Chronic Plan: Currently stable. On Lasix 40 mg at home, currently not giving it since Lasix dose is based on dialysis routine. He is not fluid overloaded at this time. (6) Nutrition, metabolism, and development symptoms Code(s): R63.8 - Other symptoms and signs concerning food and fluid intake Status: Acute Plan: Fluids: Encourage p.o. Electrolytes: Monitor and replete as needed. Diet. NPO (7) DVT prophylaxis Status: Acute Plan: SCDs only at this point. <Ayde Quiroz - 10/05/17 11:39> - Assessment and Plan 71 yo male with PMH of CVD, ESRD presenting with swollen/necrotic left 3rd toe. Podiatry, vascular surgery, nephrology consulted. <Ayde Quiroz - 10/05/17 11:59> Discussed Condition With: Dr. Mitchell, Dr. Gould <Ayde Quiroz - 10/05/17 11:59> Discharge Planning: pending clinical course and clearance by specialists <Ayde Quiroz - 10/05/17 11:59> - Attending Attestation The exam, history, and the medical decision-making described in the above note were completed with the assistance of the resident physician. I reviewed and agree with the findings presented. I attest that I did not have a [id number] encounter with the patient on the same day because he was having a procedure done., and personally performed and documented my assessment and findings in the medical record. 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 <Shreya Gould - Last Filed: 10/05/17 13:01> 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 <Ayde Quiroz - Last Filed: 10/05/17 11:39> 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 <Shreya Gould - Last Filed: 10/05/17 13:01> 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
--- NOTE | 2017-10-05 11:00 | P.PNNP ---
Subjective Interval history: Seen during hemodialysis tolerating well, will remove fluid as tolerated. Plans for OR today for toe amputation. Physical Exam Vital signs: Vital Signs 10/04/17 11:47 10/04/17 12:49 10/04/17 16:49 Temperature 98.7 F 97.2 F L 97.1 F L Pulse Rate 60 60 61 Respiratory Rate 14 18 18 Blood Pressure 90/53 L 97/52 L 98/56 L Pulse Oximetry 99 99 10/04/17 17:48 10/04/17 20:00 10/04/17 20:30 Temperature 97.2 F L Pulse Rate 65 66 Respiratory Rate 18 Blood Pressure 108/50 L Pulse Oximetry 99 99 10/05/17 00:00 10/05/17 00:10 10/05/17 04:00 Temperature 98.0 F 97.2 F L Pulse Rate 65 65 63 Respiratory Rate 17 17 Blood Pressure 103/45 L 102/49 L Pulse Oximetry 93 L 98 10/05/17 04:05 10/05/17 08:00 Temperature 97.1 F L Pulse Rate 65 72 Respiratory Rate 14 Blood Pressure 106/58 L Pulse Oximetry 92 L Intake & Output 10/04/17 10/05/17 10/05/17 18:59 06:59 18:59 Intake Total 480 / 480 Balance 480 / 480 Weight 79.5 kg Intake: Oral 480 / 480 Other: # Voids 3 0 Narrative: GENERAL: Alert and oriented. HEENT: normocephalic, atraumatic HEART: RRR, S1/S2, murmur present LUNGS: clear to auscultation bilaterally. Regular breathing, no accessory muscle use. ABDOMEN: soft, nontender. + BS, no masses EXTREMITIES: Absent edema, non palpable pulses FOOT EXAM : Left middle toe ulcer on the dorsal aspect with erythema and nonpalpable pulses. Necrotic in appearance. Several lesions on multiple toes bilaterally. Assessment and Plan - Assessment (1) ESRD (end stage renal disease) Code(s): N18.6 - End stage renal disease Status: Chronic Plan: : End stage renal disease on regular scheduled days are Monday, , and Monday Protect left upper extremity and avoid IV's and BP measurements. Avoid Gadolinium. High protein, low potassium and phosphorus diet. Monitor labs including phosphorus intermittently. Seen during hemodialysis 3 K bath, will remove fluid as tolerated. Plans for OR today. 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 Plans for OR today (4) Hypertension Code(s): I10 - Essential (primary) hypertension Status: Chronic Qualifiers: Hypertension type: renovascular hypertension Qualified Code(s): I15.0 - Renovascular hypertension Plan: Will monitor, coreg decreased yesterday (5) Anemia Code(s): D64.9 - Anemia, unspecified Status: Acute Plan: HGB stable at 10.4 Epogen with dialysis - Plan #: OTHER PROBLEMS: Ulcer of the lower extremity, with infection, anxiety PLAN: Defer to hospitalist/primary care team
[2017-10-05] MEDS ORDERED: Lidocaine PF 1% Inj 5 ML Syringe INFILTRATN ONE (12:00)
[2017-10-05] MEDS ORDERED: Phenylephrine/NS 1000 MCG/10ML Syringe IV.PUSH ONE (12:00)
[2017-10-05] MEDS ORDERED: Bupivacaine PF 0.25% Inj 30 ML Vial ONE (12:50)
[2017-10-05] MEDS: Calcium Acetate 667 MG Capsule PO SCH ×3 (13:31→17:43)
--- NOTE | 2017-10-05 13:31 | P.PNPOD ---
Subjective Interval history: Patient seen bedside in preop. Denies any N,V,F,Ch. Agrees with planned procedure, Left third digit amputation at metatarsal phalangeal joint. Physical Exam Vital signs: Vital Signs 10/04/17 16:49 10/04/17 17:48 10/04/17 20:00 Temperature 97.1 F L 97.2 F L Pulse Rate 61 65 Respiratory Rate 18 18 Blood Pressure 98/56 L 108/50 L Pulse Oximetry 99 99 99 10/04/17 20:30 10/05/17 00:00 10/05/17 00:10 Temperature 98.0 F Pulse Rate 66 65 65 Respiratory Rate 17 Blood Pressure 103/45 L Pulse Oximetry 93 L 10/05/17 04:00 10/05/17 04:05 10/05/17 08:00 Temperature 97.2 F L 97.1 F L Pulse Rate 63 65 72 Respiratory Rate 17 14 Blood Pressure 102/49 L 106/58 L Pulse Oximetry 98 92 L Intake & Output 10/04/17 10/05/17 10/05/17 18:59 06:59 18:59 Intake Total 480 / 480 Output Total 1500 / 1500 Balance 480 / 480 -1500 / -1500 Weight 79.5 kg Intake: Oral 480 / 480 Output: Hemodialysis Amount 1500 / 1500 Other: # Voids 3 0 Narrative: Lower extremity physical exam: Vascular: Dorsalis pedis nonpalpable, posterior tibial nonpalpable. Capillary refill time within normal limits to digits 5 bilateral foot. Edema present bilateral foot and ankle Neuro: Gross sensation intact to bilateral lower extremity. Pinpoint sensation decreased bilateral lower extremity. No hyperalgesia noted to bilateral lower extremity Dermatology: Left third digit with exposed proximal phalanx and surrounding necrotic tissue, no purulent drainage upon compression no ascending cellulitis noted to metatarsophalangeal joint. Multiple eschars to distal aspect of digits 1 through 5 bilaterally. Musculoskeletal: No tenderness to palpation. Medications and Allergies Active Medications: Active Medications Acetaminophen (Tylenol) 650 mg PO Q4H PRN PRN Reason: Temp > 100.4 Acetaminophen (Tylenol) 650 mg PO UNSCH PRN PRN Reason: SEE LABEL COMMENTS Bisacodyl (Dulcolax Supp) 10 mg RECTAL DAILY PRN PRN Reason: SEVERE CONSITIPATION Calcium Acetate (Phoslo) 1,334 mg PO TID SVEN Last Admin: 10/04/17 18:37 Dose: 1,334 mg Carvedilol (Coreg) 3.125 mg PO BID [facility] [place] Last Admin: 10/05/17 09:04 Dose: 3.125 mg Chlorhexidine Gluconate (Chlorhexidine 2% Cloth) 3 pack [employer]IST [facility] [place] Stop: 10/06/17 21:32 Clonidine HCl (Catapres) 0.1 mg PO UNSCH PRN PRN Reason: SEE LABEL COMMENTS Diphenhydramine HCl (Benadryl) 25 mg PO UNSCH PRN PRN Reason: SEE LABEL COMMENTS Last Admin: 10/03/17 00:01 Dose: 25 mg Epoetin Ford (Epogen Inj) 5,000 unit IV.PUSH UNSCH PRN PRN Reason: SEE LABEL COMMENTS Last Admin: 10/03/17 13:20 Dose: 5,000 unit Fluoxetine HCl (Prozac) 20 mg PO DAILY [facility] [place] Last Admin: 10/04/17 08:02 Dose: 20 mg Gelatin (Gelfoam 12 Mm/7 Mm Topical) 1 foam TOPICAL PRN PRN PRN Reason: help stop bleeding from site Gentamicin Sulfate (Gentamicin Inj) 20 mg OTHER WITH DIALYSIS PRN PRN Reason: Dwell Gentamycin Lock Heparin Sodium (Porcine) (Heparin Inj) 8,000 units OTHER WITH DIALYSIS PRN PRN Reason: for machine prime Heparin Sodium (Porcine) (Heparin Inj) 1,000 units OTHER WITH DIALYSIS PRN PRN Reason: Dwell Heparin to Fill Catheter Albumin Human (Flexbumin 25% Inj) 100 mls @ 60 mls/hr IV.SIG WITH DIALYSIS PRN PRN Reason: hypotension / volume replace Sodium Chloride (Ns Inj) 1,000 mls @ 200 mls/hr OTHER .Q5H PRN PRN Reason: for dialyzer flush PRN Sodium Chloride (Ns Inj) 1,000 mls @ 0 mls/hr IV.CONT .Q0M PRN PRN Reason: hypotension / volume replace Sodium Chloride (Ns Inj) 1,000 mls @ 0 mls/hr OTHER .Q0M PRN PRN Reason: for prime and rinse back Lactated Ringer's (Lr 1000 Ml Inj) 1,000 mls @ 30 mls/hr IV.SIG .Q24H [facility] [place] Stop: 10/06/17 21:32 Last Admin: 10/05/17 02:32 Dose: Not Given Sodium Chloride (Ns Inj) 500 mls @ 30 mls/hr IV.SIG .Q10H [facility] [place] Stop: 10/06/17 21:32 Lactulose (Lactulose Liq) 30 ml PO DAILY PRN PRN Reason: SEVERE CONSITIPATION Mannitol (Mannitol Inj) 12.5 gm IV.PUSH UNSCH PRN PRN Reason: hypotension / volume replace Metoprolol Tartrate (Lopressor) 25 mg PO [employer] SPECIAL[employer] [facility] [place] Stop: 10/06/17 21:32 Morphine Sulfate (Morphine Inj) 4 mg IV.PUSH Q3H PRN PRN Reason: PAIN 6-10;IF UNABLE TO TAKE PO Last Admin: 10/02/17 21:36 Dose: 4 mg Morphine Sulfate (Morphine Inj) 2 mg IV.PUSH Q3H PRN PRN Reason: PAIN 3-5; IF UABLE TO TAKE PO Last Admin: 10/05/17 05:07 Dose: 2 mg Naloxone HCl (Narcan Inj) 0.4 mg IV.PUSH UNSCH PRN PRN Reason: SEE LABEL COMMENTS Nitroglycerin (Nitrostat Sl) 0.4 mg SL Q5M PRN PRN Reason: CHEST PAIN Ondansetron HCl (Zofran Inj) 4 mg IV.PUSH Q6H PRN PRN Reason: NAUSEA OR VOMITING Ondansetron HCl (Zofran Inj) 4 mg IV.PUSH UNSCH PRN PRN Reason: NAUSEA OR VOMITING Pantoprazole Sodium (Protonix) 40 mg PO DAILY [facility] [place] Last Admin: 10/04/17 08:02 Dose: 40 mg Povidone Iodine (Betadine 5% Antisepsis Kit) 1 applicatio EACH [employer] SPECIALIST [facility] [place] Stop: 10/06/17 21:32 Sennosides (Senokot) 17.2 mg PO Q12H PRN PRN Reason: Moderate Constipation Sodium Chloride (Ns Flush) 5 ml IV.FLUSH PRN PRN PRN Reason: flush each lumen during HD Temazepam (Restoril) 15 mg PO HS PRN PRN Reason: INSOMNIA Allergies Allergy/AdvReac Type Severity Reaction Status Date / Time neomycin Allergy Severe Anaphylaxis Verified 10/03/17 14:34 Home Medications Medication Instructions Recorded Confirmed Type carvedilol 6.25 mg PO BID 09/30/17 09/30/17 History fluoxetine 20 mg PO DAILY 09/30/17 09/30/17 History folic acid 1 mg PO DAILY 09/30/17 09/30/17 History furosemide 20 mg PO DAILY 09/30/17 09/30/17 History isosorbide mononitrate 30 mg PO DAILY 09/30/17 09/30/17 History mirtazapine 15 mg PO DAILY 09/30/17 09/30/17 History pantoprazole 40 mg PO DAILY 09/30/17 09/30/17 History vit B comp no.0-[id number]-U-biotin 1 tab PO DAILY 09/30/17 09/30/17 History [[facility] Rx] warfarin 5 mg PO DAILY 09/30/17 09/30/17 History Results - Labs CBC & Chem 7: 10/05/17 04:29 10/05/17 04:29 Laboratory Results - last 24 hr 10/05/17 10/05/17 04:29 04:29 WBC 7.5 RBC 3.40 L Hgb 10.4 L Hct 31.4 L MCV 92.4 MCH 30.7 MCHC 33.2 RDW 16.6 Plt Count 146 L MPV 9.1 Sodium 134 L Potassium 3.6 Chloride 92 L Carbon Dioxide 29.7 Anion Gap 12 BUN 32 H Creatinine 7.69 H Estimated GFR 7 L Random Glucose 89 Calcium 8.6 Microbiology 09/30/17 15:00 Blood - Peripheral Aerobic Blood Culture - Final No growth in 5 days 09/30/17 15:00 Blood - Peripheral Anaerobic Blood Culture - Final No growth in 5 days 09/30/17 15:12 Blood - Peripheral Aerobic Blood Culture - Final No growth in 5 days 09/30/17 15:12 Blood - Peripheral Anaerobic Blood Culture - Final No growth in 5 days Assessment and Plan - Assessment (1) Osteomyelitis Code(s): M86.9 - Osteomyelitis, unspecified Status: Acute - Plan 71-year-old male with left third digit exposed bone, osteomyelitis Patient to OR today for left third digit amputation at metatarsal phalangeal joint Consent obtained and signed Patient agreement with procedure Left lower extremity marked Discussed risks and complications associated with procedure including but not limited to limb loss secondary to decreased vascularity (1) Osteomyelitis Qualifiers: Osteomyelitis type: unspecified type Osteomyelitis location: foot Laterality : left Qualified Code(s): M86.9 - Osteomyelitis, unspecified
[2017-10-05] MEDS: FLUoxetine 20 MG Capsule PO SCH (13:32)
[2017-10-05] MEDS ORDERED: CEFAZOLIN IV.SIG ONE (13:33)
[2017-10-05] MEDS ORDERED: Ketamine Inj 50 MG/5 ML Syringe IV.PUSH ONE (13:41)
[2017-10-05] MEDS ORDERED: Misc Info for Pharmacy OTHER STA (14:41)
--- NOTE | 2017-10-05 14:41 | P.PCN ---
Date of procedure: 10/05/17 Pre-op diagnosis: Left thrid digit exposed bone with osteomyelitis Post-op diagnosis: same Procedure: Left third digit amputation at metatarsal phalangeal joint Anesthesia: MAC Surgeon: Leonie Felipe Estimated blood loss (mL): 5 Pathology: other (Left third digit to pathology, left foot soft tissue to micro , Left third digit proximal phalanx base clearing margin for pathology and micro ) Condition: stable Disposition: PACU (with VSS and NVS intact to the left foot)
--- NOTE | 2017-10-05 15:46 | MR ---
cc: Leonie Felipe DPM DATE: 10/05/2017 SURGEON: Leonie Felipe DPM RECORDING STUDIO SET UP WORKER: None. 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 PROCEDURE: Left third digit amputation metatarsophalangeal joint. ANESTHESIA: IV sedation LOSS: 10 mL total. HEMOSTASIS: None. ESTIMATED BLOOD LOSS: Less than 5 mL MATERIALS: 3-0 vicryl and 3-0 nylon. INJECTABLES: A 0.5% Marcaine plain, 10 mL infiltrated about left foot; 10 mL total Cazares block fashion. COMPLICATIONS: None. INDICATIONS FOR PROCEDURE: The patient is a 71-year-old male, who presented to the emergency with swollen necrotic left third digit. He states that he stubbed his toe on the living room stairs about a month ago, but he did not followup or have anyone check on the toe. He presents with pain, swelling, erythema and exposed bone to the proximal interphalangeal joint. The patient was evaluated by vascular surgery, who at this time is not recommending any intervention as all of his disease is small vessel and below the level of trifurcation. Interventional radiology was unable to balloon or dilate any vessels as the angiogram revealed the patient had multilevel ratty stenosis of the SFA. His trifurcation vessels were also severely diseased and the patient is perfusing both of the lower extremities with collateral flow. Vascular surgery recommended proceeding with amputation and at this time the patient understands all complications, risks, alternatives and benefits including possible more proximal limb loss, including [id number] amputation secondary to vascular disease. DESCRIPTION OF PROCEDURE: The patient was brought back to the operating room and IV sedation was then administered. Following IV sedation, the left foot was prepped and draped in the usual sterile fashion; 10 mL 0.25% Marcaine plain was infiltrated about the left foot. Racquet incision was made over the third metatarsophalangeal joint. This incision was deepened through skin and subcutaneous tissue with care to retract all vital neurovascular structures. Minimal bleeding was noted. All medial collateral and plantar attachments to the proximal phalanx were transected and the third digit was passed off the field. A proximal clean margin of base of proximal phalanx was sent to pathology and micro. The left third digit was sent to Pathology. Site was copiously irrigated. Soft tissue was sent to micro post-irrigation. There was noted to be no lesions to the third metatarsal head. Deep soft tissue was closed with 3-0 Vicryl. Skin was closed with 3-0 nylon, Adaptic, 4 x 4s. Natan and Lexa were then placed on the left foot. The patient tolerated procedure and anesthesia well. He was transferred from the OR to PACU with vital signs stable and neurovascular status intact to the left foot. The patient will remain inhouse and we will reevaluate wound healing tomorrow. Will follow surgical micro and pathology. YOSEPH Encarnacion/collin , 02:38 PM , 02:49 PM ROBERT
--- NOTE | 2017-10-05 16:32 | XR ---
EXAM DATE: 10/05/2017 3:53 PM EDT AGE/SEX: 71 years / Male INDICATIONS: Post op surgery left foot. CLINICAL DATA: This is the patient's initial encounter. Patient reports that signs and symptoms have been present for 1 day and indicates a pain score of 4/10. MEDICAL/SURGICAL HISTORY: None. Defibrillator. [place] [facility] [place] 09/30/2017. . FINDINGS: 3 views of the left foot demonstrate no acute fracture or dislocation. The third digit is absent. The re is soft tissue air in the adjacent soft tissues. Lisfranc joint appears intact. No radiopaque fore ign body is identified. Severe small vessel arterial or calcification is present. There is mild osteo arthritis at the first metatarsophalangeal joint. Enthesophytes are present on the posterior and plan tar aspect of the calcaneus. CONCLUSION: 1. Changes consistent with interval amputation of the third digit. There is soft tissue air in the a djacent soft tissues likely postsurgical in etiology. 2. Severe small vessel arterial calcification. Electronically signed by: Bull Bolivar MD 10/05/2017 4:31 PM EDT
--- NOTE | 2017-10-06 02:05 | P.PNADD ---
Addendum to Inpatient Note Additional information: S: [place] called about 1:30. Resident team responded. Nursing reports that patient became short of breath and seemed to be in distress clutching at her arm. At the time the pulse ox was unable to get a read. He was not having chest pain, lightheadedness, syncope. Nursing reports that she did hear fine crackles bilaterally at the bases and so she called M[facility]. When resident team arrived patient was sitting in bed resting comfortably. He denied shortness of breath, believed his breathing had improved to about his baseline. Pulse ox was reading 95-96% on 3 L of oxygen nasal cannula. He denies chest pain, dizziness, lightheadedness, nausea, vomiting. Patient is postop day 0 from a toe amputation. Patient has history of ESRD on dialysis and CHF. O: Vital signsBP 102/58, HR 78 bpm, T 97.7, RR 20, SPO2 95% on 3 L nasal cannula General: Patient sitting comfortably in bed no acute distress Cardiovascular: Systolic murmur present S1-S2 auscultated. RRR. Respiratory: Clear to auscultation bilaterally. No accessory muscle use. Equal breath sounds bilaterally. AP: Pulmonary edema? Developing pneumonia? Postop atelectasis and dyspnea? Chest x-ray Duo nebs every 6 as needed Incentive spirometry EKG
--- NOTE | 2017-10-06 02:42 | XR ---
EXAM DATE: 10/06/2017 2:29 AM EDT AGE/SEX: 71 years / Male INDICATIONS: Short of breath. CLINICAL DATA: This is the patient's subsequent encounter. Patient reports that signs and symptoms h ave been present for 1 day and indicates a pain score of 5/10. MEDICAL/SURGICAL HISTORY: Cardiovascular disease. Pacemaker. COMPARISON: No prior exams available for comparison. FINDINGS: There is a pacing device seen in the right chest. The cardiac silhouette is enlarged. There is increa sed hazy density seen over the left lung. Right lung is clear. CONCLUSION: Cardiomegaly. Increased density at the left lung likely related to some underlying consolidation or atelectasis.. Electronically signed by: Bull Looney MD 10/06/2017 2:41 AM EDT
[2017-10-06] MEDS: Morphine Inj 4 MG/ML Vial IV.PUSH PRN ×2 (03:54→08:51)
[2017-10-06 06:17] LABS: Baso # (Auto) 0.1 th/mm3 (0.0-0.2); Eos # (Auto) 0.1 th/mm3 (0.0-0.4); Eos % (Auto) 2.1 % (0.0-4.0); Hematocrit 32.9 % (39.0-51.0); Hemoglobin 10.6 gm/dL (13.0-17.0); Lymph % (Auto) 14.5 % (9.0-44.0); Mean Corpuscular HGB Conc 32.1 % (32.0-36.0); Mean Corpuscular Hemoglobin 30.6 pg (27.0-34.0); Mean Corpuscular Volume 95.4 fL (80.0-100.0); Mean Platelet Volume 9.1 fL (7.0-11.0); Mono # (Auto) 0.6 th/mm3 (0.0-0.9); Mono % (Auto) 8.4 % (0.0-8.0); Neut # (Auto) 5.3 th/mm3 (1.8-7.7); Platelet Count 144 th/mm3 (150-450); Red Blood Count 3.45 mil/mm3 (4.50-5.90); Red Cell Distribution Width 16.9 % (11.6-17.2); White Blood Count 7.1 th/mm3 (4.0-11.0)
[2017-10-06 06:51] LABS: Alanine Aminotransferase 11 U/L (12-78); Albumin 2.7 g/dL (3.4-5.0); Alkaline Phosphatase 107 U/L (45-117); Anion Gap 12 meq/L (5-15); Aspartate Aminotransferase 18 U/L (15-37); Blood Urea Nitrogen 20 mg/dL (7-18); Calcium 8.9 mg/dL (8.5-10.1); Carbon Dioxide 27.9 meq/L (21.0-32.0); Chloride 95 meq/L (98-107); Glomerular Filtration Rate 10 mL/min (>89); Glucose,Random 115 mg/dL (74-106); Sodium 135 meq/L (136-145); Total Protein 6.9 g/dL (6.4-8.2)
--- NOTE | 2017-10-06 08:17 | IR ---
EXAM DATE: 10/03/2017 4:19 PM EDT AGE/SEX: 71 years / Male INDICATIONS: Patient with history of peripheral vascular disease in need of bilateral lower extremit y angiogram. CLINICAL DATA: This is the patient's initial encounter. Patient reports that signs and symptoms have been present for 1 month and indicates a pain score of 0/10. MEDICAL/SURGICAL HISTORY: CHF, HTN, MT, Dialysis Cardiac cath, Cardiac defibrillator COMPARISON: No prior exams available for comparison. FLUORO TIME (min): 5.5 IMAGE SERIES: 11 ACCESS SITE: Right femoral artery SEDATION TIME (min): 45 CONTRAST (cc): 65cc Visipaque (iodixanol) MEDICATION(S): 1mg midazolam (Versed) IV 50mcg fentanyl (Sublimaze) IV DEVICE(S): Right common femoral artery Syvek pad . . PROCEDURE : 1. Ultrasound-guided puncture of the access site. 2. Conscious sedation with continuous EKG and Oximetry monitoring. 3. Angiography of the 4. Angiography of the 5. Angiography of the The risks, benefits and alternatives to the procedure were explained and verbal and written consent w as obtained. The site was prepped in sterile fashion. Full sterile technique was used, including ca p, mask, sterile gloves and gown and a large sterile sheet. Hand hygiene and 2% chlorhexidine and/or betadine/alcohol prep was utilized per protocol for cutaneous antisepsis. Sterile gel and sterile p robe cover were utilized for ultrasound guidance. The skin and subcutaneous tissues were infiltrated with local anesthetic solution. With ultrasound and fluoroscopic guidance the right common femoral artery was punctured and a vascula r sheath was placed. A 0.035 angle Glidewire and Omni flush catheter were advanced over the aortic bifurcation and down in to the left common femoral. Runoff to the left leg was performed. The catheter was withdrawn into the distal right external iliac and runoff to the right lower extremity was performed. Results: Left leg: The common femoral, profunda femoral and superficial femoral demonstrates scattered moderat e atherosclerotic plaquing but no high-grade lesions are identified. The popliteal is adequate in nadja iber above the level the knee. Distally, there is a very high-grade stenosis at the origin of the ant erior tibial and tibioperoneal trunk. The anterior tibial occludes at its origin. The posterior tibia l is occluded at its origin. There is a small, heavily diseased peroneal which provides inflow down t o the level the ankle. Distally, there is only threadlike, heavily diseased collateral circulation in to the foot. Right leg: The common femoral, profunda femoral and superficial femoral are diffusely diseased with s ome scattered areas of mild stenosis. There are no high-grade lesions identified. The popliteal is ad equate in caliber above and below the knee. Distally, there is severe small vessel disease with occlu brenda of the anterior and posterior tibial. There is a threadlike peroneal which is heavily diseased b ut patent down to the ankle. Distally, there is reconstitution of a heavily diseased, very small post erior tibial just above the ankle. The puncture site was closed with manual pressure and hemostasis was obtained. The patient tolerated the procedure well and there were no complications. Conscious sedation was performed with the prescribed dosages and duration as above in the presence of an independent trained radiology nurse to assist in the monitoring of the patient. EKG and oximetry remained stable throughout the procedure. CONCLUSION: 1. The examination demonstrates severe small vessel disease below the level of the knee bilaterally. This does not appear amenable to endovascular repair for treatment. This is described in detail rina castro Electronically signed by: Austen Sky MD 10/06/2017 8:16 AM EDT
[2017-10-06] MEDS: FLUoxetine 20 MG Capsule PO SCH (08:19)
[2017-10-06] MEDS: Calcium Acetate 667 MG Capsule PO SCH ×3 (08:19→18:37)
--- NOTE | 2017-10-06 09:53 | P.PNFP ---
Subjective Interval history: Mr Hoang was Halicatted last night. He was having problems with shortness of breath. Per the respiratory node in the middle the night it seemed as they had trouble getting a pulse ox. There was also report that the patient was very frightened and was grabbing his nurses arm. Evidently he felt well and had high O2 sats in the 95 range today once they adjusted his oxygen. This morning when I went in to see him he was very frightened. He felt short of breath and he felt very scared. His brother entered the room and stated that this gentleman had had multiple prior episodes of panic attacks. This patient wanted to leave the hospital because he was so generally frightened. When asked he admitted that since he had just had surgery he could not go home and still have some sort of pain control. On speaking to his nurse this morning after this patient had received 2 mg of morphine he was calmer and did feel generally better. However he was still frightened and complaining about shortness of breath. He does not have any chest pain he was not hypoxic. He did not have any cough or new wheezing that he had noticed. His pain was much better as far as his foot. Results - Labs Result diagrams: 10/06/17 05:11 10/06/17 05:11 Abnormal lab results 10/06/17 10/06/17 Range/Units 05:11 05:11 RBC 3.45 L (4.50-5.90) mil/mm3 Hgb 10.6 L (13.0-17.0) gm/dL Hct 32.9 L (39.0-51.0) % Plt Count 144 L (150-450) th/mm3 Neut % (Auto) 74.0 H (16.0-70.0) % Baker % (Auto) 8.4 H (0.0-8.0) % Sodium 135 L (136-145) meq/L Chloride 95 L (98-107) meq/L BUN 20 H (7-18) mg/dL Creatinine 5.88 H (0.60-1.30) mg/dL Estimated GFR 10 L (>89) mL/min Random Glucose 115 H (74-106) mg/dL ALT 11 L (12-78) U/L Albumin 2.7 L (3.4-5.0) g/dL Short CBC 10/06/17 Range/Units 05:11 WBC 7.1 (4.0-11.0) th/mm3 Hgb 10.6 L (13.0-17.0) gm/dL Hct 32.9 L (39.0-51.0) % Plt Count 144 L (150-450) th/mm3 BMP 10/06/17 05:11 Sodium 135 L Potassium 4.0 Chloride 95 L Carbon Dioxide 27.9 BUN 20 H Creatinine 5.88 H Calcium 8.9 Liver Function 10/06/17 Range/Units 05:11 Total Bilirubin 0.5 (0.2-1.0) mg/dL AST 18 (15-37) U/L ALT 11 L (12-78) U/L Alkaline Phosphatase 107 (45-117) U/L Albumin 2.7 L (3.4-5.0) g/dL - Imaging Impressions Lower Extremity Angiography 10/03/17 00:00 CONCLUSION: 1. The examination demonstrates severe small vessel disease below the level of the knee bilaterally. This does not appear amenable to endovascular repair for treatment. This is described in detail above. Foot X-Ray 10/05/17 00:00 CONCLUSION: 1. Changes consistent with interval amputation of the third digit. There is soft tissue air in the adjacent soft tissues likely postsurgical in etiology. 2. Severe small vessel arterial calcification. Chest X-Ray 10/06/17 02:06 CONCLUSION: Cardiomegaly. Increased density at the left lung likely related to some underlying consolidation or atelectasis.. Physical Exam Vital signs: Vital Signs 10/05/17 14:30 10/05/17 14:45 10/05/17 15:00 Temperature 97.7 F Pulse Rate 61 60 60 Respiratory Rate 20 14 16 Blood Pressure 105/60 106/46 L 99/35 L Pulse Oximetry 100 100 100 10/05/17 15:15 10/05/17 15:30 10/05/17 15:32 Temperature Pulse Rate 60 60 Respiratory Rate 13 15 Blood Pressure 108/33 L 99/37 L Pulse Oximetry 100 100 100 10/05/17 15:56 10/05/17 16:00 10/05/17 20:00 Temperature 97.9 F 96.6 F L 97.4 F L Pulse Rate 60 60 59 L Respiratory Rate 16 14 18 Blood Pressure 99/40 L 116/46 L 102/59 L Pulse Oximetry 100 88 L 98 10/06/17 00:00 10/06/17 00:15 10/06/17 04:00 Temperature 97.8 F 98.2 F Pulse Rate 83 59 L 61 Respiratory Rate 20 20 Blood Pressure 98/49 L 102/60 Pulse Oximetry 100 100 10/06/17 04:02 10/06/17 08:00 Temperature 97.5 F L Pulse Rate 60 61 Respiratory Rate 16 Blood Pressure 111/55 L Pulse Oximetry 96 Intake & Output 10/05/17 10/06/17 10/06/17 18:59 06:59 18:59 Intake Total 50 / 50 595 / 595 Output Total 1505 / 1505 Balance -1455 / -1455 595 / 595 Intake: Oral 595 / 595 Anesthesia Amount 50 / 50 Output: Hemodialysis Amount 1500 / 1500 Estimated Blood Loss 5 / 5 Other: Date of Last Bowel Movement 10/03/17 10/03/17 - Constitutional mild distress, thin, cooperative - Routine HEENT Exam Head: Present: normocephalic, atraumatic. Absent: abrasion, laceration, facial swelling Eye: Present: EOMI, PERRL ENT: Present: nares patent, external ear normal - Routine Neck Exam Present: supple, trachea midline - Routine Respiratory Exam Present: decreased breath sounds (on left), diminished air movement. Absent: accessory muscle use, patient mechanically ventilated, prolonged expiratory phase, rhonchi, wheezes - Routine Cardiovascular Exam Present: RRR. Absent: murmur, gallop, rubs, irregular rhythm - Routine Abdominal Exam Present: soft. Absent: tenderness, distended, rebound - Routine Extremities Exam Present: amputation (of toe). Absent: cyanosis, clubbing, edema, pulses intact , normal capillary refill - Routine Skin Exam Present: dry. Absent: cyanosis, mottling, petechiae - Routine Neurological Exam Present: alert, oriented X3, moving all extremities. Absent: sensory deficit, motor deficit - Routine Psychiatric Exam Present: cooperative, anxious. Absent: good insight, good judgment Assessment and Plan - Assessment (1) Shortness of breath Code(s): R06.02 - Shortness of breath Status: Acute Onset Date: ~10/06/17 Plan: It is unclear exactly what is behind his shortness of breath. His brother and the patient himself give a firm past history of panic attacks and both of them believe that what is happening right now and what happened last night are due to panic attacks. He does not have any chest pain or pressure or anything suggestive of an acute cardiac event at this time. He does have a lot of other things on the differential that can cause shortness of breath. He was not receiving anticoagulation prior to his surgery because of the risk during the surgery. However now he is 24 hours after his toe amputation and we can start heparin subcu 5000 q. 8 as a prevention for clots. It is possible that he could have a PE. He is on dialysis so to avoid the dye from the CTA can get a VQ scan. However his lung exam shows diminished breath sounds particularly on the left side. His chest x-ray is not normal so that will make a VQ more difficult to read. If he does have a PE then he would need to go on IV heparin. Because of his renal failure Lovenox would not be the appropriate choice. Also considering his EF is 25%. He could have some fluid overload as he is a dialysis patient who is essentially oliguric. When examining his surgical notes from yesterday it does not appear that he received a lot of fluids during surgery. His lung exam is not normal as he has diminished breath sounds particularly on the left. Based on his differential and the fact that he and his brother both think he is having a panic attack will give Ativan 1 mg now and make it every 6 as needed for anxiety. He will be rechecked later this afternoon to make sure that he does not have any further or continuing problems with shortness of breath and hopefully the Ativan will have solved his problem. 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 Patient afebrile, VSS, no leukocytosis, x-ray does not show any signs of osteomyelitis. Blood cultures negative x 48 hrs CTA runoff 10/02: 1. Severe diffuse arterial atherosclerotic calcifications with no significant aortic or iliac inflow stenosis. 2. Moderate to severe focal stenosis of the right SFA in the distal thigh. 3. Focal moderate stenosis of the left SFA in the distal thigh. 4. Severely diseased and diffusely calcified tibial arteries precluding definitive evaluation. However, there appeared to be multiple tandem severe stenoses/occlusions in the tibial arteries bilaterally. Patient's symptoms are therefore primarily due to runoff disease. Podiatry consulted, appreciate recommendations. Had toe amputation yesterday Vascular surgery -Unable to proceed with balloon dilatation of SFAs due to severe vessels Tylenol as needed for pain control. Morphine for breakthrough. (3) ESRD (end stage renal disease) Code(s): N18.6 - End stage renal disease Status: Chronic Plan: On HD as an outpatient Neurology consulted, appreciate recommendations -Periodic hemodialysis Avoid any nephrotoxic medications Renally dose medications (4) Hypertension Code(s): I10 - Essential (primary) hypertension Status: Chronic Plan: Vital signs stable. Continue home medications: -Carvedilol decreased to 3.125 mg p.o. twice daily (5) Anxiety Code(s): F41.9 - Anxiety disorder, unspecified Status: Chronic Plan: Continue home medications. -Fluoxetine 20 mg p.o. daily (6) Congestive heart failure Code(s): I50.9 - Heart failure, unspecified Status: Chronic Plan: Currently stable. dialysis is treatment for fluid overload On Lasix 40 mg at home, currently not giving it since Lasix dose is based on dialysis routine. (7) Nutrition, metabolism, and development symptoms Code(s): R63.8 - Other symptoms and signs concerning food and fluid intake Status: Acute Plan: Fluids: Encourage p.o. Electrolytes: Monitor and replete as needed. Diet. renal (8) DVT prophylaxis Status: Acute Plan: SCDs only initially. However now he has had his surgery and can start on heparin subcu will give him 5000 units q. 8. - Assessment and Plan 71 yo male with PMH of CVD, ESRD presenting with swollen/necrotic left 3rd toe. Podiatry, vascular surgery, nephrology consulted. Discharge Planning: Now that he has had a surgery we will look for a consult from Dr. Morales and wound care doctor to see what her recommendations are. He is not any sort of candidate for surgical or interventional radiology radiologic repair of his arteries in his legs so will get physical therapy to see if he needs rehabilitation. 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
[2017-10-06] MEDS ORDERED: LORazepam 1 MG Tablet PO PRN (10:00)
--- NOTE | 2017-10-06 12:55 | ECG ---
Date Performed: 10/06/2017 Time Performed: 08:41:20 PTAGE: 71 years EK% ATRIAL PACING LOW LIMB LEAD VOLTAGE LEFT AXIS DEVIATION POSSILBE OLD INFERIOR INFARCT POOR R WAVE PROGRESSION, CANNOT EXCLUDE ANTERIOR INFARCT ABNORMAL ECG Since PREVIOUS TRACING , no significant change noted PREVIOUS TRACIN09/30/2017 16.01 DOCTOR: Zafar Del Angel Interpretating Date/Time 10/06/2017 12:54:40
--- NOTE | 2017-10-06 15:25 | NM ---
EXAM DATE: 10/06/2017 2:45 PM EDT AGE/SEX: 71 years / Male INDICATIONS: Shortness of breath. CLINICAL DATA: This is the patient's initial encounter. Patient reports that signs and symptoms have been present for 1 day and indicates a pain score of 0/10. MEDICAL/SURGICAL HISTORY: Congestive heart failure. Hypertension. Dialysis patient. Past myoca rdial infarction x 4. Defibrillator. Fistula. History of cardiac catheterization. COMPARISON: [facility], CHEST 1V SINGLE AP, 10/06/2017. . DOSE: 0.8 mCi Tc99m DTPA aerosol 8.7 mCi Tc99m MAA IV TECHNIQUE: Following five minutes of tidal breathing of DTPA aerosol, planar images of the lungs wer e performed in eight projections. The patient was then injected with MAA, and eight-view perfusion s can was performed. FINDINGS: On the ventilation and perfusion scans there is a focal defect from pacer apparatus on the right. Mil d blunting of the costophrenic angles. No segmental perfusion defects to suggest pulmonary embolic di sease. CONCLUSION: 1. Low probability for pulmonary embolus. Electronically signed by: Timmy Howard MD 10/06/2017 3:24 PM EDT
--- NOTE | 2017-10-06 15:49 | P.PNNP ---
Subjective Interval history: Patient denies nausea, vomiting, diarrhea, fever, chills chest pain and dyspnea , persistence of foot pain, physical therapy worked with patient HPI:This is a 71 year old male with history of ESRD for which he is on HD TTS, under the supervision of Dr. Luis. Patient apparently injured his left middle toe about 3-4 weeks ago. He did not seek any opinion regarding this matter for several weeks, although he had noticed that the toe had become purple to black. He had developed a non healing ulcer on the toe. He also has other areas on bilateral feet: tips of first 2 toes of the right foot, and first toe of the left foot that appear ischemic ulcers. PAST MEDICAL HISTORY: CHF, hypertension, history of a heart attack PAST SURGICAL HISTORY: Placement of defibrillator, vascular access for dialysis , cardiac catheterization SOCIAL HISTORY: FAMILY HISTORY: Cancer in patient's father mother and sister diabetes in brother and sister ALLERGY HISTORY: As per chart MEDS:As per chart TEST RESULTS: CARDIOPULMONARY: RADIOLOGIC: LABORATORY mild hyponatremia normal white count mildly HEALTH MAINTENANCE-: PROCEDURES: REVIEW OF SYSTEMS: GENERAL: POSITIVE for fatigue. Eyes: Negative for eye pain. ENT: Negative for earache RESP: Negative for cough. CV: negative for chest pain. GI: Negative for abdominal pain. -MALE:Negative for hematuria Musculoskeletal: POSITIVE for joint pain BACK: No Pain SKIN: POSITIVE for rash. NEURO: Negative for seizures. PSYCHE: Negative for depression. Lymph: No Lymph node enlargement Physical Exam Vital signs: Vital Signs 10/05/17 15:56 10/05/17 16:00 10/05/17 20:00 Temperature 97.9 F 96.6 F L 97.4 F L Pulse Rate 60 60 59 L Respiratory Rate 16 14 18 Blood Pressure 99/40 L 116/46 L 102/59 L Pulse Oximetry 100 88 L 98 10/06/17 00:00 10/06/17 00:15 10/06/17 04:00 Temperature 97.8 F 98.2 F Pulse Rate 83 59 L 61 Respiratory Rate 20 20 Blood Pressure 98/49 L 102/60 Pulse Oximetry 100 100 10/06/17 04:02 10/06/17 08:00 10/06/17 12:00 Temperature 97.5 F L 97.3 F L Pulse Rate 60 61 62 Respiratory Rate 16 16 Blood Pressure 111/55 L 111/51 L Pulse Oximetry 96 97 Intake & Output 10/05/17 10/06/17 10/06/17 18:59 06:59 18:59 Intake Total 50 / 50 595 / 595 Output Total 1505 / 1505 Balance -1455 / -1455 595 / 595 Intake: Oral 595 / 595 Anesthesia Amount 50 / 50 Output: Hemodialysis Amount 1500 / 1500 Estimated Blood Loss 5 / 5 Other: Date of Last Bowel Movement 10/03/17 10/03/17 10/03/17 GENERAL APPEARANCE: in no acute distress. HEENT:: normocephalic, atraumatic NECK :no cervical lymphadenopathy. ORAL CAVITY: mucosa moist. CHEST:normal SKIN: no suspicious lesions. HEART: no murmurs. LUNGS: clear to auscultation bilaterally. BREASTS: not examined. ABDOMEN: soft, nontender. BACK: No paraspinal muscle spasm. MALE GENITOURINARY: not examined. MUSCULOSKELETAL: normal. EXTREMITIES: Absent edema FOOT EXAM : Left middle toe ulcer on the dorsal aspect with erythema and nonpalpable pulses PERIPHERAL PULSES: Nonpalpable NEUROLOGIC: nonfocal. PSYCH: normal. 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 Code(s): L97.904 - Non-pressure chronic ulcer of unspecified part of unspecified lower leg with necrosis of bone Status: Acute Qualifiers: Laterality: left Qualified Code(s): L97.924 - Non-pressure chronic ulcer of unspecified part of left lower leg with necrosis of bone (2) ESRD (end stage renal disease) Code(s): N18.6 - End stage renal disease Status: Chronic (3) Hypertension Code(s): I10 - Essential (primary) hypertension Status: Chronic Qualifiers: Hypertension type: renovascular hypertension Qualified Code(s): I15.0 - Renovascular hypertension (4) Anxiety Code(s): F41.9 - Anxiety disorder, unspecified Status: Chronic - Plan 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 Code(s): L97.904 - Non-pressure chronic ulcer of unspecified part of unspecified lower leg with necrosis of bone Status: Acute Plan: Defer to hospitalist/primary care team (2) ESRD (end stage renal disease) Code(s): N18.6 - End stage renal disease Status: Acute Plan: #: N18.6 :ESRD-Standard care for ESRD patient --Periodic dialysis based on clinical symptoms laboratory results and volume status --with adequacy monitoring --as well as monitoring for anemia, nutrition, bone disease, blood pressure control, --monitor access adequacy, and complications (3) Hypertension Code(s): I10 - Essential (primary) hypertension Status: Acute Qualifiers: Hypertension type: renovascular hypertension Qualified Code(s): I15.0 - Renovascular hypertension Plan: Stable (4) Anxiety Code(s): F41.9 - Anxiety disorder, unspecified Status: Acute - Plan #: OTHER PROBLEMS: Ulcer of the lower extremity, with infection, anxiety PLAN: Defer to hospitalist/primary care team
--- NOTE | 2017-10-06 18:58 | P.PNPOD ---
Subjective Interval history: Patient seen post op day 1. Resting comfortably. No concerns, denies any N,V,F, Ch. Denies calf pain. Physical Exam Vital signs: Vital Signs 10/05/17 20:00 10/06/17 00:00 10/06/17 00:15 Temperature 97.4 F L 97.8 F Pulse Rate 59 L 83 59 L Respiratory Rate 18 20 Blood Pressure 102/59 L 98/49 L Pulse Oximetry 98 100 10/06/17 04:00 10/06/17 04:02 10/06/17 08:00 Temperature 98.2 F 97.5 F L Pulse Rate 61 60 61 Respiratory Rate 20 16 Blood Pressure 102/60 111/55 L Pulse Oximetry 100 96 10/06/17 12:00 10/06/17 16:00 Temperature 97.3 F L 97.9 F Pulse Rate 62 61 Respiratory Rate 16 16 Blood Pressure 111/51 L 118/85 Pulse Oximetry 97 94 L Intake & Output 10/05/17 10/06/17 10/06/17 18:59 06:59 18:59 Intake Total 50 / 50 595 / 595 Output Total 1505 / 1505 Balance -1455 / -1455 595 / 595 Intake: Oral 595 / 595 Anesthesia Amount 50 / 50 Output: Hemodialysis Amount 1500 / 1500 Estimated Blood Loss 5 / 5 Other: # Voids 2 Date of Last Bowel Movement 10/03/17 10/03/17 10/03/17 # Bowel Movements 1 Narrative: Dressing intact to the left LE, no strikethrough noted. No pain on calf squeeze. PROCEDURE RN to digits x5 of left foot. Medications and Allergies Active Medications: Active Medications Acetaminophen (Tylenol) 650 mg PO Q4H PRN PRN Reason: Temp > 100.4 Acetaminophen (Tylenol) 650 mg PO UNSCH PRN PRN Reason: SEE LABEL COMMENTS Albuterol (Duoneb Neb (Prn)) 1 ampul NEB Q6HR NEB PRN PRN Reason: SHORTNESS OF BREATH Bisacodyl (Dulcolax Supp) 10 mg RECTAL DAILY PRN PRN Reason: SEVERE CONSITIPATION Calcium Acetate (Phoslo) 1,334 mg PO TID [facility] Last Admin: 10/06/17 18:37 Dose: 1,334 mg Carvedilol (Coreg) 3.125 mg PO BID [facility] Last Admin: 10/06/17 08:24 Dose: 3.125 mg Chlorhexidine Gluconate (Chlorhexidine 2% Cloth) 3 pack [facility] INFORMATION SPECIALIST [facility] Stop: 10/06/17 21:32 Clonidine HCl (Catapres) 0.1 mg PO UNSCH PRN PRN Reason: SEE LABEL COMMENTS Diphenhydramine HCl (Benadryl) 25 mg PO UNSCH PRN PRN Reason: SEE LABEL COMMENTS Last Admin: 10/03/17 00:01 Dose: 25 mg Epoetin Ford (Epogen Inj) 5,000 unit IV.PUSH UNSCH PRN PRN Reason: SEE LABEL COMMENTS Last Admin: 10/03/17 13:20 Dose: 5,000 unit Fluoxetine HCl (Prozac) 20 mg PO DAILY [facility] Last Admin: 10/06/17 08:19 Dose: 20 mg Gelatin (Gelfoam 12 Mm/7 Mm Topical) 1 foam TOPICAL PRN PRN PRN Reason: help stop bleeding from site Gentamicin Sulfate (Gentamicin Inj) 20 mg OTHER WITH DIALYSIS PRN PRN Reason: Dwell Gentamycin Lock Heparin Sodium (Porcine) (Heparin Inj) 8,000 units OTHER WITH DIALYSIS PRN PRN Reason: for machine prime Heparin Sodium (Porcine) (Heparin Inj) 1,000 units OTHER WITH DIALYSIS PRN PRN Reason: Dwell Heparin to Fill Catheter Heparin Sodium (Porcine) (Heparin Inj) 5,000 units SQ Q12HR [facility] Albumin Human (Flexbumin 25% Inj) 100 mls @ 60 mls/hr IV.SIG WITH DIALYSIS PRN PRN Reason: hypotension / volume replace Sodium Chloride (Ns Inj) 1,000 mls @ 200 mls/hr OTHER .Q5H PRN PRN Reason: for dialyzer flush PRN Sodium Chloride (Ns Inj) 1,000 mls @ 0 mls/hr IV.CONT .Q0M PRN PRN Reason: hypotension / volume replace Sodium Chloride (Ns Inj) 1,000 mls @ 0 mls/hr OTHER .Q0M PRN PRN Reason: for prime and rinse back Lactated Ringer's (Lr 1000 Ml Inj) 1,000 mls @ 30 mls/hr IV.SIG .Q24H [facility] Stop: 10/06/17 21:32 Last Admin: 10/05/17 21:49 Dose: Not Given Sodium Chloride (Ns Inj) 500 mls @ 30 mls/hr IV.SIG .Q10H [facility] Stop: 10/06/17 21:32 Lactulose (Lactulose Liq) 30 ml PO DAILY PRN PRN Reason: SEVERE CONSITIPATION Lorazepam (Ativan) 1 mg PO Q6H PRN PRN Reason: ANXIETY Last Admin: 10/06/17 10:00 Dose: 1 mg Mannitol (Mannitol Inj) 12.5 gm IV.PUSH UNSCH PRN PRN Reason: hypotension / volume replace Metoprolol Tartrate (Lopressor) 25 mg PO [facility] INFORMATION SPECIALIST [facility] Stop: 10/06/17 21:32 Morphine Sulfate (Morphine Inj) 4 mg IV.PUSH Q3H PRN PRN Reason: PAIN 6-10;IF UNABLE TO TAKE PO Last Admin: 10/05/17 21:48 Dose: 4 mg Morphine Sulfate (Morphine Inj) 2 mg IV.PUSH Q3H PRN PRN Reason: PAIN 3-5; IF UABLE TO TAKE PO Last Admin: 10/06/17 08:51 Dose: 2 mg Naloxone HCl (Narcan Inj) 0.4 mg IV.PUSH UNSCH PRN PRN Reason: SEE LABEL COMMENTS Nitroglycerin (Nitrostat Sl) 0.4 mg SL Q5M PRN PRN Reason: CHEST PAIN Ondansetron HCl (Zofran Inj) 4 mg IV.PUSH Q6H PRN PRN Reason: NAUSEA OR VOMITING Ondansetron HCl (Zofran Inj) 4 mg IV.PUSH UNSCH PRN PRN Reason: NAUSEA OR VOMITING Pantoprazole Sodium (Protonix) 40 mg PO DAILY [facility] Last Admin: 10/06/17 08:19 Dose: 40 mg Povidone Iodine (Betadine 5% Antisepsis Kit) 1 applicatio EACH [facility] Stop: 10/06/17 21:32 Sennosides (Senokot) 17.2 mg PO Q12H PRN PRN Reason: Moderate Constipation Sodium Chloride (Ns Flush) 2 ml IV.FLUSH BID [facility] Last Admin: 10/06/17 08:24 Dose: 2 ml Sodium Chloride (Ns Flush) 2 ml IV.FLUSH PRN PRN PRN Reason: FLUSH AFTER USING IV ACCESS Last Admin: 10/06/17 03:54 Dose: 2 ml Temazepam (Restoril) 15 mg PO HS PRN PRN Reason: INSOMNIA Allergies Allergy/AdvReac Type Severity Reaction Status Date / Time neomycin Allergy Severe Anaphylaxis Verified 10/03/17 14:34 Home Medications Medication Instructions Recorded Confirmed Type carvedilol 6.25 mg PO BID 09/30/17 09/30/17 History fluoxetine 20 mg PO DAILY 09/30/17 09/30/17 History folic acid 1 mg PO DAILY 09/30/17 09/30/17 History furosemide 20 mg PO DAILY 09/30/17 09/30/17 History isosorbide mononitrate 30 mg PO DAILY 09/30/17 09/30/17 History mirtazapine 15 mg PO DAILY 09/30/17 09/30/17 History pantoprazole 40 mg PO DAILY 09/30/17 09/30/17 History vit B comp no.2-[id number]-[id number]-biotin 1 tab PO DAILY 09/30/17 09/30/17 History [[facility] Rx] warfarin 5 mg PO DAILY 09/30/17 09/30/17 History Results - Labs CBC & Chem 7: 10/06/17 05:11 10/06/17 05:11 Laboratory Results - last 24 hr 10/06/17 10/06/17 10/06/17 01:37 05:11 05:11 WBC 7.1 RBC 3.45 L Hgb 10.6 L Hct 32.9 L MCV 95.4 MCH 30.6 MCHC 32.1 RDW 16.9 Plt Count 144 L MPV 9.1 Neut % (Auto) 74.0 H Lymph % (Auto) 14.5 [place] % (Auto) 8.4 H Eos % (Auto) 2.1 Baso % (Auto) 1.0 Neut # (Auto) 5.3 Lymph # (Auto) 1.0 [place] # (Auto) 0.6 Eos # (Auto) 0.1 Baso # (Auto) 0.1 WBC Differential . Differential Comment Auto diff final Sodium 135 L Potassium 4.0 Chloride 95 L Carbon Dioxide 27.9 Anion Gap 12 BUN 20 H Creatinine 5.88 H Estimated GFR 10 L POC Glucose 83 Random Glucose 115 H Calcium 8.9 Total Bilirubin 0.5 AST 18 ALT 11 L Alkaline Phosphatase 107 Total Protein 6.9 Albumin 2.7 L Microbiology 10/05/17 14:20 Wound - Toe Acid Fast Bacilli Smear - Final No acid fast bacilli seen 10/05/17 14:20 Tissue - Toe Acid Fast Bacilli Smear - Final No acid fast bacilli seen 10/05/17 14:20 Wound - Toe Gram Stain - Final 10/05/17 14:20 Wound - Toe Wound Culture - Preliminary No growth in 24 hours 10/05/17 14:20 Tissue - Toe Gram Stain - Final 10/05/17 14:20 Tissue - Toe Wound Culture - Preliminary No growth in 24 hours 10/05/17 14:20 Wound - Toe Fungal Smear - Final No fungal elements seen 10/05/17 14:20 Tissue - Toe Fungal Smear - Final No fungal elements seen - Imaging Impressions Lower Extremity Angiography 10/03/17 00:00 CONCLUSION: 1. The examination demonstrates severe small vessel disease below the level of the knee bilaterally. This does not appear amenable to endovascular repair for treatment. This is described in detail above. Pulmonary Perfusion Imaging 10/06/17 00:00 CONCLUSION: 1. Low probability for pulmonary embolus. Chest X-Ray 10/06/17 02:06 CONCLUSION: Cardiomegaly. Increased density at the left lung likely related to some underlying consolidation or atelectasis.. Assessment and Plan - Assessment (1) Osteomyelitis Code(s): M86.9 - Osteomyelitis, unspecified Status: Acute - Plan 71-year-old male with s/p left third digit amputation at J Will change dressing tomorrow and evaluate incision Patient weight bearing as tolerated in surgical shoe, however would recommended limited weight bearing Discussed with POA Will await surgical pathology and microbiology (1) Osteomyelitis Qualifiers: Osteomyelitis type: unspecified type Osteomyelitis location: foot Laterality : left Qualified Code(s): M86.9 - Osteomyelitis, unspecified
[2017-10-06] MEDS: Heparin - SQ 10,000 UNITS/ML Vial SQ SCH (21:24)
[2017-10-07] MEDS: Morphine Inj 4 MG/ML Vial IV.PUSH PRN ×3 (05:58→20:56)
[2017-10-07 07:21] LABS: Hematocrit 30.9 % (39.0-51.0); Mean Corpuscular HGB Conc 32.3 % (32.0-36.0); Mean Corpuscular Hemoglobin 30.7 pg (27.0-34.0); Mean Corpuscular Volume 95.2 fL (80.0-100.0); Mean Platelet Volume 9.4 fL (7.0-11.0); Platelet Count 130 th/mm3 (150-450); Red Blood Count 3.24 mil/mm3 (4.50-5.90); Red Cell Distribution Width 16.6 % (11.6-17.2); White Blood Count 6.6 th/mm3 (4.0-11.0)
[2017-10-07 08:04] LABS: Calcium 9.1 mg/dL (8.5-10.1); Carbon Dioxide 27.5 meq/L (21.0-32.0)
[2017-10-07] MEDS: Albumin Human 25% Inj 100 ML IV.SIG PRN ×2 (08:34→09:20)
[2017-10-07] MEDS: Heparin - SQ 10,000 UNITS/ML Vial SQ SCH ×2 (13:18→20:55)
[2017-10-07] MEDS: Calcium Acetate 667 MG Capsule PO SCH ×3 (13:19→17:39)
[2017-10-07] MEDS: FLUoxetine 20 MG Capsule PO SCH (13:24)
--- NOTE | 2017-10-07 14:31 | P.PNFP ---
Subjective Interval history: Pt in pain from toe amputation, he is post surgery day 2. He underwent dialysis this morning and would like some more pain medication. His shortness of breath from yesterday is completely resolved after receiving ativan. Pt has a history of panic attacks. He would like to go home as soon as possible. Discussed with pt that he needs to be cleared by podiatry. <Cathy Germain V - 10/07/17 14:31> Results - Labs Result diagrams: 10/08/17 08:18 10/08/17 08:18 <Shreya Gould - 10/09/17 12:43> Abnormal lab results 10/07/17 10/07/17 Range/Units 06:10 06:10 RBC 3.24 L (4.50-5.90) mil/mm3 Hgb 10.0 L (13.0-17.0) gm/dL Hct 30.9 L (39.0-51.0) % Plt Count 130 L (150-450) th/mm3 Sodium 134 L (136-145) meq/L Chloride 93 L (98-107) meq/L BUN 28 H (7-18) mg/dL Creatinine 7.80 H (0.60-1.30) mg/dL Estimated GFR 7 L (>89) mL/min Short CBC 10/07/17 Range/Units 06:10 WBC 6.6 (4.0-11.0) th/mm3 Hgb 10.0 L (13.0-17.0) gm/dL Hct 30.9 L (39.0-51.0) % Plt Count 130 L (150-450) th/mm3 BMP 10/07/17 06:10 Sodium 134 L Potassium 4.0 Chloride 93 L Carbon Dioxide 27.5 BUN 28 H Creatinine 7.80 H Calcium 9.1 <Cathy Germain V - 10/07/17 14:31> - Imaging Impressions Pulmonary Perfusion Imaging 10/06/17 00:00 CONCLUSION: 1. Low probability for pulmonary embolus. <Cathy Germain V - 10/07/17 14:31> Physical Exam Vital signs: Vital Signs 10/08/17 16:00 10/08/17 20:00 10/09/17 00:00 Temperature 97.4 F L 97.9 F 98 F Pulse Rate 62 60 60 Respiratory Rate 18 17 17 Blood Pressure 114/51 L 99/75 L 116/53 L Pulse Oximetry 100 100 91 L 10/09/17 01:30 10/09/17 04:00 10/09/17 08:00 Temperature 98.4 F 97.1 F L Pulse Rate 60 61 Respiratory Rate 17 17 17 Blood Pressure 94/49 L 108/53 L Pulse Oximetry 91 L 100 Intake & Output 10/08/17 10/09/17 10/09/17 18:59 06:59 18:59 Intake Total 500 / 500 Balance 500 / 500 Weight 79.4 kg Intake: Oral 500 / 500 Other: # Voids 2 Date of Last Bowel Movement 10/07/17 10/07/17 # Bowel Movements 1 <Shreya Gould M - 10/09/17 12:43> Vital Signs 10/06/17 16:00 10/06/17 20:00 10/06/17 21:27 Temperature 97.9 F 96.2 F L Pulse Rate 61 59 L 59 L Respiratory Rate 16 18 Blood Pressure 118/85 103/55 L Pulse Oximetry 94 L 10/07/17 00:00 10/07/17 03:50 10/07/17 04:00 Temperature 98.2 F 98.5 F Pulse Rate 96 H 105 H 64 Respiratory Rate 20 20 Blood Pressure 96/49 L 105/54 L Pulse Oximetry 100 98 10/07/17 08:00 Temperature 98.6 F Pulse Rate 74 Respiratory Rate 16 Blood Pressure 157/74 H Pulse Oximetry 95 Intake & Output 10/06/17 10/07/17 10/07/17 18:59 06:59 18:59 Intake Total 100 / 100 Output Total 1999 Balance -190 / -1900 Intake: IV 100 / 100 Flexbumin 25% Inj 100 ML @ 60 100 / 100 mls/hr IV.SIG WITH DIALYSIS PRN Rx#:[id number] Output: Hemodialysis Amount 1999 Other: # Voids 2 Date of Last Bowel Movement 10/03/17 10/03/17 # Bowel Movements 1 <Cathy Germain V - 10/07/17 14:31> Narrative: GENERAL: White male laying in bed eating lunch. in no acute distress SKIN: Warm and dry. HEAD: Atraumatic. Normocephalic. Mobile lymphoma visible, non tender. EYES: Pupils equal and round. No scleral icterus. No injection or drainage. ENT: No nasal bleeding or discharge. Mucous membranes pink and moist. 5x5cm soft mass at left neck. NECK: Trachea midline. No JVD. CARDIOVASCULAR: Regular rate and rhythm. Holosystolic murmur RESPIRATORY: No accessory muscle use. Clear to auscultation. Breath sounds equal bilaterally. GASTROINTESTINAL: Abdomen soft, non-tender, nondistended. MUSCULOSKELETAL: Extremities without clubbing, cyanosis, or edema. No obvious deformities. Left foot: bandaged present, appreciated mild dry blood at site of incision. No foul smell, no drainage. R side with ulcer present on the dorsal aspect with erythema and nonpalpable pulses. NEUROLOGICAL: Awake and alert. No obvious cranial nerve deficits. Motor grossly within normal limits. Normal speech. PSYCHIATRIC: Appropriate mood and affect; insight and judgment normal. <Cathy Germain V - 10/07/17 14:31> 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 Code(s): L97.904 - Non-pressure chronic ulcer of unspecified part of unspecified lower leg with necrosis of bone Status: Acute (2) Shortness of breath Code(s): R06.02 - Shortness of breath Status: Resolved Onset Date: ~ (3) ESRD (end stage renal disease) Code(s): N18.6 - End stage renal disease Status: Chronic (4) Hypertension Code(s): I10 - Essential (primary) hypertension Status: Chronic (5) Anxiety Code(s): F41.9 - Anxiety disorder, unspecified Status: Chronic (6) Congestive heart failure Code(s): I50.9 - Heart failure, unspecified Status: Chronic (7) Nutrition, metabolism, and development symptoms Code(s): R63.8 - Other symptoms and signs concerning food and fluid intake Status: Acute (8) DVT prophylaxis Status: Acute <Shreya Gould - 10/09/17 12:43> (1) Shortness of breath Code(s): R06.02 - Shortness of breath Status: Resolved Onset Date: ~ Plan: Shortness of breath resolved today. Pt states it got better after medication yesterday (ativan). Due to nature of SOB, and resolving with this medication, we believe this could have been due to a panic attack. Today, pt is breathing calmly and denies any problems breathing. 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 Patient afebrile, VSS, no leukocytosis, x-ray does not show any signs of osteomyelitis. Blood cultures negative x 48 hrs CTA runoff 10/02: 1. Severe diffuse arterial atherosclerotic calcifications with no significant aortic or iliac inflow stenosis. 2. Moderate to severe focal stenosis of the right SFA in the distal thigh. 3. Focal moderate stenosis of the left SFA in the distal thigh. 4. Severely diseased and diffusely calcified tibial arteries precluding definitive evaluation. However, there appeared to be multiple tandem severe stenoses/occlusions in the tibial arteries bilaterally. Patient's symptoms are therefore primarily due to runoff disease. Vascular surgery -Unable to proceed with balloon dilatation of SFAs due to severe vessels Podiatry consulted, appreciate recommendations. L Mid toe amputation 10/05 Tylenol PRN for pain Morphine 4mg IV q3hr PRN Morphine 2mg IV q3hrs PRN (3) ESRD (end stage renal disease) Code(s): N18.6 - End stage renal disease Status: Chronic Plan: On HD as an outpatient Neurology consulted, appreciate recommendations -Periodic hemodialysis Avoid any nephrotoxic medications Renally dose medications (4) Hypertension Code(s): I10 - Essential (primary) hypertension Status: Chronic Plan: Vital signs stable. Continue home medications: -Carvedilol decreased to 3.125 mg p.o. twice daily - Hold for low BP (5) Anxiety Code(s): F41.9 - Anxiety disorder, unspecified Status: Chronic Plan: Continue home medications. -Fluoxetine 20 mg p.o. daily - Ativan 1mg PO q6 hrs PRN (6) Congestive heart failure Code(s): I50.9 - Heart failure, unspecified Status: Chronic Plan: Currently stable. dialysis is treatment for fluid overload On Lasix 40 mg at home, currently not giving it since Lasix dose is based on dialysis routine. (7) Nutrition, metabolism, and development symptoms Code(s): R63.8 - Other symptoms and signs concerning food and fluid intake Status: Acute Plan: Fluids: Encourage p.o. Electrolytes: Monitor and replete as needed. Diet. renal (8) DVT prophylaxis Status: Acute Plan: Heparin subcu 5000 units q. 8. <Cathy Germain V - 10/07/17 14:13> - Assessment and Plan 71 yo male with PMH of CVD, ESRD presenting with swollen/necrotic left 3rd toe. Podiatry, vascular surgery, nephrology consulted. <Cathy Germain V - 10/07/17 14:31> - Attending Attestation The exam, history, and the medical decision-making described in the above note were completed with the assistance of the resident physician. I reviewed and agree with the findings presented. I attest that I had a [id number] encounter with the patient on the same day, and personally performed and documented my assessment and findings in the medical record. From his surgery and doing well overall. He wants to go home as soon as he is able. 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 <Shreya Gould M - Last Filed: 10/09/17 12:43> 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 <Cathy Germain V - Last Filed: 10/07/17 14:13> (2) 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 <Shryea Gould M - Last Filed: 10/09/17 12:43> 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
--- NOTE | 2017-10-07 17:17 | P.PNPOD ---
Subjective Interval history: Patient seen bedside resting comfortably eating an eclair and and ice cream shake. Denies any pain. Denies any nausea vomiting fevers or chills. States he is ready to go home. Physical Exam Vital signs: Vital Signs 10/06/17 20:00 10/06/17 21:27 10/07/17 00:00 Temperature 96.2 F L 98.2 F Pulse Rate 59 L 59 L 96 H Respiratory Rate 18 20 Blood Pressure 103/55 L 96/49 L Pulse Oximetry 100 10/07/17 03:50 10/07/17 04:00 10/07/17 08:00 Temperature 98.5 F 98.6 F Pulse Rate 105 H 64 74 Respiratory Rate 20 16 Blood Pressure 105/54 L 157/74 H Pulse Oximetry 98 95 10/07/17 12:00 Temperature 97.6 F Pulse Rate 60 Respiratory Rate 20 Blood Pressure 98/60 L Pulse Oximetry 92 L Intake & Output 10/06/17 10/07/17 10/07/17 18:59 06:59 18:59 Intake Total 100 / 100 Output Total 1999 Balance -1900 / -190 Intake: IV 100 / 100 Flexbumin 25% Inj 100 ML @ 60 100 / 100 mls/hr IV.SIG WITH DIALYSIS PRN Rx#:[id number] Output: Hemodialysis Amount 1999 Other: # Voids 2 Date of Last Bowel Movement 10/03/17 10/03/17 10/03/17 # Bowel Movements 1 Narrative: Sutures intact with skin well coapted to left third digital amputation site. Capillary refill time within normal limits and under 3 seconds to digits present to left foot. No edema or erythema noted to surgical site. No pain on calf squeeze. Medications and Allergies Active Medications: Active Medications Acetaminophen (Tylenol) 650 mg PO Q4H PRN PRN Reason: Temp > 100.4 Acetaminophen (Tylenol) 650 mg PO UNSCH PRN PRN Reason: SEE LABEL COMMENTS Albuterol (Duoneb Neb (Prn)) 1 ampul NEB Q6HR NEB PRN PRN Reason: SHORTNESS OF BREATH Bisacodyl (Dulcolax Supp) 10 mg RECTAL DAILY PRN PRN Reason: SEVERE CONSITIPATION Calcium Acetate (Phoslo) 1,334 mg PO TID SVEN Last Admin: 10/07/17 13:24 Dose: 1,334 mg Carvedilol (Coreg) 3.125 mg PO BID [facility] Last Admin: 10/07/17 13:18 Dose: Not Given Clonidine HCl (Catapres) 0.1 mg PO UNSCH PRN PRN Reason: SEE LABEL COMMENTS Diphenhydramine HCl (Benadryl) 25 mg PO UNSCH PRN PRN Reason: SEE LABEL COMMENTS Last Admin: 10/03/17 00:01 Dose: 25 mg Epoetin Ford (Epogen Inj) 5,000 unit IV.PUSH UNSCH PRN PRN Reason: SEE LABEL COMMENTS Last Admin: 10/07/17 11:39 Dose: 5,000 unit Fluoxetine HCl (Prozac) 20 mg PO DAILY [facility] Last Admin: 10/07/17 13:24 Dose: 20 mg Gelatin (Gelfoam 12 Mm/7 Mm Topical) 1 foam TOPICAL PRN PRN PRN Reason: help stop bleeding from site Gentamicin Sulfate (Gentamicin Inj) 20 mg OTHER WITH DIALYSIS PRN PRN Reason: Dwell Gentamycin Lock Heparin Sodium (Porcine) (Heparin Inj) 8,000 units OTHER WITH DIALYSIS PRN PRN Reason: for machine prime Heparin Sodium (Porcine) (Heparin Inj) 1,000 units OTHER WITH DIALYSIS PRN PRN Reason: Dwell Heparin to Fill Catheter Heparin Sodium (Porcine) (Heparin Inj) 5,000 units SQ Q8HR [facility] Sodium Chloride (Ns Inj) 1,000 mls @ 200 mls/hr OTHER .Q5H PRN PRN Reason: for dialyzer flush PRN Sodium Chloride (Ns Inj) 1,000 mls @ 0 mls/hr IV.CONT .Q0M PRN PRN Reason: hypotension / volume replace Sodium Chloride (Ns Inj) 1,000 mls @ 0 mls/hr OTHER .Q0M PRN PRN Reason: for prime and rinse back Lactulose (Lactulose Liq) 30 ml PO DAILY PRN PRN Reason: SEVERE CONSITIPATION Lorazepam (Ativan) 1 mg PO Q6H PRN PRN Reason: ANXIETY Last Admin: 10/06/17 10:00 Dose: 1 mg Mannitol (Mannitol Inj) 12.5 gm IV.PUSH UNSCH PRN PRN Reason: hypotension / volume replace Morphine Sulfate (Morphine Inj) 4 mg IV.PUSH Q3H PRN PRN Reason: PAIN 6-10;IF UNABLE TO TAKE PO Last Admin: 10/07/17 13:24 Dose: 4 mg Morphine Sulfate (Morphine Inj) 2 mg IV.PUSH Q3H PRN PRN Reason: PAIN 3-5; IF UABLE TO TAKE PO Last Admin: 10/06/17 08:51 Dose: 2 mg Naloxone HCl (Narcan Inj) 0.4 mg IV.PUSH UNSCH PRN PRN Reason: SEE LABEL COMMENTS Nitroglycerin (Nitrostat Sl) 0.4 mg SL Q5M PRN PRN Reason: CHEST PAIN Ondansetron HCl (Zofran Inj) 4 mg IV.PUSH Q6H PRN PRN Reason: NAUSEA OR VOMITING Ondansetron HCl (Zofran Inj) 4 mg IV.PUSH UNSCH PRN PRN Reason: NAUSEA OR VOMITING Pantoprazole Sodium (Protonix) 40 mg PO DAILY [facility] Last Admin: 10/07/17 13:24 Dose: 40 mg Sennosides (Senokot) 17.2 mg PO Q12H PRN PRN Reason: Moderate Constipation Sodium Chloride (Ns Flush) 2 ml IV.FLUSH BID [facility] Last Admin: 10/07/17 13:19 Dose: Not Given Sodium Chloride (Ns Flush) 2 ml IV.FLUSH PRN PRN PRN Reason: FLUSH AFTER USING IV ACCESS Last Admin: 10/06/17 03:54 Dose: 2 ml Temazepam (Restoril) 15 mg PO HS PRN PRN Reason: INSOMNIA Allergies Allergy/AdvReac Type Severity Reaction Status Date / Time neomycin Allergy Severe Anaphylaxis Verified 10/03/17 14:34 Home Medications Medication Instructions Recorded Confirmed Type carvedilol 6.25 mg PO BID 09/30/17 09/30/17 History fluoxetine 20 mg PO DAILY 09/30/17 09/30/17 History folic acid 1 mg PO DAILY 09/30/17 09/30/17 History furosemide 20 mg PO DAILY 09/30/17 09/30/17 History isosorbide mononitrate 30 mg PO DAILY 09/30/17 09/30/17 History mirtazapine 15 mg PO DAILY 09/30/17 09/30/17 History pantoprazole 40 mg PO DAILY 09/30/17 09/30/17 History vit B comp no.1-merei-B-biotin 1 tab PO DAILY 09/30/17 09/30/17 History [[facility] Rx] warfarin 5 mg PO DAILY 09/30/17 09/30/17 History Results - Labs CBC & Chem 7: 10/07/17 06:10 10/07/17 06:10 Laboratory Results - last 24 hr 10/07/17 10/07/17 06:10 06:10 WBC 6.6 RBC 3.24 L Hgb 10.0 L Hct 30.9 L MCV 95.2 MCH 30.7 MCHC 32.3 RDW 16.6 Plt Count 130 L MPV 9.4 Sodium 134 L Potassium 4.0 Chloride 93 L Carbon Dioxide 27.5 Anion Gap 14 BUN 28 H Creatinine 7.80 H Estimated GFR 7 L Random Glucose 106 Calcium 9.1 Microbiology 10/05/17 14:20 Wound - Toe Gram Stain - Final 10/05/17 14:20 Wound - Toe Wound Culture - Preliminary No growth in 48 hours 10/05/17 14:20 Tissue - Toe Gram Stain - Final 10/05/17 14:20 Tissue - Toe Wound Culture - Preliminary No growth in 48 hours 10/05/17 14:20 Wound - Toe Acid Fast Bacilli Smear - Final No acid fast bacilli seen 10/05/17 14:20 Tissue - Toe Acid Fast Bacilli Smear - Final No acid fast bacilli seen Assessment and Plan - Assessment (1) Osteomyelitis Code(s): M86.9 - Osteomyelitis, unspecified Status: Acute - Plan 71-year-old male with s/p left third digit amputation at [facility] Okay to discharge per podiatry once microbiology and OR pathology final Please discharge and appropriate antibiotic Patient to follow-up in office with myself, Dr. Felipe in [address] within 1 week of discharge Remain limited weightbearing with heel touch to the left lower extremity in surgical shoe Dressing to stay clean dry and intact (1) Osteomyelitis Qualifiers: Osteomyelitis type: unspecified type Osteomyelitis location: foot Laterality : left Qualified Code(s): M86.9 - Osteomyelitis, unspecified
[2017-10-08] MEDS: Heparin - SQ 10,000 UNITS/ML Vial SQ SCH ×4 (02:45→21:10)
[2017-10-08] MEDS: Morphine Inj 4 MG/ML Vial IV.PUSH PRN ×2 (04:28→12:07)
[2017-10-08 09:09] LABS: Hematocrit 31.9 % (39.0-51.0); Hemoglobin 10.2 gm/dL (13.0-17.0); Mean Corpuscular Hemoglobin 30.9 pg (27.0-34.0); Mean Corpuscular Volume 96.5 fL (80.0-100.0); Mean Platelet Volume 9.5 fL (7.0-11.0); Platelet Count 120 th/mm3 (150-450); Red Blood Count 3.31 mil/mm3 (4.50-5.90); Red Cell Distribution Width 16.9 % (11.6-17.2); White Blood Count 7.9 th/mm3 (4.0-11.0)
[2017-10-08 09:28] LABS: Alanine Aminotransferase 8 U/L (12-78); Albumin 3.3 g/dL (3.4-5.0); Alkaline Phosphatase 98 U/L (45-117); Anion Gap 15 meq/L (5-15); Aspartate Aminotransferase 20 U/L (15-37); Blood Urea Nitrogen 18 mg/dL (7-18); Calcium 9.1 mg/dL (8.5-10.1); Carbon Dioxide 29.5 meq/L (21.0-32.0); Chloride 94 meq/L (98-107); Glomerular Filtration Rate 10 mL/min (>89); Glucose,Random 119 mg/dL (74-106); Sodium 138 meq/L (136-145); Total Protein 7.2 g/dL (6.4-8.2)
[2017-10-08] MEDS: FLUoxetine 20 MG Capsule PO SCH (09:56)
[2017-10-08] MEDS: Calcium Acetate 667 MG Capsule PO SCH ×3 (09:56→18:05)
--- NOTE | 2017-10-08 10:51 | P.PNFP ---
Subjective Interval history: Patient seen and examined this morning. He states that he is feeling fine and is eager to go home. No fever/chills, no CP, no shortness of breath, his pain is well controlled. <Ayde Quiroz - 10/08/17 10:51> Results - Labs Result diagrams: 10/08/17 08:18 10/08/17 08:18 <Shreya Gould - 10/09/17 12:44> Abnormal lab results 10/08/17 10/08/17 Range/Units 08:18 08:18 RBC 3.31 L (4.50-5.90) mil/mm3 Hgb 10.2 L (13.0-17.0) gm/dL Hct 31.9 L (39.0-51.0) % Plt Count 120 L (150-450) th/mm3 Chloride 94 L (98-107) meq/L Creatinine 5.80 H (0.60-1.30) mg/dL Estimated GFR 10 L (>89) mL/min Random Glucose 119 H (74-106) mg/dL ALT 8 L (12-78) U/L Albumin 3.3 L (3.4-5.0) g/dL Short CBC 10/08/17 Range/Units 08:18 WBC 7.9 (4.0-11.0) th/mm3 Hgb 10.2 L (13.0-17.0) gm/dL Hct 31.9 L (39.0-51.0) % Plt Count 120 L (150-450) th/mm3 BMP 10/08/17 08:18 Sodium 138 Potassium 4.0 Chloride 94 L Carbon Dioxide 29.5 BUN 18 Creatinine 5.80 H Calcium 9.1 Liver Function 10/08/17 Range/Units 08:18 Total Bilirubin 0.8 (0.2-1.0) mg/dL AST 20 (15-37) U/L ALT 8 L (12-78) U/L Alkaline Phosphatase 98 (45-117) U/L Albumin 3.3 L (3.4-5.0) g/dL <Ayde Quiroz - 10/08/17 10:51> Physical Exam Vital signs: Vital Signs 10/08/17 16:00 10/08/17 20:00 10/09/17 00:00 Temperature 97.4 F L 97.9 F 98 F Pulse Rate 62 60 60 Respiratory Rate 18 17 17 Blood Pressure 114/51 L 99/75 L 116/53 L Pulse Oximetry 100 100 91 L 10/09/17 01:30 10/09/17 04:00 10/09/17 08:00 Temperature 98.4 F 97.1 F L Pulse Rate 60 61 Respiratory Rate 17 17 17 Blood Pressure 94/49 L 108/53 L Pulse Oximetry 91 L 100 Intake & Output 10/08/17 10/09/17 10/09/17 18:59 06:59 18:59 Intake Total 500 / 500 Balance 500 / 500 Weight 79.4 kg Intake: Oral 500 / 500 Other: # Voids 2 Date of Last Bowel Movement 10/07/17 10/07/17 # Bowel Movements 1 <Shreya Gould M - 10/09/17 12:44> Vital Signs 10/07/17 12:00 10/07/17 16:00 10/07/17 20:00 Temperature 97.6 F 97.7 F 97.6 F Pulse Rate 60 60 75 Respiratory Rate 20 16 17 Blood Pressure 98/60 L 118/58 L 105/54 L Pulse Oximetry 92 L 91 L 92 L 10/08/17 00:00 10/08/17 09:57 10/08/17 10:04 Temperature 97.7 F 97.5 F L Pulse Rate 68 60 Respiratory Rate 16 14 Blood Pressure 109/56 L 107/59 L Pulse Oximetry 93 L 93 L Intake & Output 10/07/17 10/08/17 10/08/17 18:59 06:59 18:59 Intake Total 100 / 100 Output Total 1999 Balance -190 / -1900 Intake: IV 100 / 100 Flexbumin 25% Inj 100 ML @ 60 100 / 100 mls/hr IV.SIG WITH DIALYSIS PRN Rx#:[id number] Output: Hemodialysis Amount 1999 Other: # Voids 2 Date of Last Bowel Movement 10/03/17 10/07/17 10/07/17 <Ayde Quiroz - 10/08/17 10:51> Narrative: GENERAL: White male laying in bed, in no acute distress SKIN: Warm and dry. HEAD: Atraumatic. Normocephalic. EYES: Pupils equal and round. No scleral icterus. No injection or drainage. ENT: No nasal bleeding or discharge. Mucous membranes pink and moist. 5x5cm soft mass at left neck. NECK: Trachea midline. No JVD. CARDIOVASCULAR: Regular rate and rhythm. Holosystolic murmur RESPIRATORY: No accessory muscle use. Clear to auscultation. Breath sounds equal bilaterally. GASTROINTESTINAL: Abdomen soft, non-tender, nondistended. MUSCULOSKELETAL: Extremities without clubbing, cyanosis, or edema. No obvious deformities. Left foot: bandage C/D/I. No foul smell, no drainage. R side with ulcer present on the dorsal aspect with erythema and nonpalpable pulses. NEUROLOGICAL: Awake and alert. No obvious cranial nerve deficits. Motor grossly within normal limits. Normal speech. PSYCHIATRIC: Appropriate mood and affect; insight and judgment normal. <Ayde Quiroz - 10/08/17 10:51> 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 Code(s): L97.904 - Non-pressure chronic ulcer of unspecified part of unspecified lower leg with necrosis of bone Status: Acute (2) Shortness of breath Code(s): R06.02 - Shortness of breath Status: Resolved Onset Date: ~ (3) ESRD (end stage renal disease) Code(s): N18.6 - End stage renal disease Status: Chronic (4) Hypertension Code(s): I10 - Essential (primary) hypertension Status: Chronic (5) Anxiety Code(s): F41.9 - Anxiety disorder, unspecified Status: Chronic (6) Congestive heart failure Code(s): I50.9 - Heart failure, unspecified Status: Chronic (7) Nutrition, metabolism, and development symptoms Code(s): R63.8 - Other symptoms and signs concerning food and fluid intake Status: Acute (8) DVT prophylaxis Status: Acute <Shreya Gould - 10/09/17 12:44> 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 Patient afebrile, VSS, no leukocytosis, x-ray does not show any signs of osteomyelitis. Blood cultures negative x 48 hrs CTA runoff 10/02: 1. Severe diffuse arterial atherosclerotic calcifications with no significant aortic or iliac inflow stenosis. 2. Moderate to severe focal stenosis of the right SFA in the distal thigh. 3. Focal moderate stenosis of the left SFA in the distal thigh. 4. Severely diseased and diffusely calcified tibial arteries precluding definitive evaluation. However, there appeared to be multiple tandem severe stenoses/occlusions in the tibial arteries bilaterally. Patient's symptoms are therefore primarily due to runoff disease. Vascular surgery -Unable to proceed with balloon dilatation of SFAs due to severe vessels Podiatry consulted, appreciate recommendations. -Left third digit amputation at [facility] on 10/05 -Okay to discharge per podiatry once microbiology and OR pathology final -Please discharge on appropriate antibiotic -Patient to follow-up in office Dr. Felipe within 1 week of discharge -Remain limited weightbearing with heel touch to the left lower extremity in surgical shoe -Dressing to stay clean dry and intact Will switch Morphine IV to po meds in anticipation of d/c (2) Shortness of breath Code(s): R06.02 - Shortness of breath Status: Resolved Onset Date: ~ Plan: Shortness of breath resolved on 10/07. Pt states it got better after Ativan. Due to nature of SOB, and resolving with this medication, we believe this could have been due to a panic attack. Pt continues to deny any problems breathing today. -Ativan 1mg PO q6hrs PRN for anxiety (3) ESRD (end stage renal disease) Code(s): N18.6 - End stage renal disease Status: Chronic Plan: On HD as an outpatient Neurology consulted, appreciate recommendations -Periodic hemodialysis Avoid any nephrotoxic medications Renally dose medications (4) Hypertension Code(s): I10 - Essential (primary) hypertension Status: Chronic Plan: Vital signs stable. Continue home medications: -Carvedilol decreased to 3.125 mg p.o. twice daily -Hold for low BP (5) Anxiety Code(s): F41.9 - Anxiety disorder, unspecified Status: Chronic Plan: Continue home medications. -Fluoxetine 20 mg p.o. daily -Ativan 1mg PO q6 hrs PRN (6) Congestive heart failure Code(s): I50.9 - Heart failure, unspecified Status: Chronic Plan: Currently stable. dialysis is treatment for fluid overload On Lasix 40 mg at home, currently not giving it since Lasix dose is based on dialysis routine. (7) Nutrition, metabolism, and development symptoms Code(s): R63.8 - Other symptoms and signs concerning food and fluid intake Status: Acute Plan: Fluids: Encourage p.o. Electrolytes: Monitor and replete as needed. Diet: renal (8) DVT prophylaxis Status: Acute Plan: Heparin subcu 5000 units q. 8h <Ayde Quiroz - 10/08/17 16:45> - Assessment and Plan The exam, history, and the medical decision-making described in the above note were completed with the assistance of the resident physician. I reviewed and agree with the findings presented. I attest that I had a [id number] encounter with the patient on the same day, and personally performed and documented my assessment and findings in the medical record. Awaiting pathology report and cultures of his toe. Hopefully tomorrow Monday the pathology lab will be able to have some idea of timing and whether there is any problems that require antibiotics. With a mycobacterial culture that is such a long time to wait the patient should not have to stay in the hospital until that final result comes back. <Shreya Gould - 10/09/17 12:44> 71 yo male with PMH of CVD, ESRD presenting with swollen/necrotic left 3rd toe. Podiatry, vascular surgery, nephrology consulted. <Ayde Quiroz - 10/08/17 10:51> Discussed Condition With: Dr. Driver, Dr. 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 <Shreya Gould - Last Filed: 10/09/17 12:44> 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 <Ayde Quiroz - Last Filed: 10/08/17 16:45> 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 <Shreya Gould - Last Filed: 10/09/17 12:44> 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
[2017-10-09] MEDS: Heparin - SQ 10,000 UNITS/ML Vial SQ SCH ×3 (05:30→23:02)
[2017-10-09] MEDS: Calcium Acetate 667 MG Capsule PO SCH ×3 (08:45→18:38)
[2017-10-09] MEDS: FLUoxetine 20 MG Capsule PO SCH (08:45)
--- NOTE | 2017-10-09 10:37 | P.PNNP ---
Subjective Interval history: Complaining of increased pain in left leg. No shortness of breath. No Edema. <Sonia Parr - Last Filed: 10/09/17 14:24> Physical Exam Vital signs: Vital Signs 10/08/17 12:00 10/08/17 16:00 10/08/17 20:00 Temperature 97.3 F L 97.4 F L 97.9 F Pulse Rate 60 62 60 Respiratory Rate 18 18 17 Blood Pressure 106/51 L 114/51 L 99/75 L Pulse Oximetry 99 100 100 10/09/17 00:00 10/09/17 01:30 10/09/17 04:00 Temperature 98 F 98.4 F Pulse Rate 60 60 Respiratory Rate 17 17 17 Blood Pressure 116/53 L 94/49 L Pulse Oximetry 91 L 91 L 10/09/17 08:00 Temperature 97.1 F L Pulse Rate 61 Respiratory Rate 17 Blood Pressure 108/53 L Pulse Oximetry 100 Intake & Output 10/08/17 10/09/17 10/09/17 18:59 06:59 18:59 Intake Total 500 / 500 Balance 500 / 500 Weight 79.4 kg Intake: Oral 500 / 500 Other: # Voids 2 Date of Last Bowel Movement 10/07/17 10/07/17 # Bowel Movements 1 Narrative: GENERAL: Alert and oriented. HEENT: normocephalic, atraumatic HEART: RRR, S1/S2, murmur present LUNGS: clear to auscultation bilaterally. Regular breathing, no accessory muscle use. ABDOMEN: soft, nontender. + BS, no masses EXTREMITIES: Absent edema, non palpable pulses FOOT EXAM : Left foot: no redness or drainage noted. Several lesions on right foot. <Sonia Parr - Last Filed: 10/09/17 14:24> Assessment and Plan - Assessment (1) ESRD (end stage renal disease) Code(s): N18.6 - End stage renal disease Status: Chronic Plan: : End stage renal disease on regular scheduled days are Monday, , and Monday Avoid Gadolinium. High protein, low potassium and phosphorus diet. Monitor labs including phosphorus intermittently. Plan for hemodialysis tomorrow will remove fluid as tolerated. 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 L Mid toe amputation 10/05 (4) Hypertension Code(s): I10 - Essential (primary) hypertension Status: Chronic Qualifiers: Hypertension type: renovascular hypertension Qualified Code(s): I15.0 - Renovascular hypertension Plan: Will monitor, on coreg. 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 Code(s): L97.904 - Non-pressure chronic ulcer of unspecified part of unspecified lower leg with necrosis of bone Status: Acute Plan: Defer to hospitalist/primary care team (2) ESRD (end stage renal disease) Code(s): N18.6 - End stage renal disease Status: Acute Plan: #: N18.6 :ESRD-Standard care for ESRD patient --Periodic dialysis based on clinical symptoms laboratory results and volume status --with adequacy monitoring --as well as monitoring for anemia, nutrition, bone disease, blood pressure control, --monitor access adequacy, and complications (3) Hypertension Code(s): I10 - Essential (primary) hypertension Status: Acute Qualifiers: Hypertension type: renovascular hypertension Qualified Code(s): I15.0 - Renovascular hypertension Plan: Stable (4) Anxiety Code(s): F41.9 - Anxiety disorder, unspecified Status: Acute - Plan #: OTHER PROBLEMS: Ulcer of the lower extremity, with infection, anxiety PLAN: Defer to hospitalist/primary care team <Sonia Parr - Last Filed: 10/09/17 14:24> - Assessment (1) ESRD (end stage renal disease) Code(s): N18.6 - End stage renal disease Status: Chronic (2) Congestive heart failure Code(s): I50.9 - Heart failure, unspecified Status: Chronic Qualifiers: Heart failure type: systolic Heart failure chronicity: chronic Qualified Code(s): I50.22 - Chronic systolic (congestive) heart failure (3) 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 Code(s): L97.904 - Non-pressure chronic ulcer of unspecified part of unspecified lower leg with necrosis of bone Status: Acute Qualifiers: Laterality: left Qualified Code(s): L97.924 - Non-pressure chronic ulcer of unspecified part of left lower leg with necrosis of bone (4) Hypertension Code(s): I10 - Essential (primary) hypertension Status: Chronic Qualifiers: Hypertension type: renovascular hypertension Qualified Code(s): I15.0 - Renovascular hypertension (5) Anemia Code(s): D64.9 - Anemia, unspecified Status: Chronic Qualifiers: Anemia type: due to chronic kidney disease Chronic kidney disease stage: on chronic dialysis Qualified Code(s): N18.6 - End stage renal disease; D63.1 - Anemia in chronic kidney disease; Z99.2 - Dependence on renal dialysis - Attending Attestation Pt seen with AUTOMOTIVE BRAKE SPECIALIST, agree with the AUTOMOTIVE BRAKE SPECIALIST assessment and plan <Mahsa Barnes S - Last Filed: 12/14/17 17:18>
[2017-10-09] MEDS ORDERED: Naloxone Inj 0.4 MG/ML Vial IV.PUSH PRN (11:27)
[2017-10-09] MEDS: Morphine Inj 4 MG/ML Vial IV.PUSH PRN ×2 (13:39→19:52)
--- NOTE | 2017-10-09 15:10 | P.PNFP ---
Subjective Interval history: Pt was seen an evaluated twice today. This morning he was doing well, with no complains and ready to go home. Around 11 am I received a page from the nurse because Mr Hoang was screaming in pain, yelling for help, and could not sit still. We evaluated him again and he stated his pain was the worse he's had. A 15 out of 10. It was located on his L middle calf, came on suddenly without any apparent cause. His pain was throbbing in nature and nothing was making it better. Pt had already taken his pain medication. <Cathy Germain V - 10/09/17 15:10> Results - Labs Result diagrams: 10/10/17 09:02 10/10/17 09:02 <Shreya Gould - 10/10/17 12:22> Abnormal lab results 10/10/17 10/10/17 Range/Units 09:02 09:02 RBC 3.43 L (4.50-5.90) mil/mm3 Hgb 10.6 L (13.0-17.0) gm/dL Hct 33.0 L (39.0-51.0) % Plt Count 124 L (150-450) th/mm3 Neut % (Auto) 71.2 H (16.0-70.0) % [place] % (Auto) 8.3 H (0.0-8.0) % Sodium 128 L (136-145) meq/L Chloride 88 L (98-107) meq/L BUN 32 H (7-18) mg/dL Creatinine 8.73 H (0.60-1.30) mg/dL Estimated GFR 6 L (>89) mL/min Short CBC 10/10/17 Range/Units 09:02 WBC 7.3 (4.0-11.0) th/mm3 Hgb 10.6 L (13.0-17.0) gm/dL Hct 33.0 L (39.0-51.0) % Plt Count 124 L (150-450) th/mm3 BMP 10/10/17 09:02 Sodium 128 L Potassium 4.5 Chloride 88 L Carbon Dioxide 26.3 BUN 32 H Creatinine 8.73 H Calcium 9.1 <Shreya Gould - 10/10/17 12:22> Physical Exam Vital signs: Vital Signs 10/09/17 16:00 08/20/18 16:15 10/09/17 20:00 Temperature 97.3 F L 97.6 F Pulse Rate 63 59 L 60 Respiratory Rate 16 17 Blood Pressure 108/59 L 102/59 L Pulse Oximetry 93 L 94 L 10/09/17 20:11 10/09/17 22:22 10/10/17 00:00 Temperature 98.2 F Pulse Rate 62 Respiratory Rate 18 18 16 Blood Pressure 108/50 L Pulse Oximetry 95 10/10/17 00:10 10/10/17 04:00 10/10/17 04:15 Temperature 98.5 F Pulse Rate 60 59 L 74 Respiratory Rate 17 Blood Pressure 103/57 L Pulse Oximetry 94 L 10/10/17 08:00 Temperature 97.6 F Pulse Rate 62 Respiratory Rate 16 Blood Pressure 123/56 L Pulse Oximetry 96 Intake & Output 10/09/17 10/10/17 10/10/17 18:59 06:59 18:59 Intake Total 600 / 600 Output Total 3 / 3 Balance 597 / 597 Weight 79 kg Intake: Oral 600 / 600 Output: Urine 3 / 3 Other: Date of Last Bowel Movement 10/09/17 10/09/17 # Bowel Movements 1 <Shreya Gould M - 10/10/17 12:22> Vital Signs 10/08/17 16:00 10/08/17 20:00 10/09/17 00:00 Temperature 97.4 F L 97.9 F 98 F Pulse Rate 62 60 60 Respiratory Rate 18 17 17 Blood Pressure 114/51 L 99/75 L 116/53 L Pulse Oximetry 100 100 91 L 10/09/17 01:30 10/09/17 04:00 10/09/17 08:00 Temperature 98.4 F 97.1 F L Pulse Rate 60 61 Respiratory Rate 17 17 17 Blood Pressure 94/49 L 108/53 L Pulse Oximetry 91 L 100 10/09/17 12:00 Temperature 97.0 F L Pulse Rate 60 Respiratory Rate 18 Blood Pressure 105/60 Pulse Oximetry 97 Intake & Output 10/08/17 10/09/17 10/09/17 18:59 06:59 18:59 Intake Total 500 / 500 Balance 500 / 500 Weight 79.4 kg Intake: Oral 500 / 500 Other: # Voids 2 Date of Last Bowel Movement 10/07/17 10/07/17 # Bowel Movements 1 <Cathy Germain V - 10/09/17 15:10> Narrative: GENERAL APPEARANCE: in no acute distress // re-examination pt is laying on his bed, screaming of pain, looks in pain by facial expression, holding L leg. 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 No painful. SKIN: no suspicious lesions. Other than noted on foot exam below. HEART: RRR, S1/S2, holosystolic murmur. LUNGS: clear to auscultation bilaterally. Regular breathing, no accessory muscle use. ABDOMEN: soft, nontender. + BS, no masses MALE GENITOURINARY: not examined. EXTREMITIES: Absent edema, non palpable pulses FOOT EXAM : L: amputated middle toe, with several stitches. No signs of infection. Several necrotic lesions on multiple toes bilaterally Re- examination: No acute changes on physical exam, unable to find pulses on L leg. 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 Patient afebrile, VSS, no leukocytosis, x-ray does not show any signs of osteomyelitis. Blood cultures negative x 48 hrs CTA runoff 10/02: 1. Severe diffuse arterial atherosclerotic calcifications with no significant aortic or iliac inflow stenosis. 2. Moderate to severe focal stenosis of the right SFA in the distal thigh. 3. Focal moderate stenosis of the left SFA in the distal thigh. 4. Severely diseased and diffusely calcified tibial arteries precluding definitive evaluation. However, there appeared to be multiple tandem severe stenoses/occlusions in the tibial arteries bilaterally. Patient's symptoms are therefore primarily due to runoff disease. Vascular surgery -Unable to proceed with balloon dilatation of SFAs due to severe vessels Podiatry consulted, appreciate recommendations. -Left third digit amputation at [facility] on 10/05 -Okay to discharge per podiatry once microbiology and OR pathology final -Please discharge on appropriate antibiotic -Patient to follow-up in office Dr. Felipe within 1 week of discharge -Remain limited weightbearing with heel touch to the left lower extremity in surgical shoe -Pending cultures: follow up (2) Shortness of breath Code(s): R06.02 - Shortness of breath Status: Resolved Onset Date: ~ Plan: Shortness of breath resolved on 10/07. Pt states it got better after Ativan. Due to nature of SOB, and resolving with this medication, we believe this could have been due to a panic attack. Pt continues to deny any problems breathing today. -Ativan 1mg PO q6hrs PRN for anxiety (3) ESRD (end stage renal disease) Code(s): N18.6 - End stage renal disease Status: Chronic Plan: On HD as an outpatient Neurology consulted, appreciate recommendations -Periodic hemodialysis Avoid any nephrotoxic medications Renally dose medications (4) Hypertension Code(s): I10 - Essential (primary) hypertension Status: Chronic Plan: Vital signs stable. Continue home medications: -Carvedilol decreased to 3.125 mg p.o. twice daily -Hold for low BP (5) Anxiety Code(s): F41.9 - Anxiety disorder, unspecified Status: Chronic Plan: Continue home medications. -Fluoxetine 20 mg p.o. daily -Ativan 1mg PO q6 hrs PRN (6) Congestive heart failure Code(s): I50.9 - Heart failure, unspecified Status: Chronic Plan: Currently stable. dialysis is treatment for fluid overload On Lasix 40 mg at home, currently not giving it since Lasix dose is based on dialysis routine. (7) Acute pain of left lower extremity Code(s): M79.605 - Pain in left leg Status: Acute Plan: New complaint of acute LLE pain today. Pt with severe pain, of sudden onset, located on Left middle calf. Concerning for acute limb ischemia. - Attempted to obtain Doppler signal without success - Re consulted vascular surgery for recommendations - One time dose of Morphine 4mg IV given (8) Nutrition, metabolism, and development symptoms Code(s): R63.8 - Other symptoms and signs concerning food and fluid intake Status: Acute Plan: Fluids: Encourage p.o. Electrolytes: Monitor and replete as needed. Diet: renal (9) DVT prophylaxis Status: Acute Plan: Heparin subcu 5000 units q. 8h <Neisha Roe,Zina - 10/09/17 14:50> - Assessment and Plan The exam, history, and the medical decision-making described in the above note were completed with the assistance of the resident physician. I reviewed and agree with the findings presented. I attest that I had a [id number] encounter with the patient on the same day, and personally performed and documented my assessment and findings in the medical record. Awaiting pathology report and cultures of his toe. Pathology believes they will be final today. However with his new acute pain of his LLE he will not be discharged today. We are waiting for vascular surgery recommendations and follow up. <Cathy Germain V - 10/09/17 15:10> - Attending Attestation The exam, history, and the medical decision-making described in the above note were completed with the assistance of the resident physician. I reviewed and agree with the findings presented. I attest that I had a [id number] encounter with the patient on the same day, and personally performed and documented my assessment and findings in the medical record. Unsure why he had such horrible pain which came and went. Appreciate help from Dr. 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 <Cathy Germain V - Last Filed: 10/09/17 14:50> 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
--- NOTE | 2017-10-09 16:20 | P.DCO ---
- Physical Therapy Order: Evaluate and treat, Improve ambulation, Strength and gait training - Certification I have seen patient Timmy Hoang III on 10/09/17. My clinical findings support the need for the requested home health care services because: Limited mobility due to disease progression, Patient has SOB, Deconditioned with increased weakness, Limited ability to care for self, High risk of falls I certify that my clinical findings support that this patient is homebound because: Post-op weakness, Unsteady gait/balance, Poor cardiac reserve
[2017-10-10] MEDS: Morphine Inj 4 MG/ML Vial IV.PUSH PRN ×2 (06:11→12:00)
[2017-10-10] MEDS: Heparin - SQ 10,000 UNITS/ML Vial SQ SCH ×2 (06:11→15:17)
[2017-10-10] MEDS: Calcium Acetate 667 MG Capsule PO SCH ×2 (08:43→15:17)
[2017-10-10] MEDS: FLUoxetine 20 MG Capsule PO SCH (08:44)
--- NOTE | 2017-10-10 09:53 | P.PNNP ---
Subjective Interval history: Seen during hemodialysis tolerating well. Pain level still elevated at a level of 7-8. <Sonia Parr - Last Filed: 10/10/17 09:49> Physical Exam Vital signs: Vital Signs 10/09/17 12:00 10/09/17 16:00 10/09/17 16:15 Temperature 97.0 F L 97.3 F L Pulse Rate 60 63 59 L Respiratory Rate 18 16 Blood Pressure 105/60 108/59 L Pulse Oximetry 97 93 L 10/09/17 20:00 10/09/17 20:11 10/09/17 22:22 Temperature 97.6 F Pulse Rate 60 Respiratory Rate 17 18 18 Blood Pressure 102/59 L Pulse Oximetry 94 L 10/10/17 00:00 10/10/17 00:10 10/10/17 04:00 Temperature 98.2 F 98.5 F Pulse Rate 62 60 59 L Respiratory Rate 16 17 Blood Pressure 108/50 L 103/57 L Pulse Oximetry 95 94 L 10/10/17 04:15 10/10/17 08:00 Temperature 97.6 F Pulse Rate 74 62 Respiratory Rate 18 Blood Pressure 123/56 L Pulse Oximetry 96 Intake & Output 10/09/17 10/10/17 10/10/17 18:59 06:59 18:59 Intake Total 600 / 600 Output Total 3 / 3 Balance 597 / 597 Weight 79 kg Intake: Oral 600 / 600 Output: Urine 3 / 3 Other: Date of Last Bowel Movement 10/09/17 # Bowel Movements 1 Narrative: GENERAL: Alert and oriented. HEENT: normocephalic, atraumatic HEART: RRR, S1/S2, murmur present, Left AVF with positive thrill and bruit LUNGS: clear to auscultation bilaterally. Regular breathing, no accessory muscle use. ABDOMEN: soft, nontender. + BS, no masses EXTREMITIES: Absent edema, non palpable pulses FOOT EXAM : Left foot: no redness or drainage noted, sutures well applied. Several lesions on right foot. <Sonia Parr - Last Filed: 10/10/17 09:49> Assessment and Plan - Assessment (1) ESRD (end stage renal disease) Code(s): N18.6 - End stage renal disease Status: Chronic Plan: : End stage renal disease on regular scheduled days are Monday, , and Monday Avoid Gadolinium. High protein, low potassium and phosphorus diet. Monitor labs including phosphorus intermittently. 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 L Mid toe amputation 10/05 (4) Hypertension Code(s): I10 - Essential (primary) hypertension Status: Chronic Qualifiers: Hypertension type: renovascular hypertension Qualified Code(s): I15.0 - Renovascular hypertension Plan: Will monitor, on coreg. 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 Code(s): L97.904 - Non-pressure chronic ulcer of unspecified part of unspecified lower leg with necrosis of bone Status: Acute Qualifiers: Laterality: left Qualified Code(s): L97.924 - Non-pressure chronic ulcer of unspecified part of left lower leg with necrosis of bone (4) Hypertension Code(s): I10 - Essential (primary) hypertension Status: Chronic Qualifiers: Hypertension type: renovascular hypertension Qualified Code(s): I15.0 - Renovascular hypertension (5) Anemia Code(s): D64.9 - Anemia, unspecified Status: Chronic Qualifiers: Anemia type: due to chronic kidney disease Chronic kidney disease stage: on chronic dialysis Qualified Code(s): N18.6 - End stage renal disease; D63.1 - Anemia in chronic kidney disease; Z99.2 - Dependence on renal dialysis - Attending Attestation Pt seen with RENTAL MANAGEMENT TRAINEE, agree with the RENTAL MANAGEMENT TRAINEE assessment and plan <Mahsa Barnes S - Last Filed: 12/14/17 17:17>
[2017-10-10 10:48] LABS: Calcium 9.1 mg/dL (8.5-10.1); Carbon Dioxide 26.3 meq/L (21.0-32.0); Potassium 4.5 meq/L (3.5-5.1)
[2017-10-10 10:55] LABS: Baso # (Auto) 0.1 th/mm3 (0.0-0.2); Eos # (Auto) 0.1 th/mm3 (0.0-0.4); Eos % (Auto) 1.9 % (0.0-4.0); Hemoglobin 10.6 gm/dL (13.0-17.0); Lymph # (Auto) 1.3 th/mm3 (1.0-4.8); Lymph % (Auto) 17.6 % (9.0-44.0); Mean Corpuscular HGB Conc 32.2 % (32.0-36.0); Mean Corpuscular Volume 96.2 fL (80.0-100.0); Mean Platelet Volume 9.9 fL (7.0-11.0); Mono # (Auto) 0.6 th/mm3 (0.0-0.9); Mono % (Auto) 8.3 % (0.0-8.0); Neut # (Auto) 5.2 th/mm3 (1.8-7.7); Neut % (Auto) 71.2 % (16.0-70.0); Platelet Count 124 th/mm3 (150-450); Red Blood Count 3.43 mil/mm3 (4.50-5.90); Red Cell Distribution Width 17.1 % (11.6-17.2); White Blood Count 7.3 th/mm3 (4.0-11.0)
--- NOTE | 2017-10-10 13:59 | P.PNFP ---
Results - Labs Result diagrams: 10/10/17 09:02 10/10/17 09:02 Abnormal lab results 10/10/17 10/10/17 Range/Units 09:02 09:02 RBC 3.43 L (4.50-5.90) mil/mm3 Hgb 10.6 L (13.0-17.0) gm/dL Hct 33.0 L (39.0-51.0) % Plt Count 124 L (150-450) th/mm3 Neut % (Auto) 71.2 H (16.0-70.0) % [place] % (Auto) 8.3 H (0.0-8.0) % Sodium 128 L (136-145) meq/L Chloride 88 L (98-107) meq/L BUN 32 H (7-18) mg/dL Creatinine 8.73 H (0.60-1.30) mg/dL Estimated GFR 6 L (>89) mL/min Short CBC 10/10/17 Range/Units 09:02 WBC 7.3 (4.0-11.0) th/mm3 Hgb 10.6 L (13.0-17.0) gm/dL Hct 33.0 L (39.0-51.0) % Plt Count 124 L (150-450) th/mm3 BMP 10/10/17 09:02 Sodium 128 L Potassium 4.5 Chloride 88 L Carbon Dioxide 26.3 BUN 32 H Creatinine 8.73 H Calcium 9.1 Physical Exam Vital signs: Vital Signs 10/09/17 16:00 10/09/17 16:15 10/09/17 20:00 Temperature 97.3 F L 97.6 F Pulse Rate 63 59 L 60 Respiratory Rate 16 17 Blood Pressure 108/59 L 102/59 L Pulse Oximetry 93 L 94 L 10/09/17 20:11 10/09/17 22:22 10/10/17 00:00 Temperature 98.2 F Pulse Rate 62 Respiratory Rate 18 18 16 Blood Pressure 108/50 L Pulse Oximetry 95 10/10/17 00:10 10/10/17 04:00 10/10/17 04:15 Temperature 98.5 F Pulse Rate 60 59 L 74 Respiratory Rate 17 Blood Pressure 103/57 L Pulse Oximetry 94 L 10/10/17 08:00 Temperature 97.6 F Pulse Rate 62 Respiratory Rate 16 Blood Pressure 123/56 L Pulse Oximetry 96 Intake & Output 10/09/17 10/10/17 10/10/17 18:59 06:59 18:59 Intake Total 600 / 600 Output Total Balance 597 / 597 Weight 79 kg Intake: Oral 600 / 600 Output: Urine Other: Date of Last Bowel Movement 10/09/17 10/09/17 # Bowel Movements 1 Assessment and Plan - Assessment and Plan The exam, history, and the medical decision-making described in the above note were completed with the assistance of the resident physician. I reviewed and agree with the findings presented. I attest that I had a [id number] encounter with the patient on the same day, and personally performed and documented my assessment and findings in the medical record. Awaiting pathology report and cultures of his toe. Pathology believes they will be final today. However with his new acute pain of his LLE he will not be discharged today. We are waiting for vascular surgery recommendations and follow up.
[2017-10-10 16:23] VITALS: BP 109/48; PULSE 60; RESP 18; TEMP 97.2; O2SAT 92
--- NOTE | 2017-10-10 16:25 | P.PNFP ---
Subjective Interval history: Mr Hoang is doing well today he has wanted to go home for about the past week. He had an episode of terrible pain in the afternoon yesterday however he was evaluated by Dr. Rojo and was not found to require any further surgery nor ischemia to the point where he was imminently going to lose his limb. Mr. Hoang did well with dialysis he has been eating well he has been up ambulating and getting physical therapy. He understands he will get any IV pain medicine when he goes home and is fine with that. He repeatedly stated he did not want to go to a snf he only wants to go home with home health and PT. Results - Labs Result diagrams: 10/10/17 09:02 10/10/17 09:02 Abnormal lab results 10/10/17 10/10/17 Range/Units 09:02 09:02 RBC 3.43 L (4.50-5.90) mil/mm3 Hgb 10.6 L (13.0-17.0) gm/dL Hct 33.0 L (39.0-51.0) % Plt Count 124 L (150-450) th/mm3 Neut % (Auto) 71.2 H (16.0-70.0) % Emmet % (Auto) 8.3 H (0.0-8.0) % Sodium 128 L (136-145) meq/L Chloride 88 L (98-107) meq/L BUN 32 H (7-18) mg/dL Creatinine 8.73 H (0.60-1.30) mg/dL Estimated GFR 6 L (>89) mL/min Short CBC 10/10/17 Range/Units 09:02 WBC 7.3 (4.0-11.0) th/mm3 Hgb 10.6 L (13.0-17.0) gm/dL Hct 33.0 L (39.0-51.0) % Plt Count 124 L (150-450) th/mm3 BMP 10/10/17 09:02 Sodium 128 L Potassium 4.5 Chloride 88 L Carbon Dioxide 26.3 BUN 32 H Creatinine 8.73 H Calcium 9.1 Physical Exam Vital signs: Vital Signs 10/09/17 16:15 10/09/17 20:00 10/09/17 20:11 Temperature 97.6 F Pulse Rate 59 L 60 Respiratory Rate 17 18 Blood Pressure 102/59 L Pulse Oximetry 94 L 10/09/17 22:22 10/10/17 00:00 10/10/17 00:10 Temperature 98.2 F Pulse Rate 62 60 Respiratory Rate 18 16 Blood Pressure 108/50 L Pulse Oximetry 95 10/10/17 04:00 10/10/17 04:15 10/10/17 08:00 Temperature 98.5 F 97.6 F Pulse Rate 59 L 74 62 Respiratory Rate 17 16 Blood Pressure 103/57 L 123/56 L Pulse Oximetry 94 L 96 Intake & Output 10/09/17 10/10/17 10/10/17 18:59 06:59 18:59 Intake Total 600 / 600 Output Total 3 / 3 Balance 597 / 597 Weight 79 kg Intake: Oral 600 / 600 Output: Urine Other: Date of Last Bowel Movement 10/09/17 10/09/17 # Bowel Movements 1 Narrative: GENERAL: Alert and oriented. HEENT: normocephalic, atraumatic HEART: RRR, S1/S2, murmur present, Left AVF with positive thrill and bruit LUNGS: clear to auscultation bilaterally. Regular breathing, no accessory muscle use. ABDOMEN: soft, nontender. + BS, no masses EXTREMITIES: Absent edema, non palpable pulses FOOT EXAM : Left foot: no redness or drainage noted, sutures well applied. Several lesions on right foot. 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 Patient afebrile, VSS, no leukocytosis, x-ray does not show any signs of osteomyelitis. Blood cultures negative x 48 hrs CTA runoff 10/02: 1. Severe diffuse arterial atherosclerotic calcifications with no significant aortic or iliac inflow stenosis. 2. Moderate to severe focal stenosis of the right SFA in the distal thigh. 3. Focal moderate stenosis of the left SFA in the distal thigh. 4. Severely diseased and diffusely calcified tibial arteries precluding definitive evaluation. However, there appeared to be multiple tandem severe stenoses/occlusions in the tibial arteries bilaterally. Patient's symptoms are therefore primarily due to runoff disease. Vascular surgery -Unable to proceed with balloon dilatation of SFAs due to severe vessels Podiatry consulted, appreciate recommendations. -Left third digit amputation at [facility] on 10/05 -Okay to discharge per podiatry once microbiology and OR pathology final -Please discharge on appropriate antibiotic -Patient to follow-up in office Dr. Felipe within 1 week of discharge -Remain limited weightbearing with heel touch to the left lower extremity in surgical shoe -Pending cultures: followed up (2) Osteomyelitis Code(s): M86.9 - Osteomyelitis, unspecified Status: Acute Plan: His toe was amputated and there was osteo of the part of the toe that was removed but the part that was left was clear. The margins were clear so he has no osteomyelitis left in his body. He has remained afebrile and his white count has been fine so will not treat him with antibiotics at this time. (3) ESRD (end stage renal disease) Code(s): N18.6 - End stage renal disease Status: Chronic Plan: On HD as an outpatient Neurology consulted, appreciate recommendations -Periodic hemodialysis Avoid any nephrotoxic medications Renally dose medications (4) Hypertension Code(s): I10 - Essential (primary) hypertension Status: Chronic Plan: Vital signs stable. Continue home medications: -Carvedilol decreased to 3.125 mg p.o. twice daily -Hold for low BP (5) Anxiety Code(s): F41.9 - Anxiety disorder, unspecified Status: Chronic Plan: Continue home medications. -Fluoxetine 20 mg p.o. daily -Ativan 1mg PO q6 hrs PRN He had panic attacks while he was here in the hospital. (6) Congestive heart failure Code(s): I50.9 - Heart failure, unspecified Status: Chronic Plan: Currently stable. dialysis is treatment for fluid overload On Lasix 40 mg at home, currently not giving it since Lasix dose is based on dialysis routine. (7) Anemia Code(s): D64.9 - Anemia, unspecified Status: Acute Plan: Plan per hematology. (8) Shortness of breath Code(s): R06.02 - Shortness of breath Status: Resolved Onset Date: ~ Plan: Shortness of breath resolved on 10/07. Pt states it got better after Ativan. Due to nature of SOB, and resolving with this medication, we believe this could have been due to a panic attack. Pt continues to deny any problems breathing today. -Ativan 1mg PO q6hrs PRN for anxiety (9) Acute pain of left lower extremity Code(s): M79.605 - Pain in left leg Status: Acute Plan: New complaint of acute LLE pain yesterday. Pt with severe pain, of sudden onset , located on Left middle calf. Concerning for acute limb ischemia. - Attempted to obtain Doppler signal without success - Re consulted vascular surgery for recommendations - One time dose of Morphine 4mg IV given His pain spontaneously resolved and Dr. Rojo his surgeon felt that it was more related to the towel and the amputation as opposed to the leg or any ischemia in the leg. Today he is back to normal and does not have any more pain than he had. It was explained to him since he wants to go home so much that he cannot have IV pain medicine at home but he is agreeable to going home with just p.o. medicine. It is still unclear why he had such acute bouts of pain. Unsure if he had cramping in his calf muscle or other problems but it would seem to come and go very suddenly. - Assessment and Plan Discharge Planning: Now that he has had a surgery we will look for a consult from Dr. Morales and wound care doctor to see what her recommendations are. He is not any sort of candidate for surgical or interventional radiology radiologic repair of his arteries in his legs so will get physical therapy to see if he needs rehabilitation. 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 Qualifiers: Laterality: left Qualified Code(s): L97.924 - Non-pressure chronic ulcer of unspecified part of left lower leg with necrosis of bone (2) Osteomyelitis Qualifiers: Osteomyelitis type: subacute Osteomyelitis location: foot Laterality: left Qualified Code(s): M86.272 - Subacute osteomyelitis, left ankle and foot (4) Hypertension Qualifiers: Hypertension type: renovascular hypertension Qualified Code(s): I15.0 - Renovascular hypertension (6) Congestive heart failure Qualifiers: Heart failure type: systolic Heart failure chronicity: chronic Qualified Code(s): I50.22 - Chronic systolic (congestive) heart failure (7) Anemia Qualifiers: Anemia type: due to chronic kidney disease Chronic kidney disease stage: on chronic dialysis Qualified Code(s): N18.6 - End stage renal disease; D63.1 - Anemia in chronic kidney disease; Z99.2 - Dependence on renal dialysis
--- NOTE | 2017-10-14 14:52 | P.DS ---
Date of admission: 09/30/17 13:39 Primary care physician: Lorelei Choi MD Brief History from admission: 71 year old male with PMH of ESRD and CVD presents to the emergency room today due to swollen/necrotic Left middle toe. He stated he stubbed his toe on the living room stairs about 1 month ago. The toe was not bleeding when he hit it but he states that it looked black when he hit the toe. He started hopping on one foot for the majority of the month and stated that pain became throbbing as the month progressed. He describes the pain as a shocking pain, was given morphine in the ED which seemed to help his pain. He also has associated numbness and tingling in the Left foot. He can hop on his left foot but not able to be fully weightbearing. His [id number] noticed that his left middle toe was not healing appropriately and took him to the combiner ([facility]) yesterday who sent him to the emergency room with the following note: "Please admit to medicine with a consult to podiatry and vascular surgery. Left foot osteomyelitis, no pulses. Needs lab, CTA with runoff, IV antibiotics days." Pulses were detected on Doppler in the emergency room. He denies any fever, night sweats or chills, no nausea or vomiting. Denies any chest pain, shortness of breath, heart palpitations, abdominal pain, problems with urination or defecation, claudication symptoms. He is doing well today. He is stable with his vital signs afebrile his white count is normal. 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 Hoang is a 71-year-old male with a past medical history of hypertension, CKD on dialysis, PAD, COPD, and anxiety, presented to the emergency department from his combiner appointment. Mr. Hoang had bumped his middle toe of the left foot about a month before admission and slowly developed into an ulcer. Due to his severe peripheral artery disease, Mr. Hoang's toe felt to heal. Vascular surgery was consulted due to the severity of his blast vessels disease they were unable to do any procedures to improve his peripheral vascular supply to the feet. At that moment he was noted that podiatry had no other choice but to amputate the toe. During this whole time Mr. Anthony did not have any signs of sepsis or infection. No fevers, no white blood cell, no antibiotics were given during his hospitalization due to a symptomatic. The toe was amputated and was sent for pathology and it came back being osteomyelitis of the bone but with clear margins. Mr. Hoang was sent home in a stable condition with pain medications and with follow-up appointments with podiatry. He was extensively counseled about the possibility of losing his legs in the future due to the severity of his disease. During his hospitalizations Mr. Hoang also seems to have had a panic attack, presented as excessive shortness of breath. This was treated with Ativan and a result. A PE was ruled out with a VQ scan due to his kidney disease. Also during his hospitalizations Mr. Hoang received dialysis at least 3 times a week. - Time Spent with Patient Total time spent providing and/or coordinating discharge services: Greater than 30 minutes - Quality: VTE Deep Vein Thrombosis/Pulmonary Embolism Present on Admission: No Exam Vital signs: 97.2 F, p 60, RR18, 109/48 Narrative: GENERAL APPEARANCE: in NAD, white male sitting on bed. 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 No painful. SKIN: no suspicious lesions. Other than noted on foot exam below. HEART: RRR, S1/S2, holosystolic murmur. LUNGS: clear to auscultation bilaterally. Regular breathing, no accessory muscle use. ABDOMEN: soft, nontender. + BS, no masses MALE GENITOURINARY: not examined. EXTREMITIES: Absent edema, non palpable pulses FOOT EXAM : L: amputated middle toe, with several stitches. No signs of infection. Several necrotic lesions on multiple toes bilaterally. Unable to find pulses on L leg. Results Procedures completed during hospitalization: CTA of bilateral legs L middle toe amputation Labs on day of discharge: Preliminary micro results at discharge 10/05/17 14:20 Fungal Culture - Preliminary Tissue - Toe No growth in 1 week 10/05/17 14:20 Mycobacterial Culture - Preliminary Tissue - Toe No growth in 1 week 10/05/17 14:20 Fungal Culture - Preliminary Wound - Toe No growth in 1 week 10/05/17 14:20 Mycobacterial Culture - Preliminary Wound - Toe No growth in 1 week - Impressions ITS Impressions Foot CT 09/30/17 00:00 CONCLUSION: 1. No acute fracture or joint dislocation. Aorta w/Runoff CTA 10/02/17 00:00 CONCLUSION: 1. Severe diffuse arterial atherosclerotic calcifications with no significant aortic or iliac inflow stenosis. 2. Moderate to severe focal stenosis of the right SFA in the distal thigh. 3. Focal moderate stenosis of the left SFA in the distal thigh. 4. Severely diseased and diffusely calcified tibial arteries precluding definitive evaluation. However, there appeared to be multiple tandem severe stenoses/occlusions in the tibial arteries bilaterally. Patient's symptoms are therefore primarily due to runoff disease. 5. Nodular appearance of the liver consistent with cirrhosis. 6. Very trace left pleural effusion. 7. Cholelithiasis. 8. Sigmoid diverticulosis. Lower Extremity Angiography 10/03/17 00:00 CONCLUSION: 1. The examination demonstrates severe small vessel disease below the level of the knee bilaterally. This does not appear amenable to endovascular repair for treatment. This is described in detail above. Foot X-Ray 10/05/17 00:00 CONCLUSION: 1. Changes consistent with interval amputation of the third digit. There is soft tissue air in the adjacent soft tissues likely postsurgical in etiology. 2. Severe small vessel arterial calcification. Pulmonary Perfusion Imaging 10/06/17 00:00 CONCLUSION: 1. Low probability for pulmonary embolus. Chest X-Ray 10/06/17 02:06 CONCLUSION: Cardiomegaly. Increased density at the left lung likely related to some underlying consolidation or atelectasis.. Discharge Plan - Discharge Disposition Patient Disposition: Disch W/Home Health Service - Discharge Condition Condition: Stable - Discharge Order Discharge Orders: Discharge Order (Routine); Ordered 10/10/17 Ordered By: Cathy Roe Podiatry Clear for Discharge (Routine); Ordered 10/07/17 Ordered By: Leonie Felipe - Physicians Team Primary Care Provider: Lorelei Choi Attending Provider: Shreya Gould Other Providers: Eloy Zarate MD ; Osman Biggs DPM ; Sathish Hale MD ; Bridgette Silva MD ; Austen Sky MD
== END 2017-10-10 18:06 | disposition home health service (06) ==
LOC: NEPC 11:08 → NEDA 13:39 → N06 18:55
PROVIDERS: ADMIT Family Medicine; ATTEND Family Medicine